=== PATIENT | female | born 1950 | race Caucasian/White ===

== ENCOUNTER → 2020-05-06 10:33 | Outpatient (BNVA) | payer MEDICARE, SELFPAY | PROVIDERS: PCP Family Medicine; Referring Provider Otolaryngology; Visit Provider Hospitalist | DX: R91.8 Other nonspecific abnormal finding of lung field (principal); J45.909 Unspecified asthma, uncomplicated; J98.11 Atelectasis; Z79.899 Other long term (current) drug therapy | CPT/HCPCS: 99214 ==

== ENCOUNTER → 2020-07-22 14:42 | Outpatient (BNVA) | payer MEDICARE, SELFPAY | PROVIDERS: PCP Family Medicine; Visit Provider Student in an Organized Health Care Education/Training Program | DX: M25.50 Pain in unspecified joint (principal); Z87.81 Personal history of (healed) traumatic fracture | CPT/HCPCS: 99202 ==

== ENCOUNTER → 2020-09-16 15:07 | Outpatient (BNVA) | payer MEDICARE, SELFPAY | PROVIDERS: PCP Family Medicine; Visit Provider Student in an Organized Health Care Education/Training Program | DX: Z76.89 Persons encountering health services in other specified circumstances (principal) | CPT/HCPCS: Q3014 ==

== ENCOUNTER 2020-10-15 12:40 | Outpatient (RCR) | payer MEDICARE, SELFPAY ==
--- NOTE | 2020-10-15 15:32 | MHC.PT.EP ---
[facility] [place] Office [place] Office [place] Office [address] Remy Garcia [address] [phone] F: [phone] F: [phone] F: [phone] F: [phone] Physical Therapy Plan of Care Date of Evaluation: 10/15/20 Date of Surgery: NA Diagnosis: LUMBAR SPINE PAIN Assessment: Pt IS 70 YO F REFERRED TO PT FROM DR JONES WITH LBP. Pt WITH ARTHRITIS IN LB AND OTHER AREAS. PRESENTS WITH LIMITED TRUNK AND LE FLEXIBLITY AND STRENGTH WITH ANTALGIC GT AND C/O PAIN IN LB (R SIDE WORSE THAN L) INTO R LE AND UP INTO R FLANK. Pt HAS NOT HAD PT IN PAST. REPORTS WOULD LIKE TO BE ABLE TO WALK FURTHER AND DO HOUSEWORK WITHOUT SIGNIF PAIN HER GOALS. SHOULD BENEFIT FROM PT FOR STRETCHING AND STRENGTHENING PROGRAM TO HELP MEET THESE GOALS Frequency and Duration: The patient will be seen 2X/WK X 6 WKS Short Term Goals: 1. I HEP WITH DC EX PLAN 2. INCREASED AWARENESS BACK CARE/POSTURE/BODY MECH 3. Pt ABLE TO WALK 15 MIN WITHOUT INCREASE IN BACK PAIN 4. CENTRALIZE SXS Tube Knitter Goals: 1. DECREASED BACK PAIN AT LEAST 50% WITH ADLS 2. DECREASED END RANGE PAIN WITH TRUNK ROM 3. Pt ABLE TO WALK 1 MILE WITHOUT SIGNIF INCREASE IN BACK PAIN Treatment Plan: Modalities to reduce pain, spasms and effusion. Manual therapy to restore motion and function. Therapeutic exercise to improve strength and flexibility. Neuromuscular re-education for posture and balance. Therapeutic activities to return to functional activities of daily living. Electronically signed by: MARIBEL MIX PT Please sign and return to therapist. Thank you for your referral.
== END 2020-11-24 12:40 | disposition other institution (70) ==
LOC: HO.PTWFD 12:40
PROVIDERS: PCP Family Medicine; Visit Provider Student in an Organized Health Care Education/Training Program
DX: M25.50 Pain in unspecified joint (principal)
CPT/HCPCS: 97110; 97161

== ENCOUNTER → 2020-11-04 11:23 | Outpatient (BNVA) | payer MEDICARE, SELFPAY | PROVIDERS: PCP Family Medicine; Visit Provider Hospitalist | DX: J44.9 Chronic obstructive pulmonary disease, unspecified (principal); R91.8 Other nonspecific abnormal finding of lung field; J98.11 Atelectasis; M35.01 Sjogren syndrome with keratoconjunctivitis; Z88.6 Allergy status to analgesic agent; Z87.891 Personal history of nicotine dependence | CPT/HCPCS: Q3014 ==

== ENCOUNTER 2021-01-26 07:47 | Outpatient (REF) | payer MEDICARE, SELFPAY ==
--- NOTE | ~2021-01-26 | XR_ITS ---
EXAMINATION: XR CHEST CLINICAL INFORMATION: Hemoptysis COMPARISON: Previous chest x-ray July 2017 from [facility] TECHNIQUE: 2 views of the chest were obtained. FINDINGS: The cardiac and mediastinal contours are stable. The lungs are clear. There is no pleural effusion or pneumothorax. There are degenerative changes of the spine. XR/XR chest 2V IMPRESSION: No evidence for acute disease in the chest.
== END 2021-01-26 07:48 | disposition home or self-care (01) ==
LOC: HO.XRAY 07:47
PROVIDERS: PCP Family Medicine; Visit Provider Hospitalist
DX: R04.2 Hemoptysis (principal); J44.9 Chronic obstructive pulmonary disease, unspecified; R91.8 Other nonspecific abnormal finding of lung field; Z87.891 Personal history of nicotine dependence; Z79.899 Other long term (current) drug therapy
CPT/HCPCS: 71046; 99212

== ENCOUNTER 2021-03-03 12:46 | Outpatient (REF) | payer MEDICARE, SELFPAY ==
--- NOTE | 2021-03-03 16:17 | PFT_ITS ---
FLOWS: FEV1 99% of predicted at 2.62 L. FVC 95% of predicted at 3.32 L. FEV1 to FVC ratio of 0.79. No bronchodilator response except in small to medium airways. LUNG VOLUMES: Total lung capacity 89% of predicted at 5.04 L. Residual volume 79% of predicted at 1.91 L. Slow vital capacity 96% of predicted at 3.13 L. Expiratory reserve volume 12% of predicted at 0.11 L. Diffusion capacity is mildly decreased. IMPRESSION: No obstructive or restrictive ventilatory defect. No bronchodilator response except in small to medium airways. Decreased expiratory reserve volume suggests extrathoracic restriction likely secondary to abdominal obesity. Decreased diffusion capacity suggests emphysema. MD CIPRIANO Celeste/MODL / [id number]
== END 2021-03-03 12:47 | disposition home or self-care (01) ==
LOC: HO.RESP 12:46
PROVIDERS: PCP Family Medicine; Visit Provider Hospitalist
DX: J44.9 Chronic obstructive pulmonary disease, unspecified (principal)
CPT/HCPCS: 94060; 94727; 94729

== ENCOUNTER → 2021-03-18 10:02 | Outpatient (BNVA) | payer MEDICARE, SELFPAY | PROVIDERS: PCP Family Medicine; Visit Provider Student in an Organized Health Care Education/Training Program | DX: M35.01 Sjogren syndrome with keratoconjunctivitis (principal); M85.80 Other specified disorders of bone density and structure, unspecified site; E55.9 Vitamin D deficiency, unspecified; M47.816 Spondylosis without myelopathy or radiculopathy, lumbar region | CPT/HCPCS: 99212 ==

== ENCOUNTER → 2021-04-27 14:11 | Outpatient (BNVA) | payer MEDICARE, SELFPAY | PROVIDERS: PCP Family Medicine; Visit Provider Hospitalist | DX: J44.9 Chronic obstructive pulmonary disease, unspecified (principal); R91.8 Other nonspecific abnormal finding of lung field; J98.11 Atelectasis; J45.909 Unspecified asthma, uncomplicated; R06.00 Dyspnea, unspecified; M35.01 Sjogren syndrome with keratoconjunctivitis | CPT/HCPCS: Q3014 ==

== ENCOUNTER 2021-05-20 14:32 | Outpatient (REF) | payer MEDICARE, SELFPAY ==
--- NOTE | ~2021-05-20 | CT_ITS ---
EXAMINATION: CT CHEST WITHOUT CONTRAST CLINICAL INFORMATION: Hemoptysis COMPARISON: Previous chest x-rays most recent December 2020 TECHNIQUE: Multidetector volumetric CT imaging of the chest was done. Axial MIP volume rendering provided. Sagittal and coronal reformatted images were obtained. This CT examination was performed using dose optimization techniques as appropriate, variously including the following: *Automated exposure control *Adjustment of mA and/or kV according to patient size (this includes techniques or standardized protocols for targeted exams where dose is matched to indication/reason for exam; i.e. extremities or head) *Use of iterative reconstruction technique DLP: 215 mGy-cm FINDINGS: LUNGS: There is a 5 mm nodule near the major fissure. This is immediately adjacent to vessels and is questionable for a vascular lesion axial image 256 series 7. There are increased peripheral or subpleural linear markings and some denser atelectasis or airspace disease in the posterior right lower lobe. There is an adjacent small cyst or bulla measuring 8 mm axial image 447 series 7. Some of this may may represent right lower lobe compression or atelectasis related to vertebral body bony osteophyte. There is a 4 mm peripheral or subpleural right lower lobe nodule versus atelectasis lateral costophrenic angle right lower lobe axial image 4:30 series 7. There is a 3 mm peripheral or subpleural left lower lobe nodule adjacent to the fissure axial image 289 series 7 suggestive of a subpleural lymph node. No endobronchial or endotracheal lesion is seen. MEDIASTINUM: The mediastinum is normal. PLEURA: There is no pleural effusion. No pleural mass or thickening. AXILLA: No lymphadenopathy. UPPER ABDOMEN: The liver is low in attenuation suggestive of fatty infiltration. The gallbladder has been removed. OSSEOUS STRUCTURES: There are degenerative changes of the spine. CT/CT chest wo con IMPRESSION: 5 mm right pulmonary nodule near the major fissure abutting the vessels. Appearance is questionable for a vascular lesion, AVM or varix. Follow-up CTA of the chest should be considered. Question compressive atelectasis of the posterior right lower lobe adjacent to vertebral body bony osteophyte. Small pulmonary nodules or micronodules probably representing small lymph nodes. According to the UPDATED 2017 Fleischner Society recommendations, the advised follow-up imaging for less than 6 mm nodule: Low risk, no chest CT follow-up and high risk, optional chest CT follow-up in one year.
== END 2021-05-20 14:33 | disposition home or self-care (01) ==
LOC: HO.CT 14:32
PROVIDERS: PCP Family Medicine; Visit Provider Hospitalist
DX: R91.8 Other nonspecific abnormal finding of lung field (principal); J98.11 Atelectasis; R06.00 Dyspnea, unspecified; M35.01 Sjogren syndrome with keratoconjunctivitis
CPT/HCPCS: 71250

== ENCOUNTER 2021-11-23 13:48 | Outpatient (REF) | payer MEDICARE, SELFPAY ==
--- NOTE | ~2021-11-23 | CT_ITS ---
EXAMINATION: CT CHEST WITHOUT CONTRAST CLINICAL INFORMATION: Follow up pulmonary nodules. COMPARISON: CT chest 05/20/2021. TECHNIQUE: Multidetector volumetric CT imaging of the chest was done. Axial MIP volume rendering provided. Sagittal and coronal reformatted images were obtained. This CT examination was performed using dose optimization techniques as appropriate, variously including the following: *Automated exposure control *Adjustment of mA and/or kV according to patient size (this includes techniques or standardized protocols for targeted exams where dose is matched to indication/reason for exam; i.e. extremities or head) *Use of iterative reconstruction technique DLP: 245 mGy-cm FINDINGS: SOLAR ENERGY SYSTEM INSTALLER: Well-inflated lungs. LUNGS: The lungs are well inflated without acute process. There is a known pulmonary nodule adjacent to the major fissure right upper lobe posteriorly measuring 6 mm on axial image 273/7, previously measured 5 mm. There is a 5 mm nodule left lower lobe superior segment axial image 374/7 previously measured 4 mm on axial image 372/7, 5 mm nodule right CP angle axial image 449/7, previously measured 4 mm. There is a small bulla with adjacent compressive atelectasis with air bronchogram posteromedial basal segment right lower lobe, stable. Minimal compressive atelectatic changes along the posteromedial segment extending superiorly from this bulla is noted similar in fashion to previous study. The ground-glass density seen in the posterior right lower lobe in the retrocardiac area has resolved. Previously seen on axial image 354/7. Minimal subpleural reticular stranding is seen in left lower lobe. MEDIASTINUM: The thyroid lobes are symmetric and normal. The central trachea and the bronchi are widely patent. Heart size and the great vessels are normal caliber. Small peritracheal lymph nodes are present. No pericardial effusion seen. PLEURA: There is no pleural effusion. No pleural mass or thickening. AXILLA: Small shotty lymph nodes are seen in the axilla. UPPER ABDOMEN: Visualized liver, spleen, pancreas and bilateral adrenal glands are unremarkable. The gallbladder has been surgically removed. OSSEOUS STRUCTURES: No aggressive lytic or sclerotic process seen. There is moderate ventral dorsal spine spondylosis. CT/CT chest wo con IMPRESSION: Minimal increase in pulmonary nodules by 1 mm compared to last study 05/20/2021. Right lower lobe bulla with adjacent atelectasis medial basal segment is stable. Recommend followup PET/CT exam or followup CT in 1 year. Fleischner guidelines were followed.
== END 2021-11-23 13:49 | disposition home or self-care (01) ==
LOC: HO.CT 13:48
PROVIDERS: Visit Provider Hospitalist
DX: R91.8 Other nonspecific abnormal finding of lung field (principal)
CPT/HCPCS: 71250

== ENCOUNTER → 2021-12-08 11:04 | Outpatient (BNVA) | payer MEDICARE, SELFPAY | PROVIDERS: PCP Family Medicine; Visit Provider Hospitalist | DX: Z13.89 Encounter for screening for other disorder (principal) | CPT/HCPCS: Q3014 ==

== ENCOUNTER 2023-11-28 14:42 | Outpatient (AMB) | payer MEDICARE, SELFPAY ==
[2023-11-28 14:51] VITALS: BP 124/76; PULSE 83; RESP 18; O2SAT 96; BMI 32.0
--- NOTE | 2023-11-28 14:51 | A.OFFVIS_ITS ---
Vital Signs 11/28/23 14:51 Height 5 ft 8 in Weight 210 lb 3 oz BMI 32.0 BP 124/76 Blood Pressure Location Lt brachial Position Sitting Respiration 18 Pulse 83 Pulse Source Pulse Oximeter Pulse Oximetry (%) 96 Oxygen Delivery Method Room Air Intake Visit Reasons: copd/pulm nodules Allergies acetaminophen [From PERCOCET] Allergy (Severe, Verified 11/28/23 14:48) RASH HPI Comments Details: The patient is a 73-year-old woman with known history of pulmonary nodules and asthma. Overall her respiratory status waxes and wanes. She still has a difficult time going up a flight of stairs. Joic-wj-[id number] severity. She does use her Symbicort on a regular basis. She tries not to use her rescue inhaler. She is concerned about the winter because as usually her worse months. At this point will optimize her respiratory therapy adding Spiriva to her regimen. We also looked at her CT scan of the chest last done August 2019 demonstrating stable pulmonary nodules although she did have increased atelectasis specially at the right base. Will plan to repeat a CT scan of the chest sometime in the fall of 2020. 12/08/2021 the patient has a telephone visit today. She is doing relatively well. Denies any significant shortness of breath or wheezing. She does have intermittent cough mild in severity. She continues use her nebulized therapy with good response. She did recently have a CT scan of the chest that I personally reviewed and compared to previous. Patient has multiple pulmonary nodules. It appears that 1 of the nodules slightly increased in size. But all the nodules are subcentimeter in size largest 1 measuring 6 mm. There was a question of PET scan on the actual impression from the radiologist. However explained to the patient that based on the small size a PET scan would not be an accurate study at this time. No significant changes from the nodule standpoint. Will request another CT scan in a year's time. Will plan to discuss the case in tumor conference with Radiology present. This will be can clear 5 the request for PET scan. we also reviewed her last pulmonary function study that actually occurred back in March 2021 which demonstrated a mild diffusion impairment along with a low normal total lung capacity. The patient understands that she does have increased abdominal pressure due to an elevated BMI that is likely contributing to the low total lung capacity and diffusing capacity. The patient also has some evidence of atelectasis on her CT scan although some of it has actually improved when compared to previous. 11/28/2023 the patient is here for pulmonary follow-up visit. Overall the patient has been doing well. She was lost to follow-up for appeared of time because she was trying change her care to [facility]. But was too far away. Her last CT scan of the chest was back in January 2023 and will send a Bakari. I do have city although have not been able to downloaded into the system. They did documented new 3 mm pulmonary nodule. His hard to know if this nodule is completing but we need to compared to previous. The patient has had numerous nodules prior to that. The largest nodule documented on her last CT scan from [place] back in January was most 5.9-6 mm in size. On that CT scan also described ground-glass opacities in the dimensions small airways disease suggesting mosaic pattern. We did review her most recent CT scan that we have available the system from 2021 and I did not see any mosaic pattern at that time. The patient did have significant atelectasis primarily in the right lower lobe area. Once we were able to download this CD will get compare. The patient is concerned about too many CT scans because the very expensive with a co-pay of 250 dollars. Therefore will try to minimize the exposure to radiation into the exposure to the cat scans. Although now with a new 3 mm pulmonary nodule we need to continue surveillance. She stopped the nebulized therapy was switched over to Symbicort. She does use it as needed. She is still getting shortness breath with activity. Gqph-ac-npfzixig severity. She also has other comorbidities such as musculoskeletal issues that also limit her activity. She does we did talk about pulmonary rehabilitation. When she finishes home physical therapy we can consider pulmonary function studies in order to get a pulmonary rehabilitation. [facility] Medical History (Updated 11/28/23 @ 21:16 by Yogi Villasenor MD) Dyspnea Asthma-COPD overlap syndrome Osteopenia Atelectasis Pulmonary nodules Asthma Surgical History Hx of cholecystectomy Family History Other HTN (hypertension) Social History Alcohol intake: current Patient Tobacco Use Status: Former Tobacco user Tobacco use type: Cigarette Years Smoked: 5 years Review of Systems Const Denies night sweats ENT Denies change in voice, Denies lip swelling, Reports epistaxis, Denies mouth pain, Reports nasal congestion, Reports nasal discharge and Denies tongue swelling Card Denies chest pain and Reports dyspnea on exertion Resp Reports cough, Denies hemoptysis and Reports dyspnea on exertion GI Denies abdominal pain Musc Reports abnormal gait Neuro Denies Neuro-related abnormal movements and Reports abnormal gait Psych Denies no additional complaints Solis/Lymph Denies easy bleeding and Denies lymphadenopathy Aller/Immun Denies lip swelling and Denies tongue swelling Physical Exam Vital Signs: Last Vital Signs Pulse 83 11/28/23 14:51 Resp 18 11/28/23 14:51 BP 124/76 11/28/23 14:51 Pulse Ox 96 11/28/23 14:51 Oxygen Delivery Method Room Air 11/28/23 14:51 BMI result Body Mass Index 32.0 Const General: comfortable and alert HEENT Head: Yes normocephalic General nose exam: Abnormal external nose present and Nasal discharge present Eyes Pupils: Equal, round and reactive pupils present Neck Neck: Yes normal visual inspection, Yes full ROM and Yes no lymphadenopathy Chest Chest palpation & inspection: normal inspection of the chest Resp Effort & Inspection: normal respiratory effort Auscultation: diminished lung sounds Cardio Rate: regular rate Rhythm: regular rhythm Heart sounds: S1 normal heart sound present and S2 normal heart sound present GI Palpation (GI): Soft to palpation and nontender Auscultation: normal bowel sounds General: Yes no CVA tenderness Back/Spine/Pelvis Back: no CVA tenderness Skin General skin exam: no rashes or lesions noted Neuro Cranial nerves: Yes Equal, round and reactive pupils present Extrem General: Yes no clubbing, cyanosis or edema Assessment & Plan Assessment & Plan (1) Asthma-COPD overlap syndrome: Code(s): J44.9 - Chronic obstructive pulmonary disease, unspecified Category: Medical (2) Pulmonary nodules: Code(s): R91.8 - Other nonspecific abnormal finding of lung field Category: Medical (3) Sjogren's syndrome with keratoconjunctivitis sicca: Code(s): M35.01 - Sjogren syndrome with keratoconjunctivitis Category: Medical (4) Dyspnea: Code(s): R06.00 - Dyspnea, unspecified Category: Medical Qualifiers: Dyspnea type: dyspnea on exertion Qualified Code(s): R06.09 - Other forms of dyspnea (5) Atelectasis: Code(s): J98.11 - Atelectasis Category: Medical (6) Asthma: Code(s): J45.909 - Unspecified asthma, uncomplicated Category: Medical Qualifiers: Asthma severity: moderate Asthma persistence: persistent Asthma complication type: uncomplicated Qualified Code(s): J45.40 - Moderate persistent asthma, uncomplicated Plan Continue symbicort CT chest in 1 year F/U 6-12 months Medications: New budesonide-formoterol 80-4.5 mcg/actuation (Symbicort) 2 puffs inhalation Q12H 90 days 10.2 grams 3RF Coding Level of Care Code Est Pt Level 4 (38932) Diagnoses Asthma-COPD overlap syndrome J44.9 Pulmonary nodules R91.8 Sjogren's syndrome with keratoconjunctivitis sicca M35.01 Dyspnea on exertion R06.09 Dyspnea type: dyspnea on exertion Atelectasis J98.11 Moderate persistent asthma without complication J45.40 Asthma severity: moderate Asthma persistence: persistent Asthma complication type: uncomplicated Time Spent (min) 17
== END 2023-11-28 15:17 | disposition home or self-care (01) ==
PROVIDERS: PCP Family Medicine; Referring Provider Nurse Practitioner; Visit Provider Hospitalist
DX: J44.9 Chronic obstructive pulmonary disease, unspecified (principal); R91.8 Other nonspecific abnormal finding of lung field; M35.01 Sjogren syndrome with keratoconjunctivitis; R06.09 Other forms of dyspnea; J98.11 Atelectasis; J45.40 Moderate persistent asthma, uncomplicated
CPT/HCPCS: 99214

== ENCOUNTER → 2023-11-28 14:42 | Outpatient (BNVA) | payer MEDICARE, SELFPAY | PROVIDERS: PCP Family Medicine; Referring Provider Nurse Practitioner; Visit Provider Hospitalist | DX: J44.9 Chronic obstructive pulmonary disease, unspecified (principal); R91.8 Other nonspecific abnormal finding of lung field; M35.01 Sjogren syndrome with keratoconjunctivitis; R06.09 Other forms of dyspnea; J98.11 Atelectasis; J45.40 Moderate persistent asthma, uncomplicated; Z79.899 Other long term (current) drug therapy | CPT/HCPCS: 99212 ==

== ENCOUNTER 2023-12-22 11:07 | Outpatient (AMB) | payer MEDICARE, SELFPAY ==
--- NOTE | 2023-12-22 11:17 | AM.OFFWIN_ITS ---
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 Required: No Allergies acetaminophen [From PERCOCET] Allergy (Severe, Verified 12/22/23 11:20) RASH Medication List - Last Reconciled 12/22/23 by Janelle Joseph PA-C albuterol sulfate 90 mcg/actuation 2 puffs inhalation Q6H PRN amlodipine 10 mg PO DAILY ascorbic acid (vitamin C) 500 mg PO DAILY budesonide 0.5 mg (2 mL) inhalation DAILY 30 days budesonide-formoterol 80-4.5 mcg/actuation (Symbicort) 2 puffs inhalation Q12H 90 days cyclobenzaprine 10 mg PO TID PRN 10 days losartan 100 mg PO DAILY magnesium oxide 500 mg PO DAILY omeprazole 20 mg PO DAILY Do you need a note to return to daycare/school/sports/work: No HPI Neck pain HPI Details Pt is a 73 y/o female with a self-reported medical history of arthritis, hypertension, CKD unknown stage, asthma and COPD overlap presents today to with complaints of neck pain. She states it started about a week ago. She did not have any specific trauma to the neck but did have a a fall a couple weeks prior to the neck pain starting. She did not hit her head but did lose her balance and fell backwards. She felt overall okay from the fall. She states that her neck is painful and it was hard to move her head from [id number]. She is able to look up and down without difficulty. No radiation into the arms but it does feel like it pulls into the right shoulder and upper back. She has been using ibuprofen and ice with only minimal improvement. She states that she uses the ibuprofen intermittently because she does note that she is kidney disease and should not be using it at all. She states that she really wants an injection from her clothing supervisor but her clothing supervisor will not see her because she has not sure if this is related to arthritis. She says that that is what they told her when she called to book an appointment. She is cur rently in between primary care offices and not seeing her new primary care until the fall. She was previously following with [facility] but they recently started [facility]. She states that they can not afford to stay with them. She has the chiropractor twice without significant improvement. She states she has never really had neck issues prior. Denies any chest pain or shortness a breath. No upper extremity weakness, numbness or tingling. [facility] Medical History (Updated 12/22/23 @ 11:48 by Janelle Joseph PA-C) Dyspnea Asthma-COPD overlap syndrome Osteopenia Atelectasis Pulmonary nodules Asthma Surgical History Hx of cholecystectomy Family History Other HTN (hypertension) Social History Alcohol intake: current Patient Tobacco Use Status: Former Tobacco user Tobacco use type: Cigarette Years Smoked: 5 years Physical Exam Vital Signs: Last Vital Signs Temp 97.6 F 12/22/23 11:28 Pulse 83 12/22/23 11:28 BP 132/74 12/22/23 11:28 Pulse Ox 97 12/22/23 11:28 Oxygen Delivery Method Room Air 12/22/23 11:28 BMI result Body Mass Index 32.2 Const Orientation/consciousness: patient oriented x3 HEENT Ears: hearing grossly normal bilaterally Neck Neck: Yes normal visual inspection, Yes full ROM and Yes tender (Tenderness to palpation along the cervical paraspinous muscles.) Thyroid: Thyroid normal Lymphatic: no lymphadenopathy noted Resp Auscultation: clear to auscultation bilaterally Cardio Rate: regular rate Rhythm: regular rhythm Heart sounds: S1 normal heart sound present and S2 normal heart sound present Skin General skin exam: no rashes or lesions noted Neuro Other: Strength of the upper extremities is 5/5 bilaterally. DTRs intact. General: patient oriented x3, gait normal and no focal motor deficits Results Reviewed Results Reviewed: The only labs in the system are from [facility] 2020. Her GFR was 58 and her creatinine 1. Her LFTs were slightly elevated at 44 Assessment & Plan Assessment & Plan (1) Neck pain on right side: Code(s): M54.2 - Cervicalgia Plan: Advised to avoid use of NSAIDs. We will treat with a muscle relaxant. Discussed risks and benefits and adverse effects of this medication. I have encouraged short term follow up with her PCP and advised her to contact to see if she can get in sooner. X-ray was ordered per her request of her neck. Again, we will follow up pending test results. I have encouraged heat, gentle stretching and to consider physical therapy. Patient understands and agrees with this plan. (2) Trapezius muscle spasm: Code(s): M62.838 - Other muscle spasm Plan: As above Orders: Orders XR cervical spine 3V Today M54.2 - Cervicalgia, M62.838 - Other muscle spasm Medications: New cyclobenzaprine 10 mg PO TID 10 days PRN 30 tabs 0RF muscle spasm cyclobenzaprine 10 mg PO TID 10 days PRN 30 tabs 0RF muscle spasm Coding Level of Care Code New Pt Level 3 (07296) Diagnoses Neck pain on right side M54.2 Trapezius muscle spasm M62.838
[2023-12-22 11:28] VITALS: BP 132/74; PULSE 83; TEMP 36.4; O2SAT 97; BMI 32.2
== END 2023-12-22 11:58 | disposition home or self-care (01) ==
PROVIDERS: PCP Family Medicine; Visit Provider Physician Assistant
DX: M54.2 Cervicalgia (principal); M62.838 Other muscle spasm
CPT/HCPCS: 99203

== ENCOUNTER 2024-02-15 11:55 | Outpatient (REF) | payer MEDICARE, SELFPAY | END 2024-02-15 11:56 | disposition home or self-care (01) | LOC: CF 11:55 | DX: Z13.89 Encounter for screening for other disorder (principal) ==

== ENCOUNTER 2024-05-09 11:15 | Outpatient (AMB) | payer MEDICARE, SELFPAY ==
--- NOTE | 2024-05-09 11:16 | A.OFFPC_ITS ---
Vital Signs 05/09/24 11:28 05/09/24 12:11 Height 5 ft 8 in Weight 215 lb 4 oz BMI 32.7 BP 142/76 H 124/76 Blood Pressure Location Rt brachial Rt brachial Position Sitting Sitting Respiration 15 Pulse 80 Pulse Source Pulse Oximeter Pulse Oximetry (%) 96 Oxygen Delivery Method Room Air Intake Visit Reasons: RN PROGRESSIVE CARE-EST CARE Intake Note: new patient to establish care Allergies acetaminophen [From PERCOCET] Allergy (Severe, Verified 05/09/24 11:39) RASH latex Allergy (Severe, Verified 05/09/24 11:39) Rash Medication List - Last Reconciled 05/09/24 by Sanjuana Orourke, MACHINE OR MACHINERY MECHANIC- albuterol sulfate 90 mcg/actuation 2 puffs inhalation Q6H PRN albuterol sulfate mg inhalation amlodipine (Norvasc) 5 mg PO DAILY ascorbic acid (vitamin C) 500 mg PO DAILY cholecalciferol (vitamin D3) 25 mcg PO DAILY docosahexaenoic acid-epa 120-180 mg (Fish Oil) 1 cap PO DAILY linaclotide (Linzess) 290 mcg PO DAILY losartan 100 mg PO DAILY multivitamin 1 tab PO DAILY omeprazole 10 mg PO DAILY Tobacco use date assessed: 05/09/24 Fall risk assessment: 2 + Falls in past year Last assessed Fall Risk: 05/09/24 Dental Screening Dental Screen Date: 05/09/24 Did you have a dental visit in the last 12 months?: Yes Did you have a dental problem in the last 6 months where you did not have access to dental care?: No Was dental information given to patient?: Patient has dentist HPI HPI Comments History of Present Illness Details 74 y/o F with arthritis, hypertension, C KD unknown stage, asthma and COPD overlap, osteopenia, Pulmonary nodules, former smoker, Sjogren's, GERD, b12 def, seasonal allergies, constipation, fatty liver (CT chest 05/20/21), DJD of spine, fatty liver s/p cholecystectomy, colectomy Specialists Pulm Rheum GI - [facility] Dr Thomas for pain mgmt/rheum Renal - Dr Pinto annual visits Dr Stallworth Chiro Dr Rodney Routine dental Health Maintenance: Mammo declined. DEXA done in the last year Colon has had one done, repeat recommended but not done yet. Pap Tdap unsure, will wait to review PCP records. Flu and COVID vaccines 2023 Here today to est care, coming from [facility] Records not available, requested. Would like to see Dr. Gomez going forward Diverticulitis s/p colectomy: Was active w/ Dr Garcia for years; on Linzess. Advised to stay on life long. [facility], recent visit 05/2024. Annual visits only Chronic pain: was getting inj in the left hip bursa; has been on oral meds in the past; has several side effects so does not like to take them. Uses Ibuprofen with some pain relief. Sprained right thumb after a mechanical fall this year, this was about 6 months ago. Did go to the ED for this, told it was not fractured. However she cont to have pain in the thumb. Hurts w day to day activities. Wonders about an xray Trouble falling asleep, used Nyquil with + effect, wonders if she can cont to take this for insomnia when not sick Takes benadryl 25mg po BID for chronic allergies. States if she doesnt take this she develops a rash. Tried melatonin w/o relief. worried about CHF given family hx and sob. Exam: Awake alert NAD RRR LS CTAB Right upper ext neurovasc intact, pain w/ flexion of right wrist, palp over radial aspect, normal strength. Fingers/thumb WNL. No edema bilateral lower extremities Plan: Xray of R wrist and thumb. FU once results are back Encouraged to get previous medical records before her next appointment Screening labs today, within normal limits with the exception of elevated LFTs. Discouraged use of NyQuil for sleep. Reviewed the Beers criteria. She is already on Benadryl and has been taking this for years. Reports that if she stops she has a adverse effects. Okay to continue right now however discouraged any concurrent antihistamine use. Discussed the diagnosis of Sjorgens Reports that she does not think that she has this. Reports that overall she feels dry specifically her eyes. Reviewed the rheumatology note with her today. Would like the Sjorgen antibodies drawn again just a confirmed the diagnosis. The antibody results are pending at the time of the close of this note. In regards to her concern about the shortness of breath and concern for CHF. Did advise for her to continue to follow up with her rehabilitation counselor. She does have extensive pulmonary disease. She can follow up with the primary care provider about CHF. She does report that she has had an echocardiogram done in the past however this was years ago. She does not remember the results. She does not show any signs or symptoms of CHF today. She appears euvolemic Advised to continue routine follow up with her care team. Mentioned needed to change insurance and has several questions about her options, refer to the Pull program. Return to the office in about 4-6 weeks to establish care with Dr. Gomez, so sharmaine as needed This note is constructed using voice recognition software. While every effort has been made to ensure accuracy in maintenance and engineering manager, still errors may have been included Sometimes, these errors may affect the content or meaning of the given sentence . Total time spent caring for the patient today was 60 minutes. This includes time spent before the visit reviewing the chart, time spent during the visit, and time spent after the visit on documentation [facility] Medical History (Updated 05/09/24 @ 16:32 by Sanjuana Orourke, [facility]) GERD (gastroesophageal reflux disease) RP (rectal prolapse) Hemoptysis Dyspnea Asthma-COPD overlap syndrome Osteopenia Atelectasis Pulmonary nodules Asthma Surgical History (Updated 05/09/24 @ 12:37 by Lalito Ruiz MA) H/O: hysterectomy Hx of cholecystectomy Family History (Updated 05/09/24 @ 12:39 by Lalito Ruiz MA) Mother Asthma HTN (hypertension) Cardiovascular disease Sister Asthma HTN (hypertension) Cancer Paternal Grandmother Colon cancer Social History (Updated 05/09/24 @ 11:28 by Lalito Ruiz MA) Household Members: Spouse Housing: Apartment Are you a primary before and after school daycare worker to a significant other at home: No Do you presently have visiting nurse or other home services: No Alcohol intake: never Patient Tobacco Use Status: Never used Tobacco e-Cigarette/Vaping Use: Never Used service: No Current occupational status: retired Current occupational exposures/hazards: No Cognitive needs: No Hearing needs: Yes Vision needs: Yes (wear glasses) Questionnaire PHQ-9 Over the last 2 weeks, how often have you been bothered by any of the following problems? 1. Little interest or pleasure in doing things: not at all 2. Feeling down, depressed, or hopeless: not at all 3. Trouble falling or staying asleep, or sleeping too much: several days 4. Feeling tired or having little energy: several days 5. Poor appetite or overeating: not at all 6. Feeling bad about yourself - or that you are a failure or have let yourself or your family down: not at all 7. Trouble concentrating on things, such as reading the newspaper or watching television: not at all 8. Moving or speaking so slowly that other people could have noticed. Or the opposite - being so fidgety or restless that you have been moving around a lot more than usual: not at all 9. Thoughts that you would be better off or of hurting yourself in some way: not at all Total score: 2 Depression Screening Interpretation: Negative Depression Screening Done: Yes 99560 - PHQ-9 Billing: Yes Source: Developed by Drs. Malik Thomas, Berenice Ac, Mina Pérez and colleagues, with an educational lexii from [employer]. Thrive Questionnaire Date Thrive assessed: 05/09/24 I am a: Patient What is your living situation today?: I have a steady place to live Within the past 12 months, did the food you bought not last and you didn't have the money to get more?: Never true Within the past 12 months, did you worry whether your food would run out before you got money to buy more?: Never true Do you have trouble paying for medicines?: No Do you have trouble getting transportation to medical appointments?: No Do you have trouble paying your heating and electricity bill?: No Do you have trouble taking care of your child, family member or friend?: No Do you have trouble with day-to-day activities such as bathing, preparing meals, shopping, managing finances, etc.?: Yes Are you currently unemployed and looking for a job?: No Are you interested in more education?: No Please select the resources that you would like help with: None Currently or been in a relationship where the following occur: No concerns reported THRIVE Score: 0 AUDIT C Alcohol Use Questionnaire (AUDIT-C) 1. How often do you have a drink containing alcohol?: Never 2. How many drinks containing alcohol do you have on a typical day when you are drinking?: 1 or 2 3. How often do you have six or more drinks on one occasion?: Never Total Score: 0 Score Reviewed/Action Taken: Yes IJEOMA-7 AMB Questionnaire IJEOMA-7 Date IJEOMA - 7 assessed: 05/09/24 Feeling nervous, anxious, or on edge: 0 = Not at all Not being able to stop or control worryin = Not at all Worrying too much about different things: 0 = Not at all Trouble relaxin = Not at all Being so restless that it is hard to sit still: 0 = Not at all Becoming easily annoyed or irritable: 0 = Not at all Feeling afraid as if something awful might happen: 0 = Not at all Total IJEOMA-7 score (0-4 normal; 5-9 mild; 10-14 moderate; 15-21 severe): 0 Source: Developed by Drs. Malik Thomas, Berenice Ac, Mina Pérez and colleagues, with an educational lexii from [employer]. IJEOMA-7 Assessment Billing IJEOMA-7 Assessment Tool: IJEOMA-7 Assessment 05910 ACT Questionnaire In the past 4 weeks, how much of the time did your asthma keep you from getting as much done at work, school or at home?: Some of the time During the past 4 weeks, how often have you had shortness of breath?: 1-2 times a week During the past 4 weeks, how often did your asthma symptoms wake you up at night or earlier than usual in the morning?: 2-3 nights a week During the past 4 weeks, how often have you had to use your rescue inhaler or nebulizer medication?: 1-2 times a week How would you rate your asthma control during the past 4 weeks?: Somewhat controlled Score: 14 Physical exam (Primary Care) Vital Signs: Last Vital Signs Pulse 80 05/09/24 11:28 Resp 15 05/09/24 11:28 BP 124/76 05/09/24 12:11 Pulse Ox 96 05/09/24 11:28 Oxygen Delivery Method Room Air 05/09/24 11:28 BMI result Body Mass Index 32.7 BMI Assessment/Plan discussion: High BMI High, discussed plan: lifestyle Tobacco/Smoking Status: Tobacco use Status Tobacco use date assessed 05/09/24 05/09/24 11:29 Patient Tobacco Use Status Never used Tobacco 05/09/24 11:29 Tobacco use type 05/09/24 11:29 e-Cigarette/Vaping Use Never Used 05/09/24 11:29 PHQ-9: PHQ-9 Score PHQ-9: Total score 2 05/09/24 15:34 Depression Screening Interpretation: Negative Thrive Assessment: Date of Thrive Assessment Date Thrive assessed 05/09/24 05/09/24 12:39 Currently or been in a relationship where the following occur: No concerns reported Results Reviewed Results Reviewed: RUN: 05/09/24 1503 PAGE 1 [facility] [address] [place] [id number] Oyster Floater: Duran Marte M.D. Specimen Inquiry Name: Agnes Azul Age/Sex: 74/F : 1950 Unit#: [id number] Attend Dr: Sanjuana Orourke Re05/09/24 Status: REG REF [facility] Disch: SPEC : [id number] FABRIZIO: 05/09/24 STATUS: COMP REQ : [id number] RECD: 05/09/[address]: Sanjuana Orourke COMP: 05/09/24 ENTERED: 05/09/24-[address] [facility] [address]: ORDERED: CMP, IRON PROF, Vitamin D 25-OH, TSH Rflx Test Result Flag Reference Sodium 139 135-145 mmol/L Potassium 4.1 3.3-5.1 mmol/L CL 106 96-108 mmol/L CO2 24 22-29 mmol/L Gap 13 12-20 BUN 14 9-16 mg/dL Creat 0.70 0.5-1.4 mg/dL EGFR > 60 NOTE: For -Nauruan individuals, multiply the result by 1.210. Chronic Kidney Disease: Estimated GFR < 60 mL/min/1.73m2 Severe Kidney Disease: Estimated GFR < 15 mL/min/1.73m2 Glucose, Random 106 60-115 mg/dL CA 10.0 8.4-10.2 mg/dL Iron 111 30-160 mcg/dL TIBC 281 228-428 mcg/dL Saturation 40 15-50 % UIBC 170 ug/dL Total Bili 0.8 0.0-1.0 mg/dL AST (GOT) 93 H 5-31 U/L ALT (GPT) 75 H 0-31 U/L Protein, Total 7.7 6.5-8.0 g/dL Alb 4.3 3.5-5.0 g/dL Alk Phos 93 39-117 U/L Vit D 25-OH Tot 64.6 >30 ng/mL Health Based Reference Values* < 20 ng/mL Deficient 20-30 ng/mL Insufficient > 30 ng/mL Sufficient *Yaron CRONIN. N Engl J Med. 2007;357:266-280 Care must be taken in interpreting Vitamin D results from different laboratories and methodologies. Published data demonstrated that results from patients undergoing hemodialysis may show a negative bias when tested with various automated 25-OH vitamin D assays when compared to LC-MS/MS. When testing samples from patients whose predominant form of Vitamin D is Vitamin D2, such as patients receiving Vitamin D2 supplementation, results that are subtherapeutic should be confirmed with another method such as LC-MS/MS. TSH 1.21 0.32-4.0 uIU/mL Coding Level of Care Code New Pt Level 5 (23264) Complex EM visit Add On G2211 Diagnoses Osteopenia of multiple sites M85.89 Osteopenia location: multiple sites Pain of right thumb M79.644 Pain in right wrist M25.531 Sjogren's syndrome with keratoconjunctivitis sicca M35.01 Vitamin D deficiency E55.9 Primary hypertension I10 Hypertension type: primary hypertension Fatty liver K76.0 B12 deficiency E53.8 Chronic constipation K59.09 Class 1 obesity with serious comorbidity and body mass index (BMI) of 32.0 to 32.9 in adult E66.811; Z68.32 BMI 32.0-32.9,adult Z68.32 Asthma-COPD overlap syndrome J44.9 Additional Codes IJEOMA-7 Assessment Billing - IJEOMA-7 Assessment Tool: IJEOMA-7 Assessment 36147 ([id number]) Assessment & Plan Assessment & Plan (1) Osteopenia: Comment: (Bone Dexa Femoral T-Score -1.4 on 07/29/2020) Code(s): M85.80 - Other specified disorders of bone density and structure, unspecified site Category: Medical Qualifiers: Osteopenia location: multiple sites Qualified Code(s): M85.89 - Other specified disorders of bone density and structure, multiple sites Plan: . (2) Pain of right thumb: Code(s): M79.644 - Pain in right finger(s) Category: Medical Plan: . (3) Pain in right wrist: Code(s): M25.531 - Pain in right wrist Category: Medical Plan: . (4) Sjogren's syndrome with keratoconjunctivitis sicca: Code(s): M35.01 - Sjogren syndrome with keratoconjunctivitis Category: Medical Plan: . (5) Vitamin D deficiency: Code(s): E55.9 - Vitamin D deficiency, unspecified Category: Medical Plan: . (6) HTN (hypertension): Code(s): I10 - Essential (primary) hypertension Category: Medical Qualifiers: Hypertension type: primary hypertension Qualified Code(s): I10 - Essential (primary) hypertension Plan: . (7) Fatty liver: Code(s): K76.0 - Fatty (change of) liver, not elsewhere classified Category: Medical Plan: . (8) B12 deficiency: Code(s): E53.8 - Deficiency of other specified B group vitamins Category: Medical Plan: . (9) Chronic constipation: Code(s): K59.09 - Other constipation Category: Medical Plan: . (10) Class 1 obesity with serious comorbidity and body mass index (BMI) of 32.0 to 32.9 in adult: Comment: with HTN & COPD Code(s): E66.811 - Obesity, class 1; Z68.32 - Body mass index [BMI] 32.0-32.9, adult Category: Medical (11) BMI 32.0-32.9,adult: Code(s): Z68.32 - Body mass index [BMI] 32.0-32.9, adult Category: Medical (12) Asthma-COPD overlap syndrome: Code(s): J44.9 - Chronic obstructive pulmonary disease, unspecified Category: Medical Plan . Orders: Orders XR finger RT min 2V Today M79.644 - Pain in right finger(s), M85.80 - Other specified disorders of bone density and structure, unspecified site, W19.XXXA - Unspecified fall, initial encounter XR wrist RT 2V Today M25.531 - Pain in right wrist, M79.644 - Pain in right finger(s), M85.80 - Other specified disorders of bone density and structure, un specified site Complete Blood Count no Diff Today E53.8 - Deficiency of other specified B group vitamins, E55.9 - Vitamin D deficiency, unspecified, I10 - Essential (primary) hypertension, K76.0 - Fatty (change of) liver, not elsewhere classified, M35.01 - Sjogren syndrome with keratoconjunctivitis, M85.80 - Other specified disorders of bone density and structure, unspecified site LDL Cholesterol Direct Today E53.8 - Deficiency of other specified B group vitamins, E55.9 - Vitamin D deficiency, unspecified, I10 - Essential (primary) hypertension, K76.0 - Fatty (change of) liver, not elsewhere classified, M35.01 - Sjogren syndrome with keratoconjunctivitis, M85.80 - Other specified disorders of bone density and structure, unspecified site TSH reflex Free T4 Today E53.8 - Deficiency of other specified B group vitamins, E55.9 - Vitamin D deficiency, unspecified, I10 - Essential (primary) hypertension, K76.0 - Fatty (change of) liver, not elsewhere classified, M35.01 - Sjogren syndrome with keratoconjunctivitis, M85.80 - Other specified disorders of bone density and structure, unspecified site Microalbumin, Random (w Creat) Today E53.8 - Deficiency of other specified B group vitamins, E55.9 - Vitamin D deficiency, unspecified, I10 - Essential (primary) hypertension, K76.0 - Fatty (change of) liver, not elsewhere classified, M35.01 - Sjogren syndrome with keratoconjunctivitis, M85.80 - Other specified disorders of bone density and structure, unspecified site IRON PROFILE Today E53.8 - Deficiency of other specified B group vitamins, E55.9 - Vitamin D deficiency, unspecified, I10 - Essential (primary) hypertension, K76.0 - Fatty (change of) liver, not elsewhere classified, M35.01 - Sjogren syndrome with keratoconjunctivitis, M85.80 - Other specified disorders of bone density and structure, unspecified site Sjogren's Antibodies Today E53.8 - Deficiency of other specified B group vitamins, E55.9 - Vitamin D deficiency, unspecified, I10 - Essential (primary) hypertension, K76.0 - Fatty (change of) liver, not elsewhere classified, M35.01 - Sjogren syndrome with keratoconjunctivitis, M85.80 - Other specified disorders of bone density and structure, unspecified site Comprehensive Met. Panel Today E53.8 - Deficiency of other specified B group vitamins, E55.9 - Vitamin D deficiency, unspecified, I10 - Essential (primary) hypertension, K76.0 - Fatty (change of) liver, not elsewhere classified, M35.01 - Sjogren syndrome with keratoconjunctivitis, M85.80 - Other specified disorders of bone density and structure, unspecified site Hemoglobin A1c Today E53.8 - Deficiency of other specified B group vitamins, E55.9 - Vitamin D deficiency, unspecified, I10 - Essential (primary) hypertension, K76.0 - Fatty (change of) liver, not elsewhere classified, M35.01 - Sjogren syndrome with keratoconjunctivitis, M85.80 - Other specified disorders of bone density and structure, unspecified site Vitamin D 25-OH Total Today E53.8 - Deficiency of other specified B group vitamins, E55.9 - Vitamin D deficiency, unspecified, I10 - Essential (primary) hypertension, K76.0 - Fatty (change of) liver, not elsewhere classified, M35.01 - Sjogren syndrome with keratoconjunctivitis, M85.80 - Other specified disorders of bone density and structure, unspecified site Patient Instructions: About the SHINE Program The SHINE Program provides free health insurance information, counseling, and assistance to people who are eligible for Medicare and their caregivers. Certified, trained SHINE counselors, who are often volunteers, work with participants to help explore Medicare plan options and uncover ways to save money on both health insurance and prescription drug costs.?? How can a SHINE Counselor help me?? A SHINE counselor will help you:? Understand your Medicare and other health insurance and drug coverage options Find the right coverage for you? Find ways you can save money on your prescription drugs and health insurance? Help you apply for programs that will lower your costs? Provide information to help you make the best coverage selection? Find a ROSMERY counselor ROSMERY Counselors are available to meet in person at the following locations:?? Senior centers?? [facility] Access Point? ROSMERY counselors are also available to meet by telephone. You can find a ROSMERY counselor near you by calling [facility] at , or by exploring the [facility] staff directory. Walk-In Care (Urgent Care): We Make it Easy Walk-in for urgent medical issues such as: ? Seasonal Allergies ? Insect Bites ? Cough ? Diarrhea ? Acute Asthma Attacks ? Back, Knee or Joint Pain ? Ear Infection ? Fever without a Rash ? Headaches ? Nausea ? [place] Eye, Rash or Skin Irritation ? Sore Throat ? Sports Physicals ? Vomiting Most insurances are accepted. Patients do not need to be part of the [facility] to seek care at the walk-in clinic. Locations [facility] , [place] [address] ? [phone] [facility] Walk-In Care in [place] provides services to ages 18 and over. Open Tuesday-Tuesday: 8 a.m. to 5 p.m. and Tuesday: 9 a.m. to 3 p.m.* *Hours may vary due to staffing availability. To confirm Walk-In Care hours in [place], please call [phone]. [address] [place] [address] ? [phone] [facility] Walk-In Care in [place] provides services to ages 12 and over. Open Tuesday-Tuesday: 8 a.m. to 5 p.m. Hours may vary due to staffing availability. To confirm Walk-In Care hours in [place], please call [phone]. LABORATORY SERVICES: [facility] Lab ? Primary Location [address] [place] [address] Tuesday through Tuesday 6:00 AM ? 5:00 PM Tuesday 7:00 AM ? 11:00 AM* [phone] The [facility] Lab is centrally located near the front entrance of the [facility] for easy outpatient access. Convenient parking is provided for outpatients. *Hours may vary due to staffing availability. To confirm Laboratory hours for any location, please call [phone]. Offsite Location For your convenience, we offer offsite laboratory draw stations at the following locations: [address] [facility], [place] [address] [facility] [address], [address], [place] Tuesday through Tuesday 7:30 AM ? 1:00 PM* [phone] *Hours may vary due to staffing availability. To confirm Laboratory hours for any location, please call [phone]. [place] ? [facility] [address] [facility], [place] Tuesday through Tuesday 6:00 AM ? 3:30 PM* Tuesday 6:30 AM ? 3 PM* [phone] *Hours may vary due to staffing availability. To confirm Laboratory hours for any location, please call [phone]. [address] [facility] Tuesday through Tuesday 7:30 AM ? 4:00 PM* [phone] *Hours may vary due to staffing availability. To confirm Laboratory hours for any location, please call [phone] [place] [address] Tuesday through 9:00 AM ? 4:00 PM* *Hours may vary due to staffing availability. To confirm Laboratory hours for any location, please call [phone]. Appointments are not necessary. Walk-ins are welcome. Like all the departments throughout the [facility], our Lab undergoes frequent reviews to ensure the quality and accuracy of test results, and our staff takes special pride in its status as a nationally accredited facility. Patient Portal: ONE PATIENT. ONE RECORD. BETTER CARE. [facility] has a fully integrated, cutting- edge mobile electronic health information system that has revolutionized the way we care for our patients and manage our organization. This system improves communication and coordination enabling us to provide safe, higher-quality care, and an overall positive experience for staff and patients. Our first priority, as always, is to deliver the highest quality care possible. The system is running in the background supporting that priority. This portal is for all [facility] services and practices. If you are experiencing any technical difficulties with enrolling or logging into the Patient Portal please complete the [facility] Patient Portal Technical Support Form. [facility] now offers a new secure on-line interactive tool for patients to review their health information ? Patient Portal. This interactive web portal will enable patients and their families to take an active role in their care by providing easy, secure access to their health information via the internet. The Patient Portal provides patients with instant access to their health information, including laboratory results, medications, allergies, demographic information, visit history, and more. In addition to managing their own care, parents and health care proxies with authorized consent will appreciate the ability to access the records of those individuals for whom they provide care. Please note: if you wish to gain access (Proxy) to another patient?s portal, you will be required to come to the Medical Records Department in person at [facility]. Both the patient giving proxy access and the proxy will need to provide photo identification and complete the appropriate authorization. The Patient Portal also allows track their appointments online. The [facility] Patient Portal also saves patients time by allowing them to submit updates to their demographic and contact information prior to their visits. Portal email notifications will also alert patients to any new activity on their portal, such as test results and new appointments. In order to initially enroll in the [facility] Patient Portal, you will need to enter some required information including the following: ? your [facility] Medical Record number ? your personal home email address ? name ? date of Please note: In order to enroll in the [facility] Patient Portal, we need to have your email address on file in your electronic medical record. The email address needs to be specific for one person (yourself) in order for your Portal enrollment to be successful. You can update your email address in person with our Registration staff when you are registering for a hospital visit. Otherwise, you will need to come to the Health Information Management (Medical Records) Department at [facility]. We are open from Tuesday ? Tuesday from 7:30 a.m. ? 4:30 p.m. You will be required to present a photo id. Once you have successfully enrolled in the Patient Portal, you will receive a one-time user id and password for the Portal, sent to your email address. This will allow you to log into the Patient Portal within 99 hrs and reset your own logon id and password, and define personal security questions. Once your permanent login and password have been set, you can log into the [facility] Patient Portal at any time via the blue button above or from the Portal Logon button on any page of the [facility] website. [facility] encourage all of our patients to enroll in Patient Portal as it presents a valuable opportunity for patients and their families to actively participate in their care and stay healthy Welcome to [facility]. We look forward to working with you.
[2024-05-09 11:28] VITALS: BP 142/76; PULSE 80; RESP 15; O2SAT 96; BMI 32.7
[2024-05-09 12:11] VITALS: BP 124/76
== END 2024-05-09 12:22 | disposition home or self-care (01) ==
PROVIDERS: PCP Nurse Practitioner Family; Visit Provider Nurse Practitioner Family
DX: M85.89 Other specified disorders of bone density and structure, multiple sites (principal); M35.01 Sjogren syndrome with keratoconjunctivitis; J44.9 Chronic obstructive pulmonary disease, unspecified; E66.811 Obesity, class 1; Z68.32 Body mass index [BMI] 32.0-32.9, adult; M79.644 Pain in right finger(s); M25.531 Pain in right wrist; E55.9 Vitamin D deficiency, unspecified; I10 Essential (primary) hypertension; K76.0 Fatty (change of) liver, not elsewhere classified; E53.8 Deficiency of other specified B group vitamins; K59.09 Other constipation

== ENCOUNTER → 2024-05-09 11:15 | Outpatient (BNVA) | payer MEDICARE, SELFPAY | PROVIDERS: PCP Family Medicine; Visit Provider Nurse Practitioner Family | DX: M85.89 Other specified disorders of bone density and structure, multiple sites (principal); M79.644 Pain in right finger(s); M25.531 Pain in right wrist; M35.01 Sjogren syndrome with keratoconjunctivitis; E55.9 Vitamin D deficiency, unspecified; I10 Essential (primary) hypertension; K76.0 Fatty (change of) liver, not elsewhere classified; E53.8 Deficiency of other specified B group vitamins; K59.09 Other constipation; E66.811 Obesity, class 1; Z68.32 Body mass index [BMI] 32.0-32.9, adult; J44.9 Chronic obstructive pulmonary disease, unspecified | CPT/HCPCS: 96127; 99202 ==

== ENCOUNTER 2024-05-09 12:42 | Outpatient (REF) | payer MEDICARE, SELFPAY ==
[2024-05-09 14:26] LABS: Hematocrit 41.1 % (37.0-47.0); Hemoglobin 13.9 g/dl (12.0-16.0); Mean Corpuscular HGB Conc 33.8 g/dl (31.0-35.0); Mean Corpuscular Hemoglobin 32.1 pg (27.0-33.0); Mean Corpuscular Volume 94.9 fL (80.0-98.0); Mean Platelet Volume 10.9 fL (9.4-12.3); Platelet Count 245 X10*3/uL (160-400); Red Blood Count 4.33 X10*6/uL (4.20-5.50); Red Cell Distribution Width 13.6 % (11.0-16.0); White Blood Count 7.6 X10*3/uL (4.8-10.8)
[2024-05-09 14:35] LABS: Estimated Average Glucose 111 mg/dL; Hemoglobin A1C 123.5415 umol/L; Hemoglobin A1c % 5.5 % (<6.0)
[2024-05-09 14:47] LABS: Alanine Aminotransferase 75 U/L (0-31); Albumin Level 4.3 g/dL (3.5-5.0); Alkaline Phosphatase 93 U/L (39-117); Anion Gap 13 (12-20); Aspartate Amino Transferase 93 U/L (5-31); Bilirubin Total 0.8 mg/dL (0.0-1.0); Blood Urea Nitrogen 14 mg/dL (9-16); Carbon Dioxide 24 mmol/L (22-29); Chloride 106 mmol/L (96-108); Estimated Glomerular Filt Rate > 60; Glucose Random 106 mg/dL (60-115); Iron 111 mcg/dL (30-160); Percent Iron Saturation 40 % (15-50); Potassium 4.1 mmol/L (3.3-5.1); Sodium 139 mmol/L (135-145); Total Iron Binding Capacity 281 mcg/dL (228-428); Total Protein 7.7 g/dL (6.5-8.0); Unsaturated Iron Binding 170 ug/dL
[2024-05-09 14:57] LABS: Creatinine Urine 37.57 mg/dL; Microalbumin Urine < 5.0 mg/L
[2024-05-09 15:02] LABS: TSH reflex Free T4 1.21 uIU/mL (0.32-4.0); Vitamin D 25-OH Total 64.6 ng/mL (>30)
[2024-05-11 06:39] LABS: LDL Cholesterol Direct 160 mg/dL (<100)
[2024-05-11 21:04] LABS: Antibody to SS-A Antigen <1.0 NEG AI (<1.0 NEG); Antibody to SS-B Antigen <1.0 NEG AI (<1.0 NEG)
== END 2024-05-09 12:43 | disposition home or self-care (01) ==
LOC: HO.WFDLDS 12:42
PROVIDERS: Visit Provider Nurse Practitioner Family
DX: E53.8 Deficiency of other specified B group vitamins (principal); K76.0 Fatty (change of) liver, not elsewhere classified; I10 Essential (primary) hypertension; M85.80 Other specified disorders of bone density and structure, unspecified site; E55.9 Vitamin D deficiency, unspecified; M35.01 Sjogren syndrome with keratoconjunctivitis
CPT/HCPCS: 36415; 80053; 82306; 82570; 83036; 83540; 83721; 84443; 85027; 86235

== ENCOUNTER 2024-05-17 16:25 | Outpatient (AMB) | payer MEDICARE, SELFPAY ==
--- NOTE | 2024-05-17 08:39 | MHC.PC.OV ---
Intake Visit Reasons: f/u lab results Allergies acetaminophen [From PERCOCET] Allergy (Severe, Verified 05/17/24 16:31) RASH latex Allergy (Severe, Verified 05/17/24 16:31) Rash Medication List - Last Reconciled 05/17/24 by Sanjuana Orourke, [facility]- albuterol sulfate 90 mcg/actuation 2 puffs inhalation Q6H PRN albuterol sulfate mg inhalation amlodipine (Norvasc) 5 mg PO DAILY ascorbic acid (vitamin C) 500 mg PO DAILY cholecalciferol (vitamin D3) 25 mcg PO DAILY docosahexaenoic acid-epa 120-180 mg (Fish Oil) 1 cap PO DAILY linaclotide (Linzess) 290 mcg PO DAILY losartan 100 mg PO DAILY multivitamin 1 tab PO DAILY omeprazole 10 mg PO DAILY Tobacco use date assessed: 05/09/24 Dental Screening Dental Screen Date: 05/09/24 HPI HPI Comments History of Present Illness Details 74 y/o F with arthritis, hypertension, CKD unknown stage, asthma and COPD overlap, osteopenia, Pulmonary nodules, former smoker, GERD, b12 def, seasonal allergies, constipation, fatty liver (CT chest 05/20/21), DJD of spine, fatty liver, hyperlipidemia s/p cholecystectomy, colectomy Specialists Pulm Rheum GI - [facility] Dr Thomas for pain mgmt/rheum Renal - Dr Pinto annual visits Dr Stallworth Chiro Dr Rodney Routine dental Health Maintenance: Mammo declined. DEXA done in the last year Colon has had one done, repeat recommended but not done yet. Pap Tdap unsure, will wait to review PCP records. Flu and COVID vaccines 2023 Telehealth visit today discuss labs as well as x-ray All labs reviewed with her today. LDL is above goal at 160, elevated LFTs otherwise labs are within normal limits. The antibodies for Sjorgens were negative. Therefore this diagnosis we will be removed from her profile. She reports that she is overweight and would like to use a GLP 1 to help her lose weight. X-ray of the right wrist and thumb on 05/15/2024 show no evidence of fracture or dislocation. Joint spaces are fairly well preserved. There is some loss of joint space and subchondral sclerosis in the trapezium scaphoid. No joint effusion. Impression is mild degenerative changes with no evidence of fracture or dislocation She has bought a brace that supports the thumb and wrist better. She was using topical diclofenac. Plan Discuss starting a lipid lowering agent that is not a statin, like Zetia. She reports that she is very sensitive to medications and has side effects. Would like to hold off on any medications at this time and work on diet and lifestyle modifications. The same we will need to be done to improve her elevated liver enzymes. In regards to the GLP 1 I have told her to call her insurance company and find out if they will cover this. She will be switching to [employer] insurance come August, so she will wait until she has a new insurance before calling. I told her to relay the information of coverage to her primary care provider once it is available to her. Continue the supportive brace to your right wrist and topical analgesics. Offered to refer to a hand specialist, declined. Establish care appointment with Dr Gomez was not scheduled when she left the office the other day, I have sent a note to the front office staff to schedule this visit in 4-6 weeks. This note is constructed using voice recognition software. While every effort has been made to ensure accuracy in community reinvestment act officer, still errors may have been included Sometimes, these errors may affect the content or meaning of the given sentence . Total time spent caring for the patient today was 25 minutes. This includes time spent before the visit reviewing the chart, time spent during the visit, and time spent after the visit on documentation [facility] Medical History (Updated 05/17/24 @ 16:30 by Sanjuana Orourke, [facility]) GERD (gastroesophageal reflux disease) RP (rectal prolapse) Hemoptysis Dyspnea Asthma-COPD overlap syndrome Osteopenia Atelectasis Pulmonary nodules Asthma Surgical History (Updated 05/09/24 @ 12:37 by Lalito Ruiz MA) H/O: hysterectomy Hx of cholecystectomy Family History (Updated 05/09/24 @ 12:39 by Lalito Ruiz MA) Mother Asthma HTN (hypertension) Cardiovascular disease Sister Asthma HTN (hypertension) Cancer Paternal Grandmother Colon cancer Social History (Updated 05/09/24 @ 11:28 by Lalito Ruiz MA) Household Members: Spouse Both parents involved: No Caregiver staying overnight: No Housing: Apartment Are you a primary career placement specialist to a significant other at home: No Do you presently have visiting nurse or other home services: No 75 years or older and lives alone: No Alcohol intake: never Patient Tobacco Use Status: Never used Tobacco e-Cigarette/Vaping Use: Never Used service: No Current occupational status: retired Current occupational exposures/hazards: No Cognitive needs: No Hearing needs: Yes Vision needs: Yes (wear glasses) Questionnaire Thrive Questionnaire Date Thrive assessed: 05/09/24 IJEOMA-7 AMB Questionnaire IJEOMA-7 Date IJEOMA - 7 assessed: 05/09/24 Source: Developed by Drs. Malik Thomas, Berenice Ac, Mina Pérez and colleagues, with an educational lexii from [employer]. Physical exam (Primary Care) Tobacco/Smoking Status: Tobacco use Status Tobacco use date assessed 05/09/24 05/17/24 08:40 Patient Tobacco Use Status Never used Tobacco 05/17/24 08:40 Tobacco use type 05/09/24 12:42 e-Cigarette/Vaping Use Never Used 05/17/24 08:40 Thrive Assessment: Date of Thrive Assessment Date Thrive assessed 05/09/24 05/17/24 08:40 Telehealth Telehealth Telehealth Platform: Telephone Location of provider rendering services: practice address Location of patient: address on file Patient Identification confirmed using: Name, : Yes Telehealth method: voice only Patient verbally consented to treatment: Yes Patient verbally consented to billing insurance company: Yes Patient informed of any privacy concerns related to visit: Yes Minutes spent on Phone/Video with Pt.: 18 Coding Level of Care Code Tele Est Pt Level 3 (61771) Complex EM visit Add On G2211 Diagnoses Mixed hyperlipidemia E78.2 Hyperlipidemia type: mixed hyperlipidemia Fatty liver K76.0 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 (2) Fatty liver: Code(s): K76.0 - Fatty (change of) liver, not elsewhere classified Category: Medical Plan: . (3) Osteoarthritis of right wrist: Code(s): M19.031 - Primary osteoarthritis, right wrist Category: Medical Qualifiers: Osteoarthritis type: primary Qualified Code(s): M19.031 - Primary osteoarthritis, right wrist Plan: . Patient Instructions: To reduce low-density lipoprotein (LDL) cholesterol, you can try making lifestyle changes to your diet, exercise, and other habits: Eat a heart-healthy diet Limit saturated and trans fats, and eat more foods with healthy fats, like nuts, seeds, and unsaturated oils. You can also try eating more soluble fiber, which can help reduce the amount of cholesterol your body absorbs. Foods high in soluble fiber include whole grains, fruits, and legumes. Exercise regularly Aim for at least 150 minutes of exercise per week, such as walking, swimming, or cycling. Maintain a healthy weight Losing weight can help lower LDL cholesterol, especially if you are overweight or obese. Manage stress Chronic stress can raise LDL cholesterol, so try to find healthy ways to manage it. Quit smoking Smoking can raise cholesterol and increase the risk of serious health problems. Get enough sleep Aim for 7 to 9 hours of sleep per night. You should also limit foods with cholesterol, which are found in animal products like liver, egg yolks, and whole milk dairy products.
== END 2024-05-17 16:32 | disposition home or self-care (01) ==
LOC: HO.HMCFM 16:25
PROVIDERS: PCP Nurse Practitioner Family; Visit Provider Nurse Practitioner Family
DX: E78.2 Mixed hyperlipidemia (principal); K76.0 Fatty (change of) liver, not elsewhere classified; M19.031 Primary osteoarthritis, right wrist

== ENCOUNTER → 2024-05-17 16:25 | Outpatient (BNVA) | payer MEDICARE, SELFPAY | PROVIDERS: PCP Nurse Practitioner Family; Visit Provider Nurse Practitioner Family ==

== ENCOUNTER 2024-08-22 14:32 | Outpatient (AMB) | payer MEDICARE, SELFPAY ==
[2024-08-22 14:39] VITALS: BP 126/76; PULSE 9; O2SAT 97; BMI 33.4
--- NOTE | 2024-08-22 14:39 | MHC.OFFVIS ---
Vital Signs 08/22/24 14:39 Height 5 ft 8 in Weight 219 lb 8 oz BMI 33.4 BP 126/76 Blood Pressure Location Lt brachial Position Sitting Pulse 9 L Pulse Source Pulse Oximeter Pulse Oximetry (%) 97 Oxygen Delivery Method Room Air Intake Visit Reasons: osteoarthritis Intake Note: Patient presents today for cortisone injections in her thighs. She last saw Dr. Thomas on 07/2023 at [facility]. Allergies acetaminophen [From PERCOCET] Allergy (Severe, Verified 08/22/24 14:42) RASH latex Allergy (Severe, Verified 08/22/24 14:42) Rash HPI HPI osteoarthritis: Details: Last corticosteroid injection for management of bilateral trochanteric bursitis lasted 1 month. Uses walker. Not self medicating. PT in the past caused increase pain. Hx transaminitis on NSAID use in the past. Bilateral knee especially posterior knee pain for the last 2 months. It is hard for her to lose weight because she is not able to exercise because of pain. Tylenol is ineffective. [facility] Medical History (Updated 08/22/24 @ 21:16 by Ab Thomas MD) GERD (gastroesophageal reflux disease) RP (rectal prolapse) Hemoptysis Dyspnea Asthma-COPD overlap syndrome Osteopenia Atelectasis Pulmonary nodules Asthma Surgical History (Updated 05/09/24 @ 12:37 by Lalito Ruiz MA) H/O: hysterectomy Hx of cholecystectomy Family History (Updated 05/09/24 @ 12:39 by Lalito Ruiz MA) Mother Asthma HTN (hypertension) Cardiovascular disease Sister Asthma HTN (hypertension) Cancer Paternal Grandmother Colon cancer Social History (Updated 05/09/24 @ 11:28 by Lalito Ruiz MA) Household Members: Spouse Both parents involved: No Caregiver staying overnight: No Housing: Apartment Are you a primary intensive care nurse to a significant other at home: No Do you presently have visiting nurse or other home services: No 75 years or older and lives alone: No Alcohol intake: never Patient Tobacco Use Status: Never used Tobacco e-Cigarette/Vaping Use: Never Used service: No Current occupational status: retired Current occupational exposures/hazards: No Cognitive needs: No Hearing needs: Yes Vision needs: Yes (wear glasses) Review of Systems Const All systems reviewed & are unremarkable except as noted in HPI and below Physical Exam Vital Signs: Last Vital Signs Pulse 9 L 08/22/24 14:39 BP 126/76 08/22/24 14:39 Pulse Ox 97 08/22/24 14:39 Oxygen Delivery Method Room Air 08/22/24 14:39 BMI result Body Mass Index 33.4 Const Other: General: Comfortable Skin: No lesions seen MSK: Bilateral trochanteric bursa tenderness was found. External rotation of bilateral hips is not full. She has tenderness of bilateral knees along joint line and posteriorly. Knee flexion is limited to 80 degrees left and 90 degrees right. No knee effusion. Office Procedures AMB Joint Injection/Aspiration Joint Injection/Aspiration Details: Bilateral trochanteric bursa Prep: site was prepped using aseptic technique Injected into each site: 40 mg of, Kenalog, with 1 mL of and 1% plain lidocaine Procedure: The patient tolerated the procedure well. Postprocedure protocol was discussed with patient. Coding 83030 - Bilateral Large Joint Procedure code (CPT) selection complete AMB Joint Injection/Aspiration Coding 40215 - Bilateral Large Joint Procedure code (CPT) selection complete Office Meds lidocaine (PF) 10 mg/mL (1 %) injection solution Performing Provider: Ab Thomas MD Performing Location: [facility] Administered by: Ab Thomas MD on 08/22/24 21:12 Dose Route Admin Location Dispensed Lot Number Expiration Date [facility] Multifocal Button Inspector 10 mg Infiltration 2 mL [id number] [employer] Kenalog 40 mg/mL suspension for injection Performing Provider: Ab Thomas MD Performing Location: [facility] Administered by: Ab Thomas MD on 08/22/24 21:12 Dose Route Admin Location Dispensed Lot Number Expiration Date [facility] Multifocal Button Inspector 40 mg intrabursal 1 mL AP [id number] [employer] lidocaine (PF) 10 mg/mL (1 %) injection solution Performing Provider: Ab Thomas MD Performing Location: [facility] Administered by: Ab Thomas MD on 08/22/24 21:12 Dose Route Admin Location Dispensed Lot Number Expiration Date [facility] Multifocal Button Inspector 10 mg Infiltration 2 mL [id number] [employer] Kenalog 40 mg/mL suspension for injection Performing Provider: Ab Thomas MD Performing Location: [facility] Administered by: Ab Thomas MD on 08/22/24 21:12 Dose Route Admin Location Dispensed Lot Number Expiration Date [facility] Multifocal Button Inspector 40 mg intra-articular 1 mL AP [id number] [employer] Assessment & Plan Assessment & Plan (1) Greater trochanteric bursitis of both hips: Comment: Recurrent. Last cortisone injection only provided her 1 month of benefit. PT caused more pain. She has had history of transaminitis when she has used NSAIDs in the past. She agreed to try cortisone injection once more this visit. Code(s): M70.61 - Trochanteric bursitis, right hip; M70.62 - Trochanteric bursitis, left hip Category: Medical Plan: Patient received bilateral trochanteric bursa cortisone injections We discussed importance of weight loss. She has limited with performing exercises due to pain in her lower extremities affecting her gait. I recommended she discuss medication management of weight loss with PCP. (2) Knee pain, bilateral: Comment: Bilateral. Code(s): M25.561 - Pain in right knee; M25.562 - Pain in left knee Category: Medical Qualifiers: Chronicity: chronic Qualified Code(s): M25.561 - Pain in right knee; M25.562 - Pain in left knee; G89.29 - Other chronic pain Plan: Bilateral x-ray knees ordered standing Baseline labs ordered We will consider adding diclofenac gel 1% applied to affected area every 4-6 hours as needed after lab results are reviewed Return to clinic in 2-3 weeks to review results and further management Orders: Orders XR knee LT 2V Today M25.561 - Pain in right knee, M25.562 - Pain in left knee Aspartate Amino Transferase Today M25.561 - Pain in right knee, M25.562 - Pain in left knee Complete Blood Count Auto Diff Today M25.561 - Pain in right knee, M25.562 - Pain in left knee AMB Joint Injection/Aspiration Today M70.61 - Trochanteric bursitis, right hip, M70.62 - Trochanteric bursitis, left hip XR knee RT 2V Today M25.561 - Pain in right knee, M25.562 - Pain in left knee Alanine Aminotransferase Today M25.561 - Pain in right knee, M25.562 - Pain in left knee Creatinine Today M25.561 - Pain in right knee, M25.562 - Pain in left knee AMB Joint Injection/Aspiration Today M70.61 - Trochanteric bursitis, right hip, M70.62 - Trochanteric bursitis, left hip Coding Level of Care Code Est Pt Level 4 (84536) Complex EM visit Add On G2211 Diagnoses Greater trochanteric bursitis of both hips M70.61; M70.62 Chronic pain of both knees M25.561; M25.562; G89.29 Chronicity: chronic CPT Codes Coding - 48038 - Bilateral Large Joint: 43887 - Bilateral Large Joint ([id number]) Coding - 22532 - Bilateral Large Joint: 49566 - Bilateral Large Joint ([id number])
--- OUTSIDE RECORDS SUMMARY | 2024-08-22 16:59 | XMS_ITS | Encounter Summary ---
Author Organization [employer] [facility] Address [address] [place] [address] Care Team Providers Care Lumber Press Operator Name Role Phone Unavailable Primary Care Provider Unavailabl e Encounter Details Date Type Department Care Team (Latest Contact Info) Description 11/13/2018 Abstract [facility] CONVERSIONS Dental, Provider, DDS Social History Tobacco Use Types Packs/Day Years Used Date Smoking Tobacco: Never Assessed Comments Unknown Sex and Gender Information Value Date Recorded Sex Assigned at Not on file Legal Sex Female 5:37 PM EDT Gender Identity Not on file Sexual Orientation Not on file documented as of this encounter Plan of Treatment Not on file documented as of this encounter Visit Diagnoses Not on filedocumented in this encounter
--- OUTSIDE RECORDS SUMMARY | 2024-08-22 16:59 | XMS_ITS | Encounter Summary ---
Author Organization [facility] Address [address] [place] [address] Care Team Providers Care Injection Molding Machine Tender Name Role Phone Lawrence Gary MD Primary Care Provider [phone] Encounter Details Date Type Department Care Team (Late st Contact Info) Description 04/19/2017 Scanned Document [facility] Colorectal Surgery [address] [place] [address] Provider, MD Qasim [address] [place] [address] Social History Tobacco Use Types Packs/Day Years Used Date Smoking Tobacco: Former Alcohol Use Standard Drinks/Week Comments Yes 0 (1 standard drink = 0.6 oz pur e alcohol) Sex and Gender Information Value Date Recorded Sex Assigned at Not on file Gender Identity Not on file Sexual Orientation Not on file documented as of this encounter Plan of Treatment Not on file documented as of this encounter Procedures Procedure Name Priority Date/Time Associated Diagnosis Comments CT ABDOMEN+PELVIS W/CONTRAST Routine 04/19/2017 documented in this encounter Results * CT Abdomen+pelvis w/contrast (04/19/2017) Anatomical Region Laterality Modality Abdomen, Pelvis Computed Tomogra phy External Provider MD CÁRDENAS CT ORDERABLES documented in this encounter Visit Diagnoses Not on filedocumented in this encounter Care Teams Injection Molding Machine Tender Relationship Specialty Start Date End Date Lawrence Gary MD [facility] [place] [address] PCP - General Psychiatry, General 10/18/16 documented as of this encounter
--- OUTSIDE RECORDS SUMMARY | 2024-08-22 16:59 | XMS_ITS | Encounter Summary ---
Author Organization [employer] [facility] Address [address] [place] [address] [place] [address] Care Team Providers Care Misdraw Hand Name Role Phone Unavailable Primary Care Provider Unavailabl e Encounter Details Date Type Department Care Team (Latest Contact Info) Description 04/10/2021 Abstract [facility] CONVERSIONS Dental, Provider, DDS Social [...]
--- OUTSIDE RECORDS SUMMARY | 2024-08-22 16:59 | XMS_ITS | Encounter Summary ---
Author Organization [facility] Address [address] [place] [address] Care Team Providers Care Bottle Packing Machine Cleaner Name Role Phone Lawrence Gary MD Primary Care Provider [phone] Encounter Details Date Type Department Care Team (Late st Contact Info) Description 08/04/2007 Scanned Document [facility] Colorectal Surgery [address] [place] [address] Provider, Qasim, [address] [place] [address] Social History Tobacco Use Types Packs/Day Years Used Date Smoking Tobacco: Never Assessed Sex and Gender Information Value Date Recorded Sex Assigned at Not on file Gender Identity Not on file Sexual Orientation Not on file documented as of this encounter Plan of Treatment Not on file documented as of this encounter Procedures Procedure Name Priority Date/Time Associated Diagnosis Comments US RETROPERITONEAL-COMPLETE Routine 08/04/2007 documented in this encounter Results * US Retroperitoneal-Complete (08/04/2007) Anatomical Region Laterality Modality Abdomen Ultrasound External Provider MD CÁRDENAS US ORDERABLES documented in this encounter Visit Diagnoses Not on filedocumented in this encounter Care Teams Bottle Packing Machine Cleaner Relationship Specialty Start Date End Date Lawrence Gary MD [address] [place] [address] PCP - General Psychiatry, General 10/18/16 documented as of this encounter
--- OUTSIDE RECORDS SUMMARY | 2024-08-22 16:59 | XMS_ITS | Clinical Summary ---
Author Organization [facility] Address [address] [place] [address] Care Team Providers Care Loom Fixer Name Role Phone Lawrence Gary MD Primary Care Provider [phone] Allergies Active Allergy Reactions Criticality Noted Date Comments Gluten GI Intolerance/Nausea/Vomiting High 07/01/2017 Lactose (Mild /Moderate) GI Intolerance/Nausea/Vomiting Medium 07/01/2017 Latex Rash/Dermatitis Medium 11/10/2016 Oxycodone-Acetaminophen GI Intolerance/Nausea/Vomiting Medium 11/10/2016 Medications Medication Sig Dispensed Refills Start Date End Date Status lisinopril-hydrochlo rothiazide (PRINZIDE,ZESTORETIC ) 20-25 MG per tablet Take 1 tablet by mouth daily. 09/20/2016 Active acetaminophen (TYLENOL) 500 MG tablet Take 1 tablet (500 mg total) by mouth 4 times daily (every 6 hours) as needed for mild pain. Active PROAIR HFA 108 (90 Base) MCG/ACT inhaler Inhale 2 puffs as needed. 1 06/20/2017 Active minocycline (MINOCIN) 100 MG capsule take 1 capsule by mouth twice a day for 7 days 0 08/03/2017 Active amLODIPine (NORVASC) 10 MG tablet Take 1 tablet (10 mg total) by mouth daily. 12/30/2021 Active fexofenadine (LUCIA) 180 MG tablet Take 1 tablet (180 mg total) by mouth. Active Linzess 290 MCG Cap capsule 05/07/2022 Active losartan (COZAAR) 100 MG tablet 05/07/2022 Active OMEprazole (PriLOSEC) 20 MG capsule 06/13/2022 Active albuterol (PROVENTIL) (0.083%) 2.5 mg/3 mL nebulizer solutionIndications: Moderate persistent asthma without complication Take 3 mL (2.5 mg total) by nebulization 4 times daily (every 6 hours) as needed for wheezing. 125 mL 5 06/13/2023 Active budesonide-formotero l (SYMBICORT) 80-4.5 MCG/ACT inhalerIndications:M oderate persistent asthma without complication Inhale 2 puffs 2 (two) times a day. 10.2 g 3 06/13/2023 Active spacer for MDI (Aerochamber/Breathe Rite/Ellipse) DeviceIndications:Mo derate persistent asthma without complication Use as instructed 1 each 06/13/2023 Active Active Problems Problem Noted Date Diagnosed Date Sjogren's syndrome 06/13/2023 Moderate persistent asthma without complication 06/29/2022 Pulmonary nodules 06/29/2022 Diverticulitis large intestine 06/27/2017 Diverticulitis of large inte brennon without perforation or abscess without bleeding 06/07/2017 Family History Medical History Relation Name Comments Asthma Brother Colon cancer Brother Heart disease Brother Lung cancer Father Asthma Mother Hypertension Mother Relation Name Status Comments Brother Father Mother Social History Tobacco Use Types Packs/Day Years Used Date Smoking Tobacco: Former Cigarettes 2 5 1 969 - 1973 Smokeless Tobacco: Never Tobacco Cessation:Counseling Given: Not Answered Alcohol Use Standard Drinks/Week Comments Yes 0 (1 standard drink = 0.6 oz pur e alcohol) occasionally Sex and Gender Information Value Date Recorded Sex Assigned at Not on file Gender Identity Not on file Sexual Orientation Not on file Last Filed Vital Signs Vital Sign Reading Time Taken Comments Blood Pressure 110/62 06/29/2022 2:57 PM EST Pulse 82 06/29/2022 2:57 PM EST Temperature 37.1 ??C (98.7 ??F) 06/29/2022 2:57 PM ES T Respiratory Rate 18 08/16/2017 3:38 PM EST Oxygen Saturation 97% 06/29/2022 2:57 PM EST Inhaled Oxygen Concentration - - Weight 96.2 kg (212 lb) 06/29/2022 2:57 PM EST Height 172.7 cm (5' 8 ) 06/29/2022 2:57 PM EST Body Mass Index 32.23 06/29/2022 2:57 PM EST Plan of Treatment Health Maintenance Due Date Last Done Comments Hepatitis C Virus Screening 1950 DTaP/Tdap/Td Vaccines (1 - Tdap) 1969 Pneumococcal Vaccines 50+ (1 of 2 - PCV) 1969 Mammogram 1990 Zoster (Shingles) Vaccine (1 of 2) 2000 RSV Vaccine 60 years and older and Patients (1 - Risk 60-74 years 1-dose series) 2010 DXA Bone Density (Females,Ages 65 and older) 2015 Influenza Vaccine 03/01/2024 05/15/2007 COVID-19 Vaccine ( - 2023-2 5 season) 2024 Colonoscopy 06/27/2027 06/27/2017, 02/07/2014 Hepatitis B Vaccines Aged Out No long er eligible based on patient's age to complete this topic Procedures Procedure Name Priority Date/Time Associated Diagnosis Comments HX GASTROENTEROLOGY COLONOSCOPY-SCAN 02/07/2014 from Last 3 Months or Most Recently Relevant to Health Maintenance Results * HX GASTROENTEROLOGY COLONOSCOPY-SCAN (02/07/2014) Narrative 02/07/2014 Ordered by an unspecified provider. Generic Provider HX AMB PROCEDURES from Last 3 Months or Most Recently Relevant to Health Maintenance Advance Directives Documents on File Type Date Recorded Patient Hose Seamer Expl anation Advance Directive-Scan 06/07/2017 * Full Code (Latest Code Status on File) Date Activated Date Inactivated Comments 06/27/2017 5:44 PM * Full Code Date Activated Date Inactivated Comments 06/27/2017 8:25 AM 06/27/2017 5:44 PM Care Teams Loom Fixer Relationship Specialty Start Date End Date Lawrence Gary MD [address] [place] [address] PCP - General Psychiatry, General 10/18/16
--- OUTSIDE RECORDS SUMMARY | 2024-08-22 16:59 | XMS_ITS | Encounter Summary ---
Author Organization [facility] Address [address] [place] [address] Care Team Providers Care Strategic Debriefing Officer Name Role Phone Lawrence Gary MD Primary Care Provider [phone] Encounter Details Date Type Department Care Team (Late st Contact Info) Description 10/11/2016 Scanned Document [address] [place] [phone] Provider, Generic Social History Tobacco Use Types Packs/Day Years Used Date Smoking Tobacco: Never Assessed Sex and Gender Information Value Date Recorded Sex Assigned at Not on file Gender Identity Not on file Sexual Orientation Not on file documented as of this encounter Plan of Treatment Not on file documented as of this encounter Procedures Procedure Name Priority Date/Time Associated Diagnosis Comments ULTRASOUND EXTERNAL RESULT 10/11/2016 documented in this encounter Results * ULTRASOUND EXTERNAL RESULT (10/11/2016) Anatomical Region Laterality Modality Ultrasound Narrative 10/11/2016 Ordered by an unspecified provider. Generic Provider IMG US ORDERABLES documented in this encounter Visit Diagnoses Not on filedocumented in this encounter Care Teams Strategic Debriefing Officer Relationship Specialty Start Date End Date Lawrence Gary MD [address] [place] [address] PCP - General Psychiatry, General 10/18/16 documented as of this encounter
--- OUTSIDE RECORDS SUMMARY | 2024-08-22 16:59 | XMS_ITS | Encounter Summary ---
Author Organization [facility] Address [address] [place] [address] Care Team Providers Care Reconstructive Dentist Name Role Phone Lawrence Gary MD Primary Care Provider [phone] Encounter Details Date Type Department Care Team (Late st Contact Info) Description 10/19/2000 Scanned Document [facility] Colorectal Surgery [address] [place] [address] Provider, Qasim, [address] [place] [address] Social History Tobacco Use Types Packs/Day Years Used Date Smoking Tobacco: Never Assessed Sex and Gender Information Value Date Recorded Sex Assigned at Not on file Gender Identity Not on file Sexual Orientation Not on file documented as of this encounter Plan of Treatment Not on file documented as of this encounter Procedures Procedure Name Priority Date/Time Associated Diagnosis Comments REMOVE DRAINS/TUBES Routine 10/19/2000 documented in this encounter Results * Remove drains / tubes (10/19/2000) External Provider NURSING TREATMENT O RDERABLES - ONCE documented in this encounter Visit Diagnoses Not on filedocumented in this encounter Care Teams Reconstructive Dentist Relationship Specialty Start Date End Date Lawrence Gary MD [address] [place] [address] PCP - General Psychiatry, General 10/18/16 documented as of this encounter
--- OUTSIDE RECORDS SUMMARY | 2024-08-22 16:59 | XMS_ITS | Encounter Summary ---
Author Organization [facility] Address [address] [place] [address] Care Team Providers Care Pets Salesperson Name Role Phone Lawrence Gary MD Primary Care Provider [phone] Encounter Details Date Type Department Care Team (Late st Contact Info) Description 10/21/2000 Scanned Document [facility] Colorectal Surgery [address] [place] [address] Provider, MD Qasim [address] [place] [address] Social History Tobacco Use Types Packs/Day Years Used Date Smoking Tobacco: Never Assessed Sex and Gender Information Value Date Recorded Sex Assigned at Not on file Gender Identity Not on file Sexual Orientation Not on file documented as of this encounter Plan of Treatment Not on file documented as of this encounter Visit Diagnoses Not on filedocumented in this encounter Care Teams Pets Salesperson Relationship Specialty Start Date End Date Lawrence Gary MD [address] [place] [address] PCP - General Psychiatry, General 10/18/16 documented as of this encounter
--- OUTSIDE RECORDS SUMMARY | 2024-08-22 16:59 | XMS_ITS | Encounter Summary ---
Author Organization [facility] Address [address] [place] [address] Care Team Providers Care Fish And Wildlife Warden Name Role Phone Lawrence Gary MD Primary Care Provider [phone] Encounter Details Date Type Department Care Team (Late st Contact Info) Description 04/21/2022 Scanned Document [facility] Pulmonary [address] [place] [phone] Pulmonary, Scan Social History Tobacco Use Types Packs/Day Years Used Date Smoking Tobacco: Former Cigarettes 2 5 1 969 - 4681 Smokeless Tobacco: Never Alcohol Use Standard Drinks/Week Comments Yes 0 [...] on filedocumented in this encounter Care Teams Fish And Wildlife Warden Relationship Specialty Start Date End Date Lawrence Gary MD [address] [place] [address] PCP - General Psychiatry, General 10/18/16 documented as of this encounter
--- OUTSIDE RECORDS SUMMARY | 2024-08-22 16:59 | XMS_ITS | Encounter Summary ---
Author Organization [facility] Address [address] [place] [address] Care Team Providers Care Welding Machine Operator Electro Gas Name Role Phone Lawrence Gary MD Primary Care Provider [phone] Encounter Details Date Type Department Care Team (Late st Contact Info) Description 07/06/2006 Scanned Document [address] [place] [phone] Provider, Generic Social History Tobacco Use Types [...] on filedocumented in this encounter Care Teams Welding Machine Operator Electro Gas Relationship Specialty Start Date End Date Lawrence Gary MD [address] [place] [address] PCP - General Psychiatry, General 10/18/16 documented as of this encounter
--- OUTSIDE RECORDS SUMMARY | 2024-08-22 16:59 | XMS_ITS | Encounter Summary ---
Author Organization [facility] Address [address] [place] [address] Care Team Providers Care Tube Draw Helper Name Role Phone Lawrence Gary MD Primary Care Provider [phone] Encounter Details Date Type Department Care Team (Late st Contact Info) Description 08/24/2016 Scanned Document [address] [place] [phone] Provider, Generic Social History Tobacco Use Types Packs/Day Years Used Date Smoking Tobacco: Never Assessed Sex and Gender Information Value Date Recorded Sex Assigned at Not on file Gender Identity Not on file Sexual Orientation Not on file documented as of this encounter Plan of Treatment Not on file documented as of this encounter Procedures Procedure Name Priority Date/Time Associated Diagnosis Comments ECHOCARDIOGRAM-SCAN 08/25/2016 documented in this encounter Results * ECHOCARDIOGRAM-SCAN (08/25/2016) Anatomical Region Laterality Modality Other Narrative 08/25/2016 Ordered by an unspecified provider. Generic Provider HX AMB PROCEDURES documented in this encounter Visit Diagnoses Not on filedocumented in this encounter Care Teams Tube Draw Helper Relationship Specialty Start Date End Date Lawrence Gary MD [address] [place] [address] PCP - General Psychiatry, General 10/18/16 documented as of this encounter
--- OUTSIDE RECORDS SUMMARY | 2024-08-22 16:59 | XMS_ITS | Encounter Summary ---
Author Organization [facility] Address [address] [place] [address] Care Team Providers Care Auto Repair Technician Name Role Phone Lawrence Gary MD Primary Care Provider [phone] Encounter Details Date Type Department Care Team (Late st Contact Info) Description 2017 Scanned Document [facility] Colorectal Surgery [address] [place] [address] Lawrence Gary MD [address] [place] [phone] Social History Tobacco Use Types Packs/Day Years [...] on filedocumented in this encounter Care Teams Auto Repair Technician Relationship Specialty Start Date End Date Lawrence Gary MD [address] [place] [address] PCP - General Psychiatry, General 10/18/16 documented as of this encounter
--- OUTSIDE RECORDS SUMMARY | 2024-08-22 16:59 | XMS_ITS | Clinical Summary ---
Author Organization [facility] Address [address] [place] [address] Phone Care Team Providers Care Drug Safety Coordinator Name Role Phone Duran Gomez MD Primary Care Provider Allergies Active Allergy Reactions Criticality Noted Date Comments Gluten Meal Nausea And Vomiting High 07/01/2017 Lactose Intolerance (Gi) Nausea And Vomiting Medium Latex Rash Medium 11/10/2016 Oxycodone-Acetaminophen Nausea And Vomiting Medium 07/2017 Medications acetaminophen (TYLENOL) 500 MG tablet Take 500 mg by mouth every 6 (six) hours if needed Active cholecalciferol (VITAMIN D-3) 50 MCG (1999 UT) capsule Take by mouth 1 (one) time each day 09/16/2020 Active linaCLOtide (Linzess) 290 MCG capsule Take 1 capsule by mouth 1 (one) time each day Active omeprazole (PriLOSEC) [address] capsule Take 40 mg by mouth 1 (one) time each day 09/30/2020 Active sucralfate (CARAFATE) 1 GM/10ML suspension 10/15/2020 Active ibuprofen (IBU) 600 MG tablet Take 600 mg by mouth every 6 (six) hours if needed for mild pain Active diphenhydrAMINE HCl, Sleep, 25 MG tablet dispersible Take by mouth Active Fish Oil-Cholecalcife rol ([employer] FISH OIL + D3 PO) Take by mouth Active losartan (COZAAR) 100 MG tablet TAKE 1 TABLET ONCE DAILY 90 tablet 3 02/10/2024 Active amLODIPine (NORVASC) 5 MG tablet Take 1 tablet (5 mg total) by mouth 1 (one) time each day 90 tablet 3 03/07/2024 Active Active Problems Problem Noted Date Diagnosed Date Hypertension 11/20/2020 Hypertensive heart and renal disease with (congestive) heart failure 11/20/2020 Vitamin D deficiency 11/20/2020 Diverticulitis of large intestine 06/07/2017 Immunizations Name Administration Dates Next Due Influenza Split High Dose Preservative Free IM 1 08/01/2019 Family History Medical History Relation Comments Cancer Father Heart disease Mother Hypertension Mother Heart disease Sibling 1 Hypertension Sibling 2 Relation Status Comments Father Mother Alive Sibling 1 Sibling 2 Social History Tobacco Use Types Packs/Day Years Used Date Smoking Tobacco: Never Smokeless Tobacco: Never Tobacco Cessation:Counseling Given: No Alcohol Use Standard Drinks/Week Comments Yes 0 (1 standard drink = 0.6 oz pure alcohol) Alcoholic Drinks/day: Occasional social drink Comments Unknown Sex and Gender Information Value Date Recorded Sex Assigned at Not on file Legal Sex Female 5:04 PM EST Gender Identity Not on file Sexual Orientation Not on file Last Filed Vital Signs Vital Sign Reading Time Taken Comments Blood Pressure 126/75 12/29/2023 3:55 PM EDT Pulse 75 12/29/2023 3:55 PM EDT Temperature - - Respiratory Rate - - Oxygen Saturation 97% 09/21/2019 12:00 PM EST Inhaled Oxygen Concentration - - Weight 93.9 kg (207 lb) 12/29/2023 3:55 PM EDT Height 172.7 cm (5' 8 ) 12/08/2020 10:03 AM EDT Body Mass Index 31.47 12/08/2020 10:03 AM EDT Plan of Treatment Upcoming Encounters Date Type Department Care Team (Late st Contact Info) Description 12/06/2024 2:15 PM EDT Office Visit [facility] [address] [place] [address] Jude Pinto MD [address] [phone] Health Maintenance Due Date Last Done Comments Breast Cancer Screening 1950 Pneumococcal Vaccine: 65+ Ye ars (1 of 2 - PCV) 1956 Colorectal Cancer Screening: Annual FOBT 1999 Colorectal Cancer Screening: Colonoscopy 1999 Colorectal Cancer Screening: Sigmoidoscopy 1999 Influenza Vaccine (#1) 2024 06/01/2020 Hepatitis B Vaccine Aged Out No longe r eligible based on patient's age to complete this topic [facility] Care Teams Drug Safety Coordinator Relationship Specialty Start Date End Date Duran Gomez MD [address] [place] [id number] PCP - General Family Medicine 12/29/23
--- OUTSIDE RECORDS SUMMARY | 2024-08-22 16:59 | XMS_ITS | Encounter Summary ---
Author Organization [facility] Address [address] [place] [address] Care Team Providers Care Cap Machine Operator Name Role Phone Lawrence Gary MD Primary Care Provider [phone] Encounter Details Date Type Department Care Team (Late st Contact Info) Description 08/23/2000 Scanned Document [facility] Colorectal Surgery [address] [place] [address] Provider, Qasim, [address] [place] [address] Social History Tobacco Use Types Packs/Day Years Used Date Smoking Tobacco: Never Assessed Sex and Gender Information Value Date Recorded Sex Assigned at Not on file Gender Identity Not on file Sexual Orientation Not on file documented as of this encounter Plan of Treatment Not on file documented as of this encounter Procedures Procedure Name Priority Date/Time Associated Diagnosis Comments DRAIN WOUND Routine 08/23/2000 documented in this encounter Results * DRAIN WOUND (08/23/2000) External Provider MD HOFF ORDERABLE PERFO RMABLE documented in this encounter Visit Diagnoses Not on filedocumented in this encounter Care Teams Cap Machine Operator Relationship Specialty Start Date End Date Lawrence Gary MD [address] [place] [address] PCP - General Psychiatry, General 10/18/16 documented as of this encounter
--- OUTSIDE RECORDS SUMMARY | 2024-08-22 16:59 | XMS_ITS | Encounter Summary ---
Author Organization [facility] Address [address] [place] [address] Care Team Providers Care Meat Grading Machine Operator Name Role Phone Lawrence Gary MD Primary Care Provider Encounter Details Date Type Department Care Team (Late st Contact Info) Description 02/07/2014 Scanned Document [address] [place] [phone] Provider, Generic Social History Tobacco Use Types [...] Priority Date/Time Associated Diagnosis Comments HX GASTROENTEROLOGY UPPER ENDOSCOPY-SCAN 02/07/2014 HX GASTROENTEROLOGY COLONOSCOPY-SCAN 02/07/2014 documented in this encounter Results * HX GASTROENTEROLOGY UPPER ENDOSCOPY-SCAN (02/07/2014) Narrative 02/07/2014 Ordered by an unspecified provider. Generic Provider HX AMB PROCEDURES * HX GASTROENTEROLOGY COLONOSCOPY-SCAN (02/07/2014) Narrative 02/07/2014 Ordered by an unspecified provider. Generic Provider HX AMB PROCEDURES documented in this encounter Visit Diagnoses Not on filedocumented in this encounter Care Teams Meat Grading Machine Operator Relationship Specialty Start Date End Date Lawrence Gary MD [address] [place] [address] PCP - General Psychiatry, General 10/18/16 documented as of this encounter
--- OUTSIDE RECORDS SUMMARY | 2024-08-22 16:59 | XMS_ITS | Clinical Summary ---
Author Organization [employer] Address [address] [facility] [address] [place] [address] Care Team Providers Care Consulting Services Manager Name Role Phone Unavailable Primary Care Provider Unavailabl e Social History Tobacco Use Types Packs/Day Years Used Date Smoking Tobacco: Never Assessed Comments Unknown Sex and Gender Information Value Date Recorded Sex Assigned at Not on file Legal Sex Female 5:37 PM EDT Gender Identity Not on file Sexual Orientation Not on file Plan of Treatment Health Maintenance Due Date Last Done Comments CT Colonography 1950 Colonoscopy 1950 Colorectal Cancer Screening 1950 Depression Screening 1950 FIT DNA/Cologuard 1950 FIT 1950 FOBT 1950 Sigmoidoscopy 1950 Alcohol/Substance Use Screening 1962 Tobacco Screening 1962 DTaP/Tdap/Td Vaccines (1 - Tdap) 1969 Mammogram 1990 Zoster Vaccines (1 of 2) 2000 Pneumococcal Vaccine: 65+ Ye ars (1 of 1 - PCV) 2015 COVID-19 Vaccine ( - 2023-2 5 season) 2024 Influenza Vaccine (#1) 2024 RSV Patients and Pa tients Aged 60 years or older (1 - 1-dose 75+ series) 2025 HIB Vaccines Aged Out No longer eligi ble based on patient's age to complete this topic HPV Vaccines Aged Out No longer eligi ble based on patient's age to complete this topic Hepatitis A Vaccines Aged Out No long er eligible based on patient's age to complete this topic Hepatitis B Vaccines Aged Out No long er eligible based on patient's age to complete this topic IPV Vaccines Aged Out No longer eligi ble based on patient's age to complete this topic Meningococcal Vaccine Aged Out No jean pierre epifanio eligible based on patient's age to complete this topic RSV under 20 months Aged Out No longe r eligible based on patient's age to complete this topic Rotavirus Vaccines Aged Out No longer eligible based on patient's age to complete this topic
--- OUTSIDE RECORDS SUMMARY | 2024-08-22 16:59 | XMS_ITS | Encounter Summary ---
Author Organization [facility] Address [address] [place] [address] Care Team Providers Care Clipper Operator Name Role Phone Lawrence Gary MD Primary Care Provider [phone] Encounter Details Date Type Department Care Team (Late st Contact Info) Description 07/09/2014 Scanned Document [address] [place] [phone] Provider, Generic Social History Tobacco Use Types [...] Date/Time Associated Diagnosis Comments ULTRASOUND EXTERNAL RESULT 07/09/2014 documented in this encounter Results * ULTRASOUND EXTERNAL RESULT (07/09/2014) Anatomical Region Laterality Modality Ultrasound Narrative 07/09/2014 Ordered by an unspecified provider. Generic Provider IMG US ORDERABLES documented in this encounter Visit Diagnoses Not on filedocumented in this encounter Care Teams Clipper Operator Relationship Specialty Start Date End Date Lawrence Gary MD [address] [place] [address] PCP - General Psychiatry, General 10/18/16 documented as of this encounter
--- OUTSIDE RECORDS SUMMARY | 2024-08-22 16:59 | XMS_ITS | Encounter Summary ---
Author Organization [facility] Address [address] [place] [address] Care Team Providers Care Adjunct Lecturer Name Role Phone Lawrence Gary MD Primary Care Provider [phone] Encounter Details Date Type Department Care Team (Late st Contact Info) Description 10/25/2023 Scanned Document [facility] Pulmonary [address] [place] [phone] Pulmonary, Scan Social History Tobacco Use Types Packs/Day Years Used Date Smoking Tobacco: Former Cigarettes 2 5 1 969 - 1974 Smokeless Tobacco: Never Alcohol Use Standard Drinks/Week [...] on filedocumented in this encounter Care Teams Adjunct Lecturer Relationship Specialty Start Date End Date Lawrence Gary MD [address] [place] [address] PCP - General Psychiatry, General 10/18/16 documented as of this encounter
== END 2024-08-22 15:24 | disposition home or self-care (01) ==
PROVIDERS: PCP Nurse Practitioner Family; Visit Provider Internal Medicine Rheumatology
DX: M70.61 Trochanteric bursitis, right hip (principal); M70.62 Trochanteric bursitis, left hip; M25.561 Pain in right knee; M25.562 Pain in left knee; G89.29 Other chronic pain
CPT/HCPCS: 20610; 99214; G2211

== ENCOUNTER 2024-08-22 14:32 | Outpatient (REF) | payer MEDICARE, SELFPAY ==
[2024-08-22 17:42] LABS: MANUAL DIFF FLAG NO
--- OUTSIDE RECORDS SUMMARY | 2024-08-22 17:45 | XMS_ITS | Encounter Summary ---
Author Organization [facility] Address [address] [place] [address] Care Team Providers Care Algorithm Design Engineer Name Role Phone Lawrence Gary MD Primary Care Provider [phone] Encounter Details Date Type Department Care Team (Late st Contact Info) Description 10/25/2023 Scanned Document [facility] Pulmonary [address] [place] [phone] Pulmonary, Scan Social History Tobacco Use Types [...] on filedocumented in this encounter Care Teams Algorithm Design Engineer Relationship Specialty Start Date End Date Lawrence Gary MD [address] [place] [address] PCP - General Psychiatry, General 10/18/16 documented as of this encounter
--- OUTSIDE RECORDS SUMMARY | 2024-08-22 17:45 | XMS_ITS | Encounter Summary ---
Author Organization [facility] Address [address] [place] [address] [place] [address] Care Team Providers Care Passenger Agent Name Role Phone Unavailable Primary Care Provider [...]
--- OUTSIDE RECORDS SUMMARY | 2024-08-22 17:45 | XMS_ITS | Encounter Summary ---
Author Organization [facility] Address [address] [place] [address] Care Team Providers Care Hot Stamp Operator Name Role Phone Lawrence Gary MD Primary Care Provider [phone] Encounter Details Date Type Department Care Team (Late st Contact Info) Description 10/19/2000 Scanned Document [facility] Colorectal Surgery [address] [place] [address] Provider, Qasim, [address] [place] [address] Social History Tobacco Use Types Packs/Day Years [...] on filedocumented in this encounter Care Teams Hot Stamp Operator Relationship Specialty Start Date End Date Lawrence Gary MD [address] [place] [address] PCP - General Psychiatry, General 10/18/16 documented as of this encounter
--- OUTSIDE RECORDS SUMMARY | 2024-08-22 17:45 | XMS_ITS | Encounter Summary ---
Author Organization [facility] Address [address] [place] [address] Care Team Providers Care Plowing Gardens Name Role Phone Lawrence Gary MD Primary Care Provider [phone] Encounter Details Date Type Department Care Team (Late st Contact Info) Description 08/23/2000 Scanned Document [facility] Colorectal Surgery [address] [place] [address] Provider, Qasim, [address] [place] [address] Social History Tobacco Use Types Packs/Day Years [...] on filedocumented in this encounter Care Teams Plowing Gardens Relationship Specialty Start Date End Date Lawrence Gary MD [address] [place] [address] PCP - General Psychiatry, General 10/18/16 documented as of this encounter
--- OUTSIDE RECORDS SUMMARY | 2024-08-22 17:45 | XMS_ITS | Encounter Summary ---
Author Organization [facility] Address [address] [place] [address] Care Team Providers Care Preformer Impregnated Fabrics Name Role Phone Lawrence Gary MD Primary Care Provider [phone] Encounter Details Date Type Department Care Team (Late st Contact Info) Description 10/11/2016 Scanned Document [address] [place] [phone] Provider, Generic Social History Tobacco Use Types [...] on filedocumented in this encounter Care Teams Preformer Impregnated Fabrics Relationship Specialty Start Date End Date Lawrence Gary MD [address] [place] [address] PCP - General Psychiatry, General 10/18/16 documented as of this encounter
--- OUTSIDE RECORDS SUMMARY | 2024-08-22 17:45 | XMS_ITS | Clinical Summary ---
Author Organization [facility] Address [address] [place] [address] Phone Care Team Providers Care Lockstitch Zipper Setter Name Role Phone Duarn Gomez MD Primary Care Provider Allergies Active [...] Visit [facility] [address] [place] [address] Jude Pinto MD [address] [phone] Health Maintenance Due Date Last Done Comments Breast Cancer Screening 1950 Pneumococcal Vaccine: 65+ Ye ars (1 of 2 - PCV) 1956 Colorectal Cancer Screening: Annual FOBT 1999 Colorectal Cancer Screening: Colonoscopy 1999 Colorectal Cancer Screening: Sigmoidoscopy 1999 Influenza Vaccine (#1) 2024 06/01/2020 Hepatitis B Vaccine Aged Out No longe r eligible based on patient's age to complete this topic Insurance [facility] Care Teams Lockstitch Zipper Setter Relationship Specialty Start Date End Date Duran Gomez MD [address] [place] [address] PCP - General Family Medicine 12/29/23
--- OUTSIDE RECORDS SUMMARY | 2024-08-22 17:45 | XMS_ITS | Encounter Summary ---
Author Organization [facility] Address [address] [place] [address] Care Team Providers Care Corporate Intern Name Role Phone Lawrence Gary MD Primary Care Provider [phone] Encounter Details Date Type Department Care Team (Late st Contact Info) Description 04/21/2022 Scanned Document [facility] Pulmonary [address] [place] [phone] Pulmonary, Scan Social History Tobacco Use Types Packs/Day Years Used Date Smoking Tobacco: Former Cigarettes 2 5 1 969 - 1859 Smokeless Tobacco: Never Alcohol Use Standard Drinks/Week [...] on filedocumented in this encounter Care Teams Corporate Intern Relationship Specialty Start Date End Date Lawrence Gary MD [address] [place] [address] PCP - General Psychiatry, General 10/18/16 documented as of this encounter
--- OUTSIDE RECORDS SUMMARY | 2024-08-22 17:45 | XMS_ITS | Clinical Summary ---
Author Organization [employer] Address [address] [facility] 7[address] [place] [address] Care Team Providers Care Central Office Repairer Name Role Phone Unavailable Primary Care Provider [...]
--- OUTSIDE RECORDS SUMMARY | 2024-08-22 17:45 | XMS_ITS | Encounter Summary ---
Author Organization [facility] Address [address] [place] [address] Care Team Providers Care Tutoring Clinician Name Role Phone Lawrence Gary MD Primary Care Provider [phone] Encounter Details Date Type Department Care Team (Late st Contact Info) Description 07/09/2014 Scanned Document [address] [place] [phone] Provider, Generic Social History Tobacco Use Types [...] on filedocumented in this encounter Care Teams Tutoring Clinician Relationship Specialty Start Date End Date Lawrence Gary MD [address] [place] [address] PCP - General Psychiatry, General 10/18/16 documented as of this encounter
--- OUTSIDE RECORDS SUMMARY | 2024-08-22 17:45 | XMS_ITS | Encounter Summary ---
Author Organization [facility] Address [address] [place] [address] Care Team Providers Care Building Superintendent Name Role Phone Lawrence Gary MD Primary Care Provider [phone] Encounter Details Date Type Department Care Team (Late st Contact Info) Description 08/04/2007 Scanned Document [facility] Colorectal Surgery [address] [place] [address] Provider, Qasim, [address] [place] [address] Social History Tobacco Use Types Packs/Day Years [...] on filedocumented in this encounter Care Teams Building Superintendent Relationship Specialty Start Date End Date Lawrence Gary MD [address] [place] [address] PCP - General Psychiatry, General 10/18/16 documented as of this encounter
--- OUTSIDE RECORDS SUMMARY | 2024-08-22 17:45 | XMS_ITS | Clinical Summary ---
Author Organization [facility] Address [address] [place] [address] Care Team Providers Care Screen Printing Stencil Preparer Name Role Phone Lawrence Gary MD Primary Care Provider [phone] Allergies Active Allergy Reactions Criticality Noted Date [...] Documents on File Type Date Recorded Patient Scenic Designer Expl anation Advance Directive-Scan 06/07/2017 * Full Code (Latest Code Status on File) Date Activated Date Inactivated Comments 06/27/2017 5:44 PM * Full Code Date Activated Date Inactivated Comments 06/27/2017 8:25 AM 06/27/2017 5:44 PM Care Teams Screen Printing Stencil Preparer Relationship Specialty Start Date End Date Lawrence Gary MD [address] [place] [address] PCP - General Psychiatry, General 10/18/16
--- OUTSIDE RECORDS SUMMARY | 2024-08-22 17:45 | XMS_ITS | Encounter Summary ---
Author Organization [facility] Address [address] [place] [address] Care Team Providers Care Horticultural Farm Manager Name Role Phone Lawrence Gary MD Primary Care Provider [phone] Encounter Details Date Type Department Care Team (Late st Contact Info) Description 04/19/2017 Scanned Document [facility] Colorectal Surgery [address] [place] [address] Provider, MD Qasim [address] [place] [address] Social History Tobacco Use Types Packs/Day Years [...] on filedocumented in this encounter Care Teams Horticultural Farm Manager Relationship Specialty Start Date End Date Lawrence Gary MD [facility] [place] [address] PCP - General Psychiatry, General 10/18/16 documented as of this encounter
--- OUTSIDE RECORDS SUMMARY | 2024-08-22 17:45 | XMS_ITS | Encounter Summary ---
Author Organization [facility] Address [address] [place] [address] Care Team Providers Care Vacuum Plastic Forming Machine Operator Name Role Phone Lawrence Gary MD Primary Care Provider [phone] Encounter Details Date Type Department Care Team (Late st Contact Info) Description 10/21/2000 Scanned Document [facility] Colorectal Surgery [address] [place] [address] Provider, MD Qasim [address] [place] [address] Social History Tobacco Use Types Packs/Day Years Used Date Smoking Tobacco: Never Assessed Sex and Gender Information Value Date Recorded Sex Assigned at Not on file Gender Identity Not on file Sexual Orientation Not on file documented as of this encounter Plan of Treatment Not on file documented as of this encounter Visit Diagnoses Not on filedocumented in this encounter Care Teams Vacuum Plastic Forming Machine Operator Relationship Specialty Start Date End Date Lawrence Gary MD [address] [place] [address] PCP - General Psychiatry, General 10/18/16 documented as of this encounter
--- OUTSIDE RECORDS SUMMARY | 2024-08-22 17:45 | XMS_ITS | Encounter Summary ---
Author Organization [facility] Address [address] [place] [address] Care Team Providers Care Control And Recovery Special Tactics Name Role Phone Lawrence Gary MD Primary Care Provider Encounter Details Date Type Department Care Team (Late st Contact Info) Description 02/07/2014 Scanned Document [address] [place] [phone] Provider, Generic Social History Tobacco Use Types [...] on filedocumented in this encounter Care Teams Control And Recovery Special Tactics Relationship Specialty Start Date End Date Lawrence Gary MD [address] [place] [address] PCP - General Psychiatry, General 10/18/16 documented as of this encounter
--- OUTSIDE RECORDS SUMMARY | 2024-08-22 17:45 | XMS_ITS | Encounter Summary ---
Author Organization [facility] Address [address] [place] [address] Care Team Providers Care Customer Marketing Intern Name Role Phone Lawrence Gary MD Primary Care Provider Encounter Details Date Type Department Care Team (Late st Contact Info) Description 08/24/2016 Scanned Document [address] [place] [phone] Provider, Generic Social History Tobacco Use Types [...] on filedocumented in this encounter Care Teams Customer Marketing Intern Relationship Specialty Start Date End Date Lawrence Gary MD [address] [place] [address] PCP - General Psychiatry, General 10/18/16 documented as of this encounter
--- OUTSIDE RECORDS SUMMARY | 2024-08-22 17:45 | XMS_ITS | Encounter Summary ---
Author Organization [facility] Address [address] [facility] 7 [place] [address] Care Team Providers Care Seal Delivery Vehicle Officer Name Role Phone Unavailable Primary Care Provider [...]
--- OUTSIDE RECORDS SUMMARY | 2024-08-22 17:45 | XMS_ITS | Encounter Summary ---
Author Organization [facility] Address [address] [place] [address] Care Team Providers Care Car Shifter Name Role Phone Lawrence Gary MD Primary Care Provider [phone] Encounter Details Date Type Department Care Team (Late st Contact Info) Description 2017 Scanned Document [facility] Colorectal Surgery [address] [place] [address] Lawrence Gary MD [address] [place] [address] Social History Tobacco Use Types Packs/Day Years [...] on filedocumented in this encounter Care Teams Car Shifter Relationship Specialty Start Date End Date Lawrence Gary MD [address] [place] [address] PCP - General Psychiatry, General 10/18/16 documented as of this encounter
--- OUTSIDE RECORDS SUMMARY | 2024-08-22 17:45 | XMS_ITS | Encounter Summary ---
Author Organization [facility] Address [address] [place] [address] Care Team Providers Care Trampoline Team Coach Name Role Phone Lawrence Gary MD Primary Care Provider [phone] Encounter Details Date Type Department Care Team (Late st Contact Info) Description 07/06/2006 Scanned Document [address] [place] [phone] Provider, Generic Social History Tobacco Use Types [...] on filedocumented in this encounter Care Teams Trampoline Team Coach Relationship Specialty Start Date End Date Lawrence Gary MD [address] [place] [address] PCP - General Psychiatry, General 10/18/16 documented as of this encounter
--- OUTSIDE RECORDS SUMMARY | 2024-08-22 17:45 | XMS_ITS ---
Author Name [facility] Organization Unknown History of Medication Use Medication Directions Dispensed Refills Start Date End Date Stat budesonide-formotero l (SYMBICORT) 80-4.5 MCG/ACT inhaler Inhale 2 puffs 2 (two) times a day. 06/13/2023 active acetaminophen (TYLENOL) 500 MG tablet Take 1 tablet (500 mg total) by mouth 4 times daily (every 6 hours) as needed for mild pain. active albuterol (PROVENTIL) (0.083%) 2.5 mg/3 mL nebulizer solution Take 3 mL (2.5 mg total) by nebulization 4 times daily (every 6 hours) as needed for wheezing. 06/13/2023 06/13/2023 active Linzess 290 MCG Cap capsule 05/07/2022 active OMEprazole (PriLOSEC) 20 MG capsule 06/13/2022 active fexofenadine (LUCIA) 180 MG tablet Take 1 tablet (180 mg total) by mouth. active amLODIPine (NORVASC) 10 MG tablet Take 1 tablet (10 mg total) by mouth daily. 12/30/2021 active Problems Problem Status Onset Date Problem Type Date of Resoluti on Source Moderate persistent asthma without complication active 2022-06-29 [facility]Act [facility] Diverticulitis large intestine active 2017-06-27 [facility]Act [facility] Pulmonary nodules active 2022-06-29 [facility]Act [facility] Sjogren's syndrome active 2023-06-13 [facility]Act [facility]
--- OUTSIDE RECORDS SUMMARY | 2024-08-22 17:46 | XMS_ITS ---
Author Organization [facility] Address [address] [place], [place] [id number] Care Team Providers Care Emissions Testing Technician Name Role Phone RACHEL CAVAZOS Primary Care Provider [phone] [facility] CHARY HUA Unavailable [phone] REASON FOR VISIT Wrist sprain/pain Encounters Encounter Location Date Provider Diagnosis [facility], [address] [id number] 12/08/2023 CHARY HUA PLAN OF TREATMENT No Information Progress Notes * JOHNYVONNEANTHONYDOB:1950 (74 yo F)Acc No.[id number]:12/08/2023 Progress Notes Patient:??STEWART LOPEZ Provider:??CHARY HUA NP :1950?Age:73 Y?Sex:Fe male Date:12/08/2023 Phone: Address:[address], [place], [place] Pcp:RACHEL CAVAZOS Subjective: * Chief Complaints: * ?1. Wrist sprain/pain. * ROS:?all systems reviewed and are non-contributory unless specified in the HPI. * Medical History:?? Objective: * Examination: ?General Examination: ?GEN: NAD, speaking in full complete sentences, thoughts clear and appropriate ?RESP: nonlabored breathing, lungs clear/equal all santiago ?CV: S1S2 regular ?NEURO: AO x 3 ?PSYCH: judgment/insight intact, NL mood/affect. Assessment: Plan: * Treatment: * Billing Information: * Visit Code:?? * Procedure Codes:?? * Sign off status: Pending * Provider:??CHARY HUA NP Date:?? History and Physical Notes * Examination Category Sub-Category Detail Notes Category Not es General Examination GEN: NAD, speaking in full complete sentences, thoughts clear and appropriate RESP: nonlabored breathing, lungs clear/equal all santiago CV: S1S2 regular NEURO: AO x 3 PSYCH: judgment/insight intact, NL mood/affect
--- OUTSIDE RECORDS SUMMARY | 2024-08-22 17:46 | XMS_ITS ---
Author Organization [facility] Address [address] [place], [place] [address] Care Team Providers Care Check Services Clerk Name Role Phone RACHEL CAVAZOS Primary Care Provider [phone] [facility] CHARY HUA Unavailable [phone] REASON FOR VISIT CPE Encounters Encounter Location Date Provider Diagnosis [facility], [address] [id number] 01/11/2024 CHARY HUA PLAN OF TREATMENT No Information Progress Notes * STEWART LOPEZDOB:1950 (74 yo F)Acc No.[id number]:01/11/2024 Progress Note Patient:??STEWART LOPEZ Provider:??CHARY HUA NP :1950?Age:73 Y?Sex:Fe male Date:01/11/2024 Phone: Address:[address], [address], [place] Pcp:RACHEL CAVAZOS Subjective: * Chief Complaints: * ?1. CPE. * Medical History:?? Objective: Assessment: Plan: * Treatment: Care Plan: * Problems:?? * Billing Information: * Visit Code:?? * Procedure Codes:?? * Sign off status: Pending * Provider:??CHARY HUA NP Date:??
--- OUTSIDE RECORDS SUMMARY | 2024-08-22 17:46 | XMS_ITS ---
Author Organization [facility] Address [address] [place], [place] [address] Care Team Providers Care Customer Service Analyst Name Role Phone RACHEL CAVAZOS Primary Care Provider CHARY HUA Unavailable [phone] REASON FOR VISIT Message- ? ADR Encounters Encounter Location Date Provider Diagnosis [facility], [address] [phone] 11/21/2023 CHARY HUA PLAN OF TREATMENT No Information Progress Notes * STEWART LOPEZDOB:1950 (73 yo F)Acc No.[id number]:11/21/2023 Patient:??STEWART LOPEZ :1950?Age:73 Y?Sex:Fe male Phone: Address:[address], [place] [address] * true * Date:??
[2024-08-22 17:48] LABS: Basophils Absolute Auto 0.1 X10*3/uL (0.0-0.2); Basophils Percent Auto 0.9 % (0-2); Eosinophils Absolute Auto 0.2 X10*3/uL (0.0-0.4); Eosinophils Percent Auto 1.9 % (0-4); Hematocrit 42.1 % (37.0-47.0); Hemoglobin 14.1 g/dl (12.0-16.0); Imm Gran Abs Auto 0.03 X10*3/uL (0.00-0.03); Imm Gran Pct Auto 0.4 % (0.0-0.4); Lymphocytes Absolute Auto 1.9 X10*3/uL (1.2-4.9); Lymphocytes Percent Auto 22.5 % (20-40); Mean Corpuscular HGB Conc 33.5 g/dl (31.0-35.0); Mean Corpuscular Hemoglobin 32.1 pg (27.0-33.0); Mean Corpuscular Volume 95.9 fL (80.0-98.0); Mean Platelet Volume 11.3 fL (9.4-12.3); Monocytes Percent Auto 12.3 % (2-11); Neutrophils Absolute Auto 5.3 x10*3/uL (2.0-8.3); Platelet Count 236 X10*3/uL (160-400); Red Blood Count 4.39 X10*6/uL (4.20-5.50); Red Cell Distribution Width 12.9 % (11.0-16.0); White Blood Count 8.5 X10*3/uL (4.8-10.8)
[2024-08-22 17:56] LABS: Alanine Aminotransferase 77 U/L (0-31); Aspartate Amino Transferase 81 U/L (5-31); Estimated Glomerular Filt Rate > 60
== END 2024-08-22 14:33 | disposition home or self-care (01) ==
LOC: HO.HKASLDS 14:32
PROVIDERS: PCP Nurse Practitioner Family; Visit Provider Internal Medicine Rheumatology
DX: M19.90 Unspecified osteoarthritis, unspecified site (principal); M70.61 Trochanteric bursitis, right hip; M70.62 Trochanteric bursitis, left hip; M25.561 Pain in right knee; M25.562 Pain in left knee; G89.29 Other chronic pain
CPT/HCPCS: 20610; 36415; 82565; 84450; 84460; 85025; 99212; J2003; J3300

== ENCOUNTER 2024-09-21 14:40 | Outpatient (AMB) | payer MEDICARE, SELFPAY ==
[2024-09-21 14:45] VITALS: BP 142/76; PULSE 74; O2SAT 96; BMI 33.3
--- NOTE | 2024-09-21 14:45 | MHC.OFFVIS ---
Vital Signs 09/21/24 14:45 Height 5 ft 8 in Weight 219 lb 5.759 oz BMI 33.3 BP 142/76 H Blood Pressure Location Lt brachial Position Sitting Pulse 74 Pulse Source Pulse Oximeter Pulse Oximetry (%) 96 Oxygen Delivery Method Room Air Intake Visit Reasons: Pulm Nodules Allergies acetaminophen [From PERCOCET] Allergy (Severe, Verified 09/21/24 14:49) RASH latex Allergy (Severe, Verified 09/21/24 14:49) Rash HPI Comments Details: The patient is a 74-year-old woman with known history of pulmonary nodules and asthma. Overall her respiratory status waxes and wanes. She still has a difficult time going up a flight of stairs. Nlns-vn-caxoxtnh severity. She does use her Symbicort on a regular basis. She tries not to use her rescue inhaler. She is concerned about the winter because as usually her worse months. At this point will optimize her respiratory therapy adding Spiriva to her regimen. We also looked at her CT scan of the chest last done August 2019 demonstrating stable pulmonary nodules although she did have increased atelectasis specially at the right base. Will plan to repeat a CT scan of the chest sometime in the fall of 2020. 12/08/2021 the patient has a telephone visit today. She is doing relatively well. Denies any significant shortness of breath or wheezing. She does have intermittent cough mild in severity. She continues use her nebulized therapy with good response. She did recently have a CT scan of the chest that I personally reviewed and compared to previous. Patient has multiple pulmonary nodules. It appears that 1 of the nodules slightly increased in size. But all the nodules are subcentimeter in size largest 1 measuring 6 mm. There was a question of PET scan on the actual impression from the radiologist. However explained to the patient that based on the small size a PET scan would not be an accurate study at this time. No significant changes from the nodule standpoint. Will request another CT scan in a year's time. Will plan to discuss the case in tumor conference with Radiology present. This will be can clear 5 the request for PET scan. we also reviewed her last pulmonary function study that actually occurred back in March 2021 which demonstrated a mild diffusion impairment along with a low normal total lung capacity. The patient understands that she does have increased abdominal pressure due to an elevated BMI that is likely contributing to the low total lung capacity and diffusing capacity. The patient also has some evidence of atelectasis on her CT scan although some of it has actually improved when compared to previous. 11/28/2023 the patient is here for pulmonary follow-up visit. Overall the patient has been doing well. She was lost to follow-up for appeared of time because she was trying change her care to [facility]. But was too far away. Her last CT scan of the chest was back in January 2023 and will send a Bakari. I do have city although have not been able to downloaded into the system. They did documented new 3 mm pulmonary nodule. His hard to know if this nodule is completing but we need to compared to previous. The patient has had numerous nodules prior to that. The largest nodule documented on her last CT scan from [place] back in January was most 5.9-6 mm in size. On that CT scan also described ground-glass opacities in the dimensions small airways disease suggesting mosaic pattern. We did review her most recent CT scan that we have available the system from 2021 and I did not see any mosaic pattern at that time. The patient did have significant atelectasis primarily in the right lower lobe area. Once we were able to download this CD will get compare. The patient is concerned about too many CT scans because the very expensive with a co-pay of 250 dollars. Therefore will try to minimize the exposure to radiation into the exposure to the cat scans. Although now with a new 3 mm pulmonary nodule we need to continue surveillance. She stopped the nebulized therapy was switched over to Symbicort. She does use it as needed. She is still getting shortness breath with activity. Gyro-ou-unixrmcm severity. She also has other comorbidities such as musculoskeletal issues that also limit her activity. She does we did talk about pulmonary rehabilitation. When she finishes home physical therapy we can consider pulmonary function studies in order to get a pulmonary rehabilitation. 09/21/2024 the patient is here for pulmonary follow-up visit. Overall she is doing okay. She is having issues with bursitis and recently got a shot for the bursa and seems to be walking better. But now that she is walking better she seems to be more short of breath. Prfy-pm-nuxznuso severity. She does complaint of some chest heaviness as well. Some substernal discomfort that comes and goes. Right now she does not have it. She has not had an EKG in some time and she has not had a stress test either. She did undergo a pulmonary function study back in 2020 without any obstructive airway disease. And does not have any significant wheezing or rhonchi or diminished breath sounds on exam. The patient did have a CT scan of the chest demonstrating a new pulmonary nodule potentially in the left upper lobe. I will have to compare to her previous CT scans available. I do not foresee that this is a significant finding. She has likely had this before specially since it was only compared to a CT scan from 2016. Still if the nodules new was only 3 mm in size and will just need another CT scan in a year's time. We did go for a walking oximetry the patient did good and her oxygen was stable. Will go ahead and have her get a EKG and also a cardiac stress test. [facility] Medical History (Updated 09/23/24 @ 11:22 by Yogi Villasenor MD) Dyspnea Chest discomfort GERD (gastroesophageal reflux disease) RP (rectal prolapse) Hemoptysis Asthma-COPD overlap syndrome Osteopenia Atelectasis Pulmonary nodules Asthma Surgical History H/O: hysterectomy Hx of cholecystectomy Family History Mother Asthma HTN (hypertension) Cardiovascular disease Sister Asthma HTN (hypertension) Cancer Paternal Grandmother Colon cancer Social History Household Members: Spouse Both parents involved: No Caregiver staying overnight: No Housing: Apartment Are you a primary healthcare administration internship to a significant other at home: No Do you presently have visiting nurse or other home services: No 75 years or older and lives alone: No Alcohol intake: never Patient Tobacco Use Status: Never used Tobacco e-Cigarette/Vaping Use: Never Used service: No Current occupational status: retired Current occupational exposures/hazards: No Cognitive needs: No Hearing needs: Yes Vision needs: Yes (wear glasses) Review of Systems Const Denies night sweats ENT Denies change in voice, Denies lip swelling, Reports epistaxis, Denies mouth pain, Reports nasal congestion, Reports nasal discharge and Denies tongue swelling Card Denies chest pain and Reports dyspnea on exertion Resp Reports cough, Denies hemoptysis and Reports dyspnea on exertion GI Denies abdominal pain Musc Reports abnormal gait Neuro Denies Neuro-related abnormal movements and Reports abnormal gait Psych Denies no additional complaints Solis/Lymph Denies easy bleeding and Denies lymphadenopathy Aller/Immun Denies lip swelling and Denies tongue swelling Physical Exam Vital Signs: Last Vital Signs Pulse 74 09/21/24 14:45 BP 142/76 H 09/21/24 14:45 Pulse Ox 96 09/21/24 14:45 Oxygen Delivery Method Room Air 09/21/24 14:45 BMI result Body Mass Index 33.3 Const General: comfortable and alert HEENT Head: Yes normocephalic General nose exam: Abnormal external nose present and Nasal discharge present Eyes Pupils: Equal, round and reactive pupils present Neck Neck: Yes normal visual inspection, Yes full ROM and Yes no lymphadenopathy Chest Chest palpation & inspection: normal inspection of the chest Resp Effort & Inspection: normal respiratory effort Auscultation: diminished lung sounds Cardio Rate: regular rate Rhythm: regular rhythm Heart sounds: S1 normal heart sound present and S2 normal heart sound present GI Palpation (GI): Soft to palpation and nontender Auscultation: normal bowel sounds General: Yes no CVA tenderness Back/Spine/Pelvis Back: no CVA tenderness Skin General skin exam: no rashes or lesions noted Neuro Cranial nerves: Yes Equal, round and reactive pupils present Extrem General: Yes no clubbing, cyanosis or edema Assessment & Plan Assessment & Plan (1) Asthma-COPD overlap syndrome: Code(s): J44.9 - Chronic obstructive pulmonary disease, unspecified Category: Medical (2) Pulmonary nodules: Code(s): R91.8 - Other nonspecific abnormal finding of lung field Category: Medical (3) Sjogren's syndrome with keratoconjunctivitis sicca: Code(s): M35.01 - Sjogren syndrome with keratoconjunctivitis Category: Medical (4) Dyspnea: Code(s): R06.00 - Dyspnea, unspecified Category: Medical Qualifiers: Dyspnea type: dyspnea on exertion Qualified Code(s): R06.09 - Other forms of dyspnea (5) Atelectasis: Code(s): J98.11 - Atelectasis Category: Medical (6) Asthma: Code(s): J45.909 - Unspecified asthma, uncomplicated Category: Medical Qualifiers: Asthma complication type: uncomplicated Asthma persistence: persistent Asthma severity: moderate Qualified Code(s): J45.40 - Moderate persistent asthma, uncomplicated (7) Chest discomfort: Code(s): R07.89 - Other chest pain Category: Medical Plan Continue symbicort CT chest in 1 year EKG Cardiology referral for a nuclear stress test F/U 6-12 months Orders: Orders ECG 12 lead EKG 09/21/24 R07.89 - Other chest pain Referrals Cardiology Referral R06.09 - Other forms of dyspnea, R07.89 - Other chest pain Medications: New trazodone 50 mg PO BEDTIME 30 days PRN 30 tabs 6RF sleep Coding Level of Care Code Est Pt Level 4 (07472) Diagnoses Asthma-COPD overlap syndrome J44.9 Pulmonary nodules R91.8 Sjogren's syndrome with keratoconjunctivitis sicca M35.01 Dyspnea on exertion R06.09 Dyspnea type: dyspnea on exertion Atelectasis J98.11 Moderate persistent asthma without complication J45.40 Asthma complication type: uncomplicated Asthma persistence: persistent Asthma severity: moderate Chest discomfort R07.89 Time Spent (min) 17
--- OUTSIDE RECORDS SUMMARY | 2024-09-21 14:57 | XMS_ITS ---
Author Organization [facility] Address [address] [place], [place] [id number] Care Team Providers Care Manganese Heater Name Role Phone RACHEL CAVAZOS Primary Care Provider CHARY HUA Unavailable [phone] REASON FOR VISIT Message- ? ADR Encounters Encounter Location Date Provider Diagnosis [facility], [address] [id number] 11/21/2023 CHARY HUA PLAN OF TREATMENT No Information Progress Notes * STEWART LOPEZDOB:1950 (73 yo F)Acc No.[id number]:11/21/2023 Patient:??STEWART LOPEZ :1950?Age:73 Y?Sex:Fe male Phone: Address:[address], [place] [address] * true * Date:??
--- OUTSIDE RECORDS SUMMARY | 2024-09-21 14:58 | XMS_ITS | Encounter Summary ---
Author Organization [facility] Address [address] [place] [address] Care Team Providers Care Rip Saw Operator Name Role Phone Lawrence Gary MD Primary Care Provider [phone] Encounter Details Date Type Department Care Team (Late st Contact Info) Description 07/09/2014 Scanned Document [address] [place] [phone] Provider, Generic Social History Tobacco Use Types [...] on filedocumented in this encounter Care Teams Rip Saw Operator Relationship Specialty Start Date End Date Lawrence Gary MD [address] [place] [address] PCP - General Psychiatry, General 10/18/16 documented as of this encounter
--- OUTSIDE RECORDS SUMMARY | 2024-09-21 14:58 | XMS_ITS | Encounter Summary ---
Author Organization [facility] Address [address] [place] [address] Care Team Providers Care Junior Mechanical Engineer Name Role Phone Lawrence Gary MD Primary Care Provider [phone] Encounter Details Date Type Department Care Team (Late st Contact Info) Description 10/19/2000 Scanned Document [facility] Colorectal Surgery [address] [place] [address] Provider, Qasim, [address] [place] [address] Social History Tobacco Use Types Packs/Day Years [...] on filedocumented in this encounter Care Teams Junior Mechanical Engineer Relationship Specialty Start Date End Date Lawrence Gary MD [address] [place] [address] PCP - General Psychiatry, General 10/18/16 documented as of this encounter
--- OUTSIDE RECORDS SUMMARY | 2024-09-21 14:58 | XMS_ITS | Clinical Summary ---
Author Organization [facility] Address [address] [place] [address] Phone Care Team Providers Care Retirement Actuary Name Role Phone Duran Gomez MD Primary [...] [facility] [address] [place] [address] Jude Pinto MD [address] [phone] Health Maintenance Due Date Last Done Comments Breast Cancer Screening 1950 Pneumococcal Vaccine: 65+ Ye ars (1 of 2 - PCV) 1956 Colorectal Cancer Screening: Annual FOBT 1999 Colorectal Cancer Screening: Colonoscopy 1999 Colorectal Cancer Screening: Sigmoidoscopy 1999 Influenza Vaccine (#1) 2024 06/01/2020 Hepatitis B Vaccine Aged Out No longe r eligible based on patient's age to complete this topic Insurance [facility] Care Teams Retirement Actuary Relationship Specialty Start Date End Date Duran Gomez MD [address] [place] [address] PCP - General Family Medicine 12/29/23
--- OUTSIDE RECORDS SUMMARY | 2024-09-21 14:58 | XMS_ITS | Encounter Summary ---
Author Organization [facility] Address [address] [place] [address] Care Team Providers Care Director Digital Name Role Phone Lawrence Gary MD Primary Care Provider [phone] Encounter Details Date Type Department Care Team (Late st Contact Info) Description 08/04/2007 Scanned Document [facility] Colorectal Surgery [address] [place] [address] Provider, Qasim, [address] [place] [address] Social History Tobacco Use Types Packs/Day Years [...] on filedocumented in this encounter Care Teams Director Digital Relationship Specialty Start Date End Date Lawrence Gary MD [address] [place] [address] PCP - General Psychiatry, General 10/18/16 documented as of this encounter
--- OUTSIDE RECORDS SUMMARY | 2024-09-21 14:58 | XMS_ITS | Encounter Summary ---
Author Organization [facility] Address [address] [place] [address] Care Team Providers Care Soft Iron Inspector Name Role Phone Lawrnece Gary MD Primary Care Provider [phone] Encounter Details Date Type Department Care Team (Late st Contact Info) Description 04/21/2022 Scanned Document [facility] Pulmonary [address] [place] [phone] Pulmonary, Scan Social History Tobacco Use Types Packs/Day Years Used Date Smoking Tobacco: Former Cigarettes 2 5 1 969 - 4561 Smokeless Tobacco: Never Alcohol Use Standard Drinks/Week [...] on filedocumented in this encounter Care Teams Soft Iron Inspector Relationship Specialty Start Date End Date Lawrence Gary MD [address] [place] [address] PCP - General Psychiatry, General 10/18/16 documented as of this encounter
--- OUTSIDE RECORDS SUMMARY | 2024-09-21 14:58 | XMS_ITS | Encounter Summary ---
Author Organization [facility] Address [address] [place] [address] Care Team Providers Care Primary Care Coordinator Name Role Phone Lawrence Gary MD Primary Care Provider Encounter Details Date Type Department Care Team (Late st Contact Info) Description 02/07/2014 Scanned Document [address] [place] [phone] Provider, Generic Social History Tobacco Use Types [...] on filedocumented in this encounter Care Teams Primary Care Coordinator Relationship Specialty Start Date End Date Lawrence Gary MD [address] [place] [address] PCP - General Psychiatry, General 10/18/16 documented as of this encounter
--- OUTSIDE RECORDS SUMMARY | 2024-09-21 14:58 | XMS_ITS | Patient Health Record ---
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 Machining Instructor Name Role Phone RACHEL CAVAZOS Primary Care Provider CHARY HUA Unavailable [phone] ALLERGIES Allergen (clinical drug ingredient) Drug/Non Drug Allergy documented on EMR Reaction Allergy Type Onset Date Status acetaminophen / oxycodone Percocet Nausea Drug Allergy Active codeine Codeine Nausea Drug Allergy Active RESULTS Component Value Reference Range Notes 1,25OH VITAMIN D Reviewed date:09/27/2023 04:19:25 PM Interpretation: Performing Lab:Testing performed or reported by [facility], a Service of [facility], [facility] [place] [address] Cooper Tsai MD, Air Route Traffic Controller CLIA# [id number] Notes/Report: 1,25OH VITAMIN D 50.8 Reference range: 24.8 to 81.5 Unit: pg/mL Test performed by [facility], [address] [place] [address] ANTITHYROGLOBULIN AB Reviewed date:09/27/2023 08:46:03 AM Interpretation: Performing Lab:Testing performed or reported by [facility], a Service of [facility], [address] [place] [address] Cooper Tsai MD, Air Route Traffic Controller CLIA# [id number] Notes/Report: ANTITHYROGLOBULIN AB 12.6 (<115) IU/ML The results are assay dependent and cannot be interchangeable with other assays. The antibody assay is being performed using the electrochemiluminescence immunoassay on the Jolynn Chiara immunoassay analyzer. A correlation with clinical presentation is recommended while interpreting the results. APOLIPOPROTEIN A1 Reviewed date:09/27/2023 04:19:25 PM Interpretation: Performing Lab:Testing performed or reported by [facility], a Service of [facility], [facility] [place] [address] Cooper Tsai MD, Air Route Traffic Controller [facility]# [id number] Notes/Report: APOLIPOPROTEIN A1 199 Reference range: 116 to 209 Unit: mg/dL Test performed by [facility], [address] [place] [address] APOLIPOPROTEIN B Reviewed date:09/27/2023 04:19:25 PM Interpretation: Performing Lab:Testing performed or reported by [facility] [place], a Service of [facility], [address] [place] [address] Cooper Tsai MD, Air Route Traffic Controller [facility]# [id number] Notes/Report: APOLIPOPROTEIN B 134 Reference range: <90 Unit: mg/dL (NOTE) Desirable < 90 Borderline High 90 - 99 High 100 - 130 Very High >130 ASCVD RISK THERAPEUTIC TARGET CATEGORY APO B (mg/dL) Very High Risk <80 (if extreme risk <70) High Risk <90 Moderate Risk <90 Test performed by [facility], [address] [place] [address] CBC (COMPLETE BLOOD COUNT) W ITH DIFF Reviewed date:09/27/2023 08:46:03 AM Interpretation: Performing Lab:Testing performed or reported by [facility] [place], a Service of [facility], [address] [place] [address] Cooper Tsai MD, Air Route Traffic Controller [facility]# [id number] Notes/Report: WBC 7.5 (4.0-11.0) K/MM3 RBC 4.54 (4.20-5.40) M/MM3 HGB 14.7 (11.7-15.5) GM/DL HCT 44.5 (35.7-45.8) % MCV 98.0 (80.0-100.0) FL MCH 32.4 (27.0-34.0) PG MCHC 33.0 (33.0-37.0) g/dL PLT 299 (150-460) K/MM3 RDW-SD 47.5 (<47.0) FL MPV 10.8 (9.4-12.4) FL AUTOMATED NRBC 0.0 ABS. NRBC 0.0 NEUT # 4.6 (1.3-7.0) K/MM3 LYMPH # 1.7 (0.8-3.1) K/MM3 MONO# 0.9 (0.4-0.9) K/MM3 EO # 0.2 (0.0-0.4) K/MM3 BASO # 0.1 (0.0-0.1) K/MM3 ABS. IMM GRAN 0.0 NEUT 61.8 (44-76) % LYMPH 22.3 (15-43) % MONOCYTE 11.6 (4.5-10.5) % EO 2.9 (0-6) % BASO 1.1 (0-2) % IMM GRAN 0.3 COMPREHENSIVE METABOLIC PANE L Reviewed date:09/27/2023 08:46:03 AM Interpretation: Performing Lab:Testing performed or reported by [facility], a Service of [address] [address] Cooper Tsai MD, Air Route Traffic Controller [facility]# [id number] Notes/Report: GLUCOSE 116 (70-99) MG/DL BUN 14 (8-23) MG/DL CREATININE 0.9 (0.5-1.0) MG/DL SODIUM 141 (133-145) MMOL/L POTASSIUM 4.4 (3.6-5.2) MMOL/L CHLORIDE 102 (98-107) MMOL/L BICARBONATE 24 (22-29) MMOL/L ANION GAP 15 (4-17) ALBUMIN 4.3 (3.4-4.8) GM/DL CALCIUM 10.2 (8.6-10.5) MG/DL BILIRUBIN,TOTAL 0.5 (0-1.2) MG/DL TOTAL PROTEIN 7.2 (6.2-8.2) GM/DL AG RATIO 1.5 AST 52 (0-32) U/L ALK PHOS 118 (35-104) U/L ALT 53 (0-33) U/L ESTIMATED GFR CREATININE 66 Creatinine based estimated glomerular filtration (eGFR) in adults is calculated using the National Kidney Foundation recommended 202 CKD-EPI equation. Estimates GFR from serum creatinine, age and sex. CRP, HIGH SENSITIVITY Reviewed date:09/27/2023 08:46:03 AM Interpretation: Performing Lab:Testing performed or reported by [facility], a Service of [address] [address] Cooper Tsai MD, Air Route Traffic Controller [facility]# [id number] Notes/Report: CARDIO CRP 4.35 (0-3) MG/L HEMOGLOBIN A1C Reviewed date:09/27/2023 08:46:03 AM Interpretation: Performing Lab:Testing performed or reported by [facility], a Service of [address] [address] Cooper Tsai MD, Air Route Traffic Controller [facility]# [id number] Notes/Report: HEMOGLOBIN A1C 5.7 (4.0-5.6) % MONITORING: In known diabetic patients, hemoglobin A1c targets should be discussed with health care provider. DIAGNOSTIC USE: The [place] Diabetes Association (ADA) and the World Health Organization (WHO) recommend the use of HbA1c to diagnose diabetes using a threshold of 6.5%. Patients who have an HbA1c between 5.7% and 6.4% are considered at increased risk for developing diabetes in the future. CAUTION: Falsely low HbA1c results may be observed in patients with hemolytic anemia, homozygous forms of abnormal hemoglobin (e.g. SS, CC, SC), , recent blood loss or hemoglobin F greater than 7%. Fructosamine may be used as an alternate test in these cases. REFERENCE: ADA: Standards of Medical Care in Diabetes 2020, The Journal of Clinical and Applied Research and Education Volume 43, Supplement 1 INSULIN Reviewed date:09/27/2023 08:46:03 AM Interpretation: Performing Lab:Testing performed or reported by [facility] [place], a Service of [address] [address] Cooper Tsai MD, Air Route Traffic Controller [facility]# [id number] Notes/Report: INSULIN 52.1 (2.6-24.9) uU/mL IRON AND TIBC Reviewed date:09/27/2023 08:46:03 AM Interpretation: Performing Lab:Testing performed or reported by [facility] [place], a Service of [address] [address] Cooper Tsai MD, Air Route Traffic Controller [facility]# [id number] Notes/Report: IRON 109 (30-160) MCG/DL UNSATURATED IRON BINDING CAPAC 252 (110-370) MCG/DL EST T. IRON BIND CAPACITY 361 (140-530) MCG/D L % IRON SATURATION 30 (20-55) % LIPID PANEL Reviewed date:09/27/2023 08:46:03 AM Interpretation: Performing Lab:Testing performed or reported by [facility], a Service of [facility], [address] [place] [address] Cooper Tsai MD, Air Route Traffic Controller CLIA# [id number] Notes/Report: CHOLESTEROL, TOTAL 261 (<200) MG/DL TRIGLYCERIDE 207 (<150) MG/DL HDL CHOL 71 (>39) MG/DL LDL CHOLESTEROL, CALCULATED 149 (0-130) MG/DL NON HDL CHOLESTEROL (CALC) 190 (<160) MG/DL MAGNESIUM Reviewed date:09/27/2023 08:46:03 AM Interpretation: Performing Lab:Testing performed or reported by [facility], a Service of [address] [address] Cooper Tsai MD, Air Route Traffic Controller CLIA# [id number] Notes/Report: MAGNESIUM 2.2 (1.6-2.3) mg/dL METHYLMALONIC ACID, SERUM Reviewed date:10/04/2023 02:51:37 PM Interpretation: Performing Lab:Testing performed or reported by [facility], a Service of [facility], [address] [place] [address] Cooper Tsai MD, Air Route Traffic Controller CLIA# [id number] Notes/Report: METHYLMALONIC ACID, SERUM 241 Reference range: 0 to 378 Unit: nmol/L (NOTE) This test was developed and its performance characteristics determined by [facility]. It has not been cleared or approved by the Food and Drug Administration. Test performed at [address] [address] MICROALBUMIN, URINE Reviewed date:09/27/2023 08:46:03 AM Interpretation: Performing Lab:Testing performed or reported by [facility], a Service of [address] [address] Cooper Tsai MD, Air Route Traffic Controller CLIA# [id number] Notes/Report: MICRO-ALBUMIN 26.0 (<20) MG/L The urine microalbumin test is designed to monitor renal function. When screening for Bence Rojo proteinuria, urine electrophoresis is recommended. MALB/CREAT RATIO 16.5 (0-20) MG/GM URINE CREAT FOR MICRO ALBUMIN 160.3 THYROID PANEL Reviewed date:09/27/2023 08:46:03 AM Interpretation: Performing Lab:Testing performed or reported by [facility], a Service of [address] [address] Cooper Tsai MD, Air Route Traffic Controller [facility]# [id number] Notes/Report: FREE T4 1.26 (0.70-1.80) NG/DL TSH 3.53 (0.4-4.2) uIU/mL THYROID PEROXIDASE (ANTIMICR OSOMAL) ANTIBODIES Reviewed date:09/27/2023 08:46:03 AM Interpretation: Performing Lab:Testing performed or reported by [facility], a Service of [address] [address] Cooper Tsai MD, Air Route Traffic Controller [facility]# [id number] Notes/Report: ANTI THYROID PEROXIDASE AB <9.0 (<34) IU/ML The results are assay dependent and cannot be interchangeable with other assays. The antibody assay is being performed using the electrochemiluminescence immunoassay on the Jolynn Chiara immunoassay analyzer. A correlation with clinical presentation is recommended while interpreting the results. URIC ACID Reviewed date:09/27/2023 08:46:03 AM Interpretation: Performing Lab:Testing performed or reported by [facility], a Service of [address] [address] Cooper Tsai MD, Air Route Traffic Controller [facility]# [id number] Notes/Report: URIC ACID 4.8 (1.6-7.6) MG/DL VITAMIN B12 Reviewed date:09/27/2023 08:46:03 AM Interpretation: Performing Lab:Testing performed or reported by [facility], a Service of [address] [address] Cooper Tsai MD, Air Route Traffic Controller [facility]# [id number] Notes/Report: VITAMIN B12 490 (232-1245) pg/mL ANALYZER(TM)PHILLIP, IFA WITH RE FLEX TITER/PATTERN, SYSTEMIC AUTOIMMUNE PANEL 1 (68799) Reviewed date:11/08/2023 06:49:30 PM Interpretation: Performing Lab:[facility], [facility],[address], [facility] [id number] Pamela Lozoya MD,PhD,[place]RIKA Notes/Report: FASTING:NO FASTING: NO PHILLIP SCREEN, IFA NEGATIVE NEGATIVE PHILLIP IFA is a first line screen for detecting the presence of up to approximately 150 autoantibodies in various autoimmune diseases. A negative PHILLIP IFA result suggests an PHILLIP-associated autoimmune disease is not present at this time, but is not definitive. If there is high clinical suspicion for Sjogren's syndrome, testing for anti-SS-A/Ro antibody should be considered. Anti-Dalia-1 antibody should be considered for clinically suspected inflammatory myopathies. AC-0: Negative International Consensus on PHILLIP Patterns https://doi.org/10.1515/cc ei-8761-1034 For additional information, please refer to http://education.Slantrange/faq/TMX704 (This link is being provided for information/educational purposes only.) DNA AB (DS) CRITHIDIA,IFA NEGATIVE NEGATIVE CHROMATIN (NUCLEOSOMAL) ANTIBODY <1.0 NEG <1.0 NEGATIVE AI SM ANTIBODY <1.0 NEG <1.0 NEGATIVE AI SM/BILLIARD TABLE ASSEMBLER ANTIBODY <1.0 NEG <1.0 NEGATIVE AI BILLIARD TABLE ASSEMBLER ANTIBODY <1.0 NEG <1.0 NEGATIVE AI SJOGREN'S ANTIBODY (SS-A) <1.0 NEG <1.0 NEGATIVE A I SJOGREN'S ANTIBODY (SS-B) <1.0 NEG <1.0 NEGATIVE A I SCL-70 ANTIBODY <1.0 NEG <1.0 NEGATIVE AI DALIA-1 ANTIBODY <1.0 NEG <1.0 NEGATIVE AI CENTROMERE B ANTIBODY <1.0 NEG <1.0 NEGATIVE AI COMPLEMENT COMPONENT C3C 176 83-193 mg/dL COMPLEMENT COMPONENT C4C 33 15-57 mg/dL CARDIOLIPIN AB (IGA) <2.0 Value Interpretation ----- <20.0 Antibody not detected > or = 20.0 Antibody detected CARDIOLIPIN AB (IGG) <2.0 Value Interpretation ----- <20.0 Antibody not detected > or = 20.0 Antibody detected CARDIOLIPIN AB (IGM) <2.0 Value Interpretation ----- <20.0 Antibody not detected > or = 20.0 Antibody detected B2 GLYCOPROTEIN I (IGA)AB <2.0 Value Interpretation ----- <20.0 Antibody not detected > or = 20.0 Antibody detected B2 GLYCOPROTEIN I (IGG)AB <2.0 Value Interpretation ----- <20.0 Antibody not detected > or = 20.0 Antibody detected B2 GLYCOPROTEIN I (IGM)AB <2.0 The antiphospholipid antibody syndrome (APS) is a clinical-pathologic correlation that includes a clinical event (e.g. arterial or venous thrombosis, morbidity) and persistent positive antiphospholipid antibodies (IgM, IgG Cardiolipin or b2GPI antibodies greater than the 99th percentile; or a lupus anticoagulant). International consensus guidelines for APS suggest waiting at least 12 weeks before retesting to confirm antibody persistence. The Systemic Lupus International Collaborating Clinics immunological classification criteria for systemic lupus erythematosus (SLE) include testing for isotype IgA, which has yet to be incorporated into APS criteria. Low level antiphospholipid antibodies may sometimes be detected in the setting of infection, drug therapy or aging. For additional information, please refer to http://education.GymRealm.Cartago Software/faq/FQL906 (This link is being provided for informational/educational purposes only.) Value Interpretation ----- <20.0 Antibody not detected > or = 20.0 Antibody detected RHEUMATOID FACTOR (IGA) <5 Reference Range: <=6 NEGATIVE >6 POSITIVE RHEUMATOID FACTOR (IGG) <5 Reference Range: <=6 NEGATIVE >6 POSITIVE RHEUMATOID FACTOR (IGM) <5 Reference Range: <=6 NEGATIVE >6 POSITIVE CYCLIC CITRULLINATED PEPTIDE (CCP) AB (IGG) <16 Reference Range: NEGATIVE: <20 WEAK POSITIVE: 20-39 MODERATE POSITIVE: 40-59 STRONG POSITIVE >59 MUTATED CITRULLINATED VIMENTIN (MCV) AB <20 <20 U/mL Anti-mutated citrullinated vimentin antibody may be used as a second-line marker of rheumatoid arthritis, in addition to rheumatoid factor and anti-cyclic citrullinated peptide (CCP). THYROID PEROXIDASE ANTIBODIES 2 <9 IU/mL SEDIMENTATION RATE Reviewed date:09/27/2023 08:46:03 AM Interpretation: Performing Lab:Testing performed or reported by [facility], a Service of [facility], [address] [place] [address] Cooper Tsai MD, Air Route Traffic Controller [place]# [id number] Notes/Report: SEDIMENTATION RATE,AUTOMATED 39 (0-20) MM/HR NORTHEAST TICK PCR PANEL Reviewed date:09/27/2023 04:19:25 PM Interpretation: Performing Lab:Testing performed or reported by [facility], a Service of [facility], [address] [place], [place] [address] [address] Cooper Tsai MD, Air Route Traffic Controller CLIA# [id number] Notes/Report: ANAPLASMA PCR Not detected (NOTDE) BABESIA PCR Not detected (NOTDE) EHRLICHIA PCR Not detected (NOTDE) B. BURGDORFERI PCR, BLOOD Not detected (NOTDE) B MIYAMOTOI PCR Not detected (NOTDE) Testing performed utilizing [employer]'s High-Definition PCR (HDPCR) technology. To prevent errors in diagnosis, test results should be interpreted in the context of clinical findings and other laboratory data. Assay does not distinguish between Borrelia burgdorferi and Borrelia mayonii. Borrelia mayonii is rarely detected in the [facility]. This test was developed, and its performance characteristics determined by [facility]. It has not been cleared or approved by the U.S. FDA. The FDA has determined that such clearance is not necessary. This laboratory is certified under CLIA 88 as qualified to perform high complexity clinical laboratory testing. HOMOCYSTEINE, PLASMA Reviewed date:09/27/2023 08:46:03 AM Interpretation: Performing Lab:Testing performed or reported by [facility], a Service of [address] [address] Cooper Tsai MD, Air Route Traffic Controller [place]# [id number] Notes/Report: HOMOCYSTEINE, PLASMA 14.3 (0-15) UMOL/L FERRITIN Reviewed date:09/27/2023 08:46:03 AM Interpretation: Performing Lab:Testing performed or reported by [facility] [place], a Service of [facility], [address] [place] [address] Cooper Tsai MD, Air Route Traffic Controller [place]# [id number] Notes/Report: FERRITIN 201 (14-283) NG/ML REASON FOR REFERRAL Reason please refer pt to [facility] pulmonology dx: asthma, pulmonary nodules Diagnosis 1 Moderate persistent asthma, uncomplicated (J45.40) Diagnosis 2 Other nonspecific ab normal finding of lung field (R91.8) Referral Organization [facility], [employer] Referring Provider First Name CHARY Referring Provider Last Name MELITA Referring Provider Speciality Preventive Medicine Referred Organization [facility], [facility] Referred Address [address] [place], [place] [address] [facility],[id number] Referred Provider Specialty Pulmonary Di seases General Notes KALIE BOBO 0 10/07/2023 11:06:22 AM >demographics, insurance info, referral and office note faxed to [facility] [place] [place] Pulmonology [phone] Referral Priority Routine MEDICATIONS Medication SIG (Take, Route, Frequency, Duration) Notes Start Date End Date Status Omeprazole 40 MG 1 capsule 30 minutes before morning meal Orally Once a day Active Losartan Potassium 100 MG 1 tablet Orally Once a day Active NIFEdipine 2% Ointment PRN Act inez Linzess 290 MCG 1 capsule at least 30 minutes before the first meal of the day on an empty stomach Orally Once a day Active Multi For Her 50+ - as directed Orally Active Magnesium 500mg/d Active amLODIPine Besylate 10 MG 1 tablet Orally Once a day Active diphenhydrAMINE HCl 25 MG 1 capsule at bedtime as needed Orally Once a day Active Meloxicam 15 MG 1 tablet Orally Once a day Not-Taking Albuterol Sulfate HFA 108 (90 Base) MCG/ACT 1 puff as needed Inhalation every 4 hrs Active Cyclobenzaprine HCl 5 MG 1 tablet at bedtime as needed Orally Once a day Active DULoxetine HCl 30 MG as directed Orally Once a day for 30 days 11/17/2023 Active Vitamin D3 50 MCG (2000 UT) 1 capsule Orally Once a day Active Fish Oil 1200 MG 1 capsule Orally Three times a day Active SOCIAL HISTORY Tobacco Use: Social History Observation Description Date Details (start date - stop date) Former Smoker 08/01/1974 - 08/01/1980 Sex Assigned At : Social History Observation Description Sex Assigned At Unknown Household Question Answer Notes Marital status: Number of adults in household: 2 Tobacco Use/Smoking Question Answer Notes Tobacco use: former smoker When did you start smoking? 08/01/1974 When did you stop smoking? 08/01/1980 How long has it been since y ou last smoked? > 10 years Additional Findings: Tobacco User Heavy cigarett e smoker (20-39 cigs/day) Section Notes: Lives in [place], [place] with . Enjoy ministry, cards, Jehovah's witness Lives in [place] with . Enjoy ministry, cards, Jehovah's witness Lives in [place] with . Enjoy ministry, cards, Jehovah's witness PROBLEMS Problem Type ICD Code Onset Dates Problem Status W/U Status Risk SNOMED Code Notes Problem Hyperlipidemia, unspecified (E78.5) Active confirmed Hyperlipidemia (71156288) Problem Chronic pain syndrome (G89.4) Active confirmed Chronic cha n syndrome (640507444) Problem Hypertensive chronic kidney disease with stage 1 through stage 4 chronic kidney disease, or unspecified chronic kidney disease (I12.9) Active confirmed Chronic kidn ey disease due to hypertension (291580001790796) Problem Moderate persistent asthma, uncomplicated (J45.40) Active confirmed Uncomplicated moderate persistent asthma (627359731) Problem Chronic kidney disease, stage 2 (mild) (N18.2) Active confirmed Chronic kidne y disease stage 2 (173736169) Problem Proteinuria, unspecified (R80.9) Active confirmed Proteinuria (07825952) Problem Other nonspecific abnormal finding of lung field (R91.8) Active confirmed Lung field abnormal (429864164) Problem Irritable bowel syndrome with constipation (K58.1) Active confirmed Irritable bowel syndrome characterized by constipation (784269954) Problem Prediabetes (R73.03) Active confirmed Prediabetes (988115851) Problem Elevated high sensitivity C-reactive protein (R79.82) Active confirmed C-reactive protein abnormal (403841483) Problem Polyarthralgia (M25.50) Active confirmed Polyarthralgia (80130734) Problem Increased liver enzymes (R74.8) Active confirmed Laboratory t est result abnormal (047893263) Problem GERD without esophagitis (K21.9) Active confirmed Gastroesophagea l reflux disease (336151202) Problem Insulin resistance syndrome (E88.810) Active confirmed Insulin resista nce syndrome (692329116) Problem Elevated sed rate (R70.0) Active confirmed Erythrocyte sedimentation rate raised (150484607) Problem Statin intolerance (Z78.9) Active confirmed Statin not tolerated (290186712) VITAL SIGNS Heart Rate 71 /min 11/17/2023 Temperature 97.5 degrees Fahrenheit 09/22/2023 Respiratory Rate 16 /min 09/22/2023 Height-cm 171.45 cm 11/17/2023 Oximetry 95 % 11/17/2023 Blood pressure diastolic 84 mm Hg 11/17/2023 Weight-kg 97.07 kg 11/17/2023 Height 67.5 in 11/17/2023 Blood pressure systolic 138 mm Hg 11/17/2023 Weight 214 lbs 11/17/2023 BMI 33.02 kg/m2 11/17/2023 Encounters Encounter Location Date Provider Diagnosis [address] [id number] 12/08/[address] [id number] 01/11/[address] [id number] 09/22/2023 [facility] Moderate persistent asthma, uncomplicated J45.40 ; Other nonspecific abnormal finding of lung field R91.8 ; GERD without esophagitis K21.9 ; Essential (primary) hypertension I10 ; Chronic pain syndrome G89.4 ; Irritable bowel syndrome with constipation K58.1 ; Hyperlipidemia, unspecified E78.5 ; Fatigue, unspecified type R53.83 and Vitamin D deficiency E55.[address] [id number] 10/[facility] Hypertensive chronic kidney disease with stage 1 through stage 4 chronic kidney disease, or unspecified chronic kidney disease I12.9 ; Prediabetes R73.03 ; Chronic kidney disease, stage 2 (mild) N18.2 ; Proteinuria, unspecified R80.9 ; Hyperlipidemia, unspecified E78.5 ; Increased liver enzymes R74.8 ; Elevated high sensitivity C-reactive protein R79.82 ; Elevated sed rate R70.0 ; Insulin resistance syndrome E88.810 ; Statin intolerance Z78.9 and Polyarthralgia M25.[address] [id number] 11/17/2023 [facility] Polyarthralgia M25.5 0 and Chronic pain syndrome G89.[address] [id number] 11/21/2023 [facility] Encounter Date Diagnosis Assessment Notes Treatment Notes Treatment Clinical Notes Section Notes 09/22/2023 Moderate persistent asthma, uncomplicated (ICD-10 - J45.40) Per pt the BID inhaler (she does not recall what it is) does nothing for her so she only takes once a day Currently [place] but wants to go back to Dr Villasenor as more convenient Discussed need for maintenance Uses albuterol prn 09/22/2023 Other nonspecific abnormal finding of lung field (ICD-10 - R91.8) Per pt sees pulm with yearly chest CT due to multiple pulmonary nodules Pt transferring care to new pulm but will see previous pulm one more time as just had chest CT 10/20/2023 Hypertensive chronic kidney disease with stage 1 through stage 4 chronic kidney disease, or unspecified chronic kidney disease (ICD-10 - I12.9) Continue medications Strict BP control <140/80 Limit sodium Weight management Exercise as tolerated Renal dose all meds 10/20/2023 Prediabetes (ICD-10 - R73.03) Discuss insulin resistence, elevated blood sugar levels and the need to prevent progression of disease She does not like to take meds Consider professor of practice Intermittent fasting Exercise as tolerated as has chronic pain 11/17/2023 Chronic pain syndrome (ICD-10 - G89.4) 11/17/2023 Polyarthralgia (ICD-10 - M25.50) Chronic pain with polyarthralgia/my algias present Discussed all PHILLIP studies normal Discussed at length benefits of cymbalta Pt struggles with med compliance as always reads inserts and does not want to continue due to side effects Discussed risks vs benefits Will re-eval in 4-5 weeks 10/20/2023 Chronic kidney disease, stage 2 (mild) (ICD-10 - N18.2) Discussed hydration Minimize ibuprofen Renal dose all meds Strict BP control 09/22/2023 GERD without esophagitis (ICD-10 - K21.9) fairly well controlled on current med regimen Continue to limit caffeine, high fat, spicy foods Limit ibuprofen/NSAIDs 10/20/2023 Proteinuria, unspecified (ICD-10 - R80.9) Discussed hydration Minimize ibuprofen Renal dose all meds Strict BP control 09/22/2023 Essential (primary) hypertension (ICD-10 - I10) Continue medication as directed Low-salt diet Weight management Regular exercise Yearly microalbumin 09/22/2023 Chronic pain syndrome (ICD-10 - G89.4) Pt sees rheumatology, dx with bursitis with injections Also has seen pain management for her back pain Acc to pt has seen multiple doctors and nothing has helped Question disc disease for which pt unsure if she has ever had an MRI as she has left leg numbness and tingling 10/20/2023 Hyperlipidemia, unspecified (ICD-10 - E78.5) Pt is unable to take statin due to leg pain and weakness also has baseline elevated liver function tests Discussed Repatha Will order Discussesd lifestyle changes Noted pt also has family history of cardiac disease/ 10/20/2023 Increased liver enzymes (ICD-10 - R74.8) Reviewed GI notes in [facility] Known history but ? 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 will continue to monitor 09/22/2023 Irritable bowel syndrome with constipation (ICD-10 - K58.1) Currently seeing new GI s/o colectomy secondary to diverticulitis States still struggles with symptoms 09/22/2023 Hyperlipidemia, unspecified (ICD-10 - E78.5) Discussed lowing lipid levels with diet Low inflammatory, Mediterranean diet Exercise as tolerated Control weight 10/20/2023 Elevated high sensitivity C-reactive protein (ICD-10 - R79.82) Discussed int fasting Low inflammatory diet Exericse as tolerated 09/22/2023 Fatigue, unspecified type (ICD-10 - R53.83) Will check labs assessing for any anemia, thyroid dysfunction Maintain healthy diet, adequate fluid intake Exercise regularly 10/20/2023 Elevated sed rate (ICD-10 - R70.0) ? rheumatic cause Checking panel today 09/22/2023 Vitamin D deficiency (ICD-10 - E55.9) Increase Vit D rich foods Check levels periodically Supplement as indicated 10/20/2023 Insulin resistance syndrome (ICD-10 - E88.810) Discuss insulin resistence, elevated blood sugar levels and the need to prevent progression of disease She does not like to take meds Consider professor of practice Intermittent fasting Exercise as tolerated as has chronic pain 10/20/2023 Statin intolerance (ICD-10 - Z78.9) As above, will order repatha for lipid management 10/20/2023 Polyarthralgia (ICD-10 - M25.50) Will check full rheumatoid panel today Pt's clinical picture consistent with disorder 09/22/2023 Other New patient welcomed to [facility] and complete intake was obtained. Patient handbook reviewed and signed receipt. Time spent with patient >70 minutes which included medication reconciliation, review of office policies and procedures, review of medical and family history, and discussion/exam with provider. 10/20/2023 Other Total time spen t with patient 32 minutes which includes face to face visit, education and coordination of care. 11/17/2023 Other Noted pt also has healing right wrist injury s/p fall with minimal swelling lateral aspect. Full mobiltiy, yellow healing ecyymosis. Total time spent with patient 20 minutes which includes face to face visit, education and coordination of care. PLAN OF TREATMENT No Information Insurance Providers Payer Name Payer Address Payer Phone Subscriber Number Group Number Insured Name Patient Relationship to Insured Coverage Start Date Coverage End Date [facility] MEDICARE ADVANTAGE [address] [place] [address] [phone] [id number] STEWART LOEPZ Self - patient is the insured MEDICAL (GENERAL) HISTORY Medical History History ICD Code Arthritis Asthma Diverticulosis Gallbladder Disease GERD Hypertension Hip Fracture Surgical History Surgery Date(Month/Year) Appendectomy Colonoscopy Cholecystectomy Hysterectomy Pulmonary Function Test 2022 Stress Test Bladder Suspension Colectomy - 1/2 removed Tonsillectomy/Adenoidectomy [place] [facility]
--- OUTSIDE RECORDS SUMMARY | 2024-09-21 14:58 | XMS_ITS ---
Author Organization [facility] Address [address] [place], [place] [id number] Care Team Providers Care Medical Clinic Manager Name Role Phone RACHEL CAVAZOS Primary Care Provider [phone] [facility] CHARY HUA Unavailable [phone] REASON FOR VISIT CPE Encounters Encounter Location Date Provider Diagnosis [facility], [address] [phone] 01/11/2024 CHARY HUA PLAN OF TREATMENT No Information Progress Notes * STEWART LOPEZDOB:1950 (74 yo F)Acc No.[id number]:01/11/2024 Progress Note Patient:??STEWART LOPEZ Provider:??CHARY HUA NP :1950?Age:73 Y?Sex:Fe male Date:01/11/2024 Phone: Address:[address], [address], [place] Pcp:RACHEL CAVAZOS Subjective: * Chief Complaints: * ?1. CPE. * Medical History:?? Objective: Assessment: Plan: * Treatment: Care Plan: * Problems:?? * Billing Information: * Visit Code:?? * Procedure Codes:?? * Sign off status: Pending * Provider:??CHARY HUA NP Date:??
--- OUTSIDE RECORDS SUMMARY | 2024-09-21 14:58 | XMS_ITS | Encounter Summary ---
Author Organization [facility] Address [address] [place] [address] Care Team Providers Care Crop Grain Or Livestock Farmer Name Role Phone Lawrence Gary MD Primary Care Provider [phone] Encounter Details Date Type Department Care Team (Late st Contact Info) Description 10/11/2016 Scanned Document [address] [place] [phone] Provider, Generic Social History Tobacco Use Types [...] on filedocumented in this encounter Care Teams Crop Grain Or Livestock Farmer Relationship Specialty Start Date End Date Lawrence Gary MD [address] [place] [address] PCP - General Psychiatry, General 10/18/16 documented as of this encounter
--- OUTSIDE RECORDS SUMMARY | 2024-09-21 14:58 | XMS_ITS | Encounter Summary ---
Author Organization [facility] Address [address] [facility] 7 [place] [address] Care Team Providers Care Energy Systems Laboratory Director Name Role Phone Unavailable Primary Care Provider [...]
--- OUTSIDE RECORDS SUMMARY | 2024-09-21 14:58 | XMS_ITS | Encounter Summary ---
Author Organization [facility] Address [address] [place] [address] Care Team Providers Care Metallurgical Or Materials Technician Name Role Phone Lawrence Gary MD Primary Care Provider [phone] Encounter Details Date Type Department Care Team (Late st Contact Info) Description 08/24/2016 Scanned Document [address] [place] [phone] Provider, Generic Social History Tobacco Use Types [...] on filedocumented in this encounter Care Teams Metallurgical Or Materials Technician Relationship Specialty Start Date End Date Lawrence Gary MD [address] [place] [address] PCP - General Psychiatry, General 10/18/16 documented as of this encounter
--- OUTSIDE RECORDS SUMMARY | 2024-09-21 14:58 | XMS_ITS | Clinical Summary ---
Author Organization [address] [facility] Address [address] [place] [address] Phone Care Team Providers Care Compliance Testing Analyst Name Role Phone Fabiola Mike MICHELLE Primary Care Provider [phone] Allergies Active Allergy Reactions Criticality Noted Date Comments Codeine 06/20/2017 Colesevelam Hcl 07/16/2020 Gluten Nausea And Vomiting High 07/01/2017 Lactose Nausea And Vomiting Medium 07/01/2017 Latex Medium 11/10/2016 Other Reaction(s): Rash/Dermatitis Other 07/16/2020 Kdc:Red Dye+Simvastatin-High Dose Pt states she gets a lot of pain when she takes this medication . Oxycodone-Acetaminophen Nausea And Vomiting Medium 07/2017 Rosuvastatin Calcium 07/16/2020 Pt states she gets a lot of pain from taking this medication Medications losartan (COZAAR) 100 mg tablet Take 1 tablet (100 mg total) by mouth 1 (one) time each day. 3 Active amLODIPine (NORVASC) 10 mg tablet Take 1 tablet (10 mg total) by mouth 1 (one) time each day. Active omeprazole (PriLOSEC) [address] capsule 10 mg 1 (one) time each day. 1 Active cholecalcifero l (VITAMIN D-3) 50 mcg (2,000 unit) capsule Take 1 capsule by mouth. Patient taking 50mcg everyotherday 1 Active acetaminophen (TYLENOL 8 HOUR ORAL) Take 600 mg by mouth if needed. Active sucralfate (CARAFATE) 100 mg/mL suspension Take 10 mL (1 g total) by mouth 4 (four) times a day. Active albuterol 2.5 mg /3 mL (0.083 %) nebulizer solution Take 1 Vial by nebulization every 6 hours as needed for Wheezing, Shortness of Breath or Cough. J45.909 9 Active albuterol HFA (PROAIR HFA ; PROVENTIL HFA ; VENTOLIN HFA) 90 mcg/actuation inhaler Inhale 2 Puffs into the lungs every 4 hours as needed for Cough or Wheezing 9 Active ibuprofen (ADVIL,MOTRIN) 800 mg tablet Take 600 mg by mouth every 8 (eight) hours if needed. Active linaCLOtide (LINZESS) 290 mcg capsule Take 1 tablet by mouth if needed. Active Active Problems Problem Noted Date Diagnosed Date Chest pain 07/16/2020 Overview (09/17/2024): Last Assessment & Plan: Patient does not complain of any recent chest pain today. We discussed the results of her pharmacologic nuclear stress test and that is reassuring. For her ongoing shortness of breath, she has pulmonary follow up in January. She will continue on her current medication regimen and call the office if she has any new or worsening symptoms. Otherwise, she will follow up with Dr. Mendoza in the clinic in six months. Hyperlipidemia 07/16/2020 Overview (09/17/2024): Last Assessment & Plan: The patient has a history of hyperlipidemia. Her most recent lipid panel on my review shows total cholesterol of 200, triglycerides 223, HDL 50, and LDL 105. She previously had a 12% 10-year ASCVD risk; therefore she was started on Zetia as she is statin intolerant. Her PCP has discontinued the Zetia due to side effect profile. Will continue to monitor and she will work on diet and lifestyle modifications. Hypertension 07/16/2020 Overview (09/17/2024): Last Assessment & Plan: The patient has a history of hypertension. Her antihypertensive medications are managed by the patient's assembler body whom she sees on a regular basis. assembler body next month. The patient was instructed to continue to monitor her blood pressure at home. Dyspnea 07/15/2020 Moderate persistent asthma 07/15/2020 Asthma 07/09/2017 Diverticulitis 07/09/2017 Lung nodules 07/09/2017 Immunizations Name Administration Dates Next Due Influenza Quadravalent, MDCK , 0.5ml, preservative free (Flucelvax) 6mo and older 07/17/2018 Medical History Medical History Date Comments Asthma 07/09/2017 DX:Asthma Lung nodules 07/09/2017 DX:Lung nodules Diverticulitis 07/09/2017 DX:Diverticuliti s Moderate persistent asthma 07/15/2020 DX:Mo derate persistent asthma Dyspnea 07/15/2020 DX:Dyspnea Family history of cardiovasc ular disease DX:Family history of cardiov ascular disease Hypercholesterolemia DX:Hypercho lesterolemia Essential hypertension DX:Essent ial hypertension Chest pain 07/16/2020 Last Assessment & Plan: Patient does not complain of any recent chest pain today. We discussed the results of her pharmacologic nuclear stress test and that is reassuring. For her ongoing shortness of breath, she has pulmonary follow up in January. She will continue on her current medication regimen and call the office if she has any new or worsening symptoms. Otherwise, she will follow up with * Hypertension 07/16/2020 Last Assessment & Plan: The patient has a history of hypertension. Her antihypertensive medications are managed by the patient's assembler body whom she sees on a regular basis. assembler body next month. The patient was instructed to continue to monitor her blood pressure at home. Social History Tobacco Use Types Packs/Day Years Used Date Smoking Tobacco: Former Cigarettes 2.5 5 0 08/01/1966 - 08/01/1971 Smokeless Tobacco: Former Alcohol Use Standard Drinks/Week Comments Yes 1 (1 standard drink = 0.6 oz pur e alcohol) Comments Unknown Sex and Gender Information Value Date Recorded Sex Assigned at Not on file Legal Sex Female 5:16 AM EST Gender Identity Not on file Sexual Orientation Not on file Obstetrics History Plan of Treatment Upcoming Encounters Date Type Department Care Team (Late st Contact Info) Description 10/26/2024 1:30 PM EDT Consult Gastroenterology - [place] [facility] [address] [facility] [address] [place] [phone] Marianna Lawler MD [address] [facility] [address] [place] [address] Health Maintenance Due Date Last Done Comments Breast Cancer Screening 1950 DTaP,Tdap,and Td Vaccines (1 - Tdap) 1969 Pneumococcal Vaccine: 50+ Ye ars (1 of 2 - PCV) 1969 Zoster Vaccines (1 of 2) 2000 RSV Immunization Patients 60 + Years Old (1 - Risk 60-74 years 1-dose series) 2010 COVID-19 Vaccine (1 - 2023-2 5 season) 2024 Influenza Vaccine (#1) 2024 07/17/2018 Cholesterol Screening (Lipid Panel) 09/14/2024 Colorectal Cancer Screening: Colonoscopy 09/14/2024 Depression Screening 09/14/2024 Falls Risk Assessment 09/14/2024 Hepatitis C Screening 09/14/2024 Hypertension/CHF/CAD Annual BMP Blood Test 09/14/2024 Medicare Annual Wellness Visit 09/14/2024 Osteoporosis Screening (Bone Density Screening) 09/14/2024 Social Influencers of Health Screening 09/14/2024 HIB Vaccines Aged Out No longer eligi [...] on patient's age to complete this topic MMR Vaccines Aged Out No longer eligi ble based on patient's age to complete this topic Meningococcal ACWY Vaccine Aged Out N o longer eligible based on patient's age to complete this topic Meningococcal B Vacine Aged Out No lo nger eligible based on patient's age to complete this topic RSV Immunization Patients Un chandrika 20 months Aged Out No longer eligible b ased on patient's age to complete this topic Varicella Vaccines Aged Out No longer eligible based on patient's age to complete this topic Insurance Advance Directives Documents on File Type Date Recorded Patient Clay Roaster Expl anation Health Care Decision (hx) 07/23/2011 AD RENEE DIRECTIVE Health Care Decision (hx) 07/23/2011 AD RENEE DIRECTIVE Health Care Decision (hx) 07/23/2011 AD RENEE DIRECTIVE Health Care Decision (hx) 07/23/2011 AD RENEE DIRECTIVE Care Teams Compliance Testing Analyst Relationship Specialty Start Date End Date Fabiola Mike NP [address] [facility] [address] [place] [phone] PCP - General Primary Care 09/14/24
--- OUTSIDE RECORDS SUMMARY | 2024-09-21 14:58 | XMS_ITS | Encounter Summary ---
Author Organization [facility] Address [address] [place] [address] Care Team Providers Care Staff Forester Name Role Phone Lawrence Gary MD Primary Care Provider [phone] Encounter Details Date Type Department Care Team (Late st Contact Info) Description 10/21/2000 Scanned Document [facility] Colorectal Surgery [address] [place] [address] Provider, MD Qasim [address] [place] [address] Social History Tobacco Use Types Packs/Day Years Used Date Smoking Tobacco: Never Assessed Sex and Gender Information Value Date Recorded Sex Assigned at Not on file Gender Identity Not on file Sexual Orientation Not on file documented as of this encounter Plan of Treatment Not on file documented as of this encounter Visit Diagnoses Not on filedocumented in this encounter Care Teams Staff Forester Relationship Specialty Start Date End Date Lwarence Gary MD [address] [place] [address] PCP - General Psychiatry, General 10/18/16 documented as of this encounter
--- OUTSIDE RECORDS SUMMARY | 2024-09-21 14:58 | XMS_ITS | Encounter Summary ---
Author Organization [employer] [facility] Address [address] [place] [address] [place] [address] Care Team Providers Care Rn Ostomy Name Role Phone Unavailable Primary Care Provider [...]
--- OUTSIDE RECORDS SUMMARY | 2024-09-21 14:58 | XMS_ITS | Encounter Summary ---
Author Organization [facility] Address [address] [place] [address] Care Team Providers Care Slag Dumper Name Role Phone Lawrence Gary MD Primary Care Provider [phone] Encounter Details Date Type Department Care Team (Late st Contact Info) Description 08/23/2000 Scanned Document [facility] Colorectal Surgery [address] [place] [address] Provider, Qasim, [address] [place] [address] Social History Tobacco Use Types Packs/Day Years [...] on filedocumented in this encounter Care Teams Slag Dumper Relationship Specialty Start Date End Date Lawrence Gary MD [address] [place] [address] PCP - General Psychiatry, General 10/18/16 documented as of this encounter
--- OUTSIDE RECORDS SUMMARY | 2024-09-21 14:58 | XMS_ITS | Clinical Summary ---
Author Organization [employer] Address [address] [facility] 7t [place] [address] Care Team Providers Care Armed Security Guard Name Role Phone Unavailable Primary Care Provider [...] Vaccines (1 - Tdap) 1969 Mammogram 1990 Pneumococcal Vaccine: 50+ Ye ars (1 of 1 - PCV) 2000 Zoster Vaccines (1 of 2) 2000 COVID-19 Vaccine ( - 2023-2 5 season) [...]
--- OUTSIDE RECORDS SUMMARY | 2024-09-21 14:58 | XMS_ITS ---
Author Organization [facility] Address [address] [place], [place] [phone] Care Team Providers Care Concrete Mixing Plant Superintendent Name Role Phone RACHEL CAVAZOS Primary Care Provider [phone] [facility] CHARY HUA Unavailable [phone] REASON FOR VISIT Wrist sprain/pain Encounters Encounter Location Date Provider Diagnosis [facility], [address] [phone] 12/08/2023 CHARY HUA PLAN OF TREATMENT No Information Progress Notes * JOHNYVONNEANTHONYDOB:1950 (74 yo F)Acc No.[id number]:12/08/2023 Progress Notes Patient:??STEWART LOPEZ Provider:??CHARY HUA NP :1950?Age:73 Y?Sex:Fe male Date:12/08/2023 Phone: Address:[address], [place] Pcp:RACHEL CAVAZOS Subjective: * Chief Complaints: * [...]
--- OUTSIDE RECORDS SUMMARY | 2024-09-21 14:58 | XMS_ITS | Encounter Summary ---
Author Organization [facility] Address [address] [place] [address] Care Team Providers Care Newspaper Press Operator Apprentice Name Role Phone Lawrence Gary MD Primary Care Provider [phone] Encounter Details Date Type Department Care Team (Late st Contact Info) Description 07/06/2006 Scanned Document [address] [place] [phone] Provider, Generic Social History Tobacco Use Types [...] on filedocumented in this encounter Care Teams Newspaper Press Operator Apprentice Relationship Specialty Start Date End Date Lawrence Gary MD [address] [place] [address] PCP - General Psychiatry, General 10/18/16 documented as of this encounter
--- OUTSIDE RECORDS SUMMARY | 2024-09-21 14:59 | XMS_ITS | Encounter Summary ---
Author Organization [facility] Address [address] [place] [address] Care Team Providers Care Zinc Miner Name Role Phone Lawrence Gary MD Primary Care Provider [phone] Encounter Details Date Type Department Care Team (Late st Contact Info) Description 2017 Scanned Document [facility] Colorectal Surgery [address] [place] [address] Lawrence Gary MD [address] [place] [address] Social History Tobacco Use Types Packs/Day Years [...] on filedocumented in this encounter Care Teams Zinc Miner Relationship Specialty Start Date End Date Lawrence Gary MD [address] [place] [address] PCP - General Psychiatry, General 10/18/16 documented as of this encounter
--- OUTSIDE RECORDS SUMMARY | 2024-09-21 14:59 | XMS_ITS | Encounter Summary ---
Author Organization [facility] Address [address] [place] [address] Care Team Providers Care Pecan Cleaner Name Role Phone Lawrence Gary MD Primary Care Provider [phone] Encounter Details Date Type Department Care Team (Late st Contact Info) Description 10/25/2023 Scanned Document [facility] Pulmonary [address] [place] [phone] Pulmonary, Scan Social History Tobacco Use Types [...] on filedocumented in this encounter Care Teams Pecan Cleaner Relationship Specialty Start Date End Date Lawrence Gary MD [address] [place] [address] PCP - General Psychiatry, General 10/18/16 documented as of this encounter
--- OUTSIDE RECORDS SUMMARY | 2024-09-21 14:59 | XMS_ITS | Clinical Summary ---
Author Organization [facility] Address [address] [place] [address] Care Team Providers Care Setter Automatic Spinning Lathe Name Role Phone Lawrence Gary MD Primary Care Provider [phone] Allergies Active Allergy Reactions Criticality Noted Date [...] Documents on File Type Date Recorded Patient Solar Photovoltaic Crew Lead Expl anation Advance Directive-Scan 06/07/2017 * Full Code (Latest Code Status on File) Date Activated Date Inactivated Comments 06/27/2017 5:44 PM * Full Code Date Activated Date Inactivated Comments 06/27/2017 8:25 AM 06/27/2017 5:44 PM Care Teams Setter Automatic Spinning Lathe Relationship Specialty Start Date End Date Lawrence Gary MD [address] [place] [address] PCP - General Psychiatry, General 10/18/16
--- OUTSIDE RECORDS SUMMARY | 2024-09-21 14:59 | XMS_ITS | Encounter Summary ---
Author Organization [facility] Address [address] [place] [address] Care Team Providers Care Polymer Chemist Name Role Phone Lawrence Gary MD Primary Care Provider [phone] Encounter Details Date Type Department Care Team (Late st Contact Info) Description 04/19/2017 Scanned Document [facility] Colorectal Surgery [address] [place] [address] Provider, MD Qasim [address] [place] [address] Social History Tobacco Use Types Packs/Day Years [...] on filedocumented in this encounter Care Teams Polymer Chemist Relationship Specialty Start Date End Date Lawrence Gary MD [facility] [place] [address] PCP - General Psychiatry, General 10/18/16 documented as of this encounter
== END 2024-09-21 15:21 | disposition home or self-care (01) ==
PROVIDERS: PCP Family Medicine; Visit Provider Hospitalist
DX: J44.9 Chronic obstructive pulmonary disease, unspecified (principal); R91.8 Other nonspecific abnormal finding of lung field; M35.01 Sjogren syndrome with keratoconjunctivitis; R06.09 Other forms of dyspnea; J98.11 Atelectasis; J45.40 Moderate persistent asthma, uncomplicated; R07.89 Other chest pain
CPT/HCPCS: 99214

== ENCOUNTER → 2024-09-21 14:40 | Outpatient (REF) | payer MEDICARE, SELFPAY ==
--- OUTSIDE RECORDS SUMMARY | 2024-09-21 15:27 | XMS_ITS | Encounter Summary ---
Author Organization [facility]ly [facility] Address [address] [place] [address] Care Team Providers Care Security Support Analyst Name Role Phone Lawrence Gary MD Primary Care Provider [phone] Encounter Details Date Type Department Care Team (Late st Contact Info) Description 07/09/2014 Scanned Document [address] [place] [phone] Provider, Generic Social History Tobacco Use Types [...] on filedocumented in this encounter Care Teams Security Support Analyst Relationship Specialty Start Date End Date Lawrence Gary MD [address] [place] [address] PCP - General Psychiatry, General 10/18/16 documented as of this encounter
--- OUTSIDE RECORDS SUMMARY | 2024-09-21 15:27 | XMS_ITS | Encounter Summary ---
Author Organization [facility] Address [address] [place] [address] Care Team Providers Care Motorcycle Maker Name Role Phone Lawrence Gary MD Primary Care Provider [phone] Encounter Details Date Type Department Care Team (Late st Contact Info) Description 07/06/2006 Scanned Document [address] [place] [phone] Provider, Generic Social History Tobacco Use Types [...] on filedocumented in this encounter Care Teams Motorcycle Maker Relationship Specialty Start Date End Date Lawrence Gary MD [address] [place] [address] PCP - General Psychiatry, General 10/18/16 documented as of this encounter
--- OUTSIDE RECORDS SUMMARY | 2024-09-21 15:27 | XMS_ITS | Encounter Summary ---
Author Organization Formerly [facility] Address [address] [place] [address] Care Team Providers Care Gasket Inspector Name Role Phone Lawrence Gary MD Primary Care Provider [phone] Encounter Details Date Type Department Care Team (Late st Contact Info) Description 2017 Scanned Document [facility] Colorectal Surgery [address] [place] [address] Lawrence Gary MD [address] [place] [address] Social History Tobacco Use Types Packs/Day Years [...] on filedocumented in this encounter Care Teams Gasket Inspector Relationship Specialty Start Date End Date Lawrence Gary MD [address] [place] [address] PCP - General Psychiatry, General 10/18/16 documented as of this encounter
--- OUTSIDE RECORDS SUMMARY | 2024-09-21 15:27 | XMS_ITS | Encounter Summary ---
Author Organization [facility] Address [address] [place] [address] Care Team Providers Care Circuit Board Repair Technician Name Role Phone Lawrence Gary MD Primary Care Provider [phone] Encounter Details Date Type Department Care Team (Late st Contact Info) Description 08/04/2007 Scanned Document [facility] Colorectal Surgery [address] [place] [address] Provider, Qasim, [address] [place] [address] Social History Tobacco Use Types Packs/Day Years [...] on filedocumented in this encounter Care Teams Circuit Board Repair Technician Relationship Specialty Start Date End Date Lawrence Gary MD [address] [place] [address] PCP - General Psychiatry, General 10/18/16 documented as of this encounter
--- OUTSIDE RECORDS SUMMARY | 2024-09-21 15:27 | XMS_ITS | Clinical Summary ---
Author Organization [facility] Address [address] [place] [address] Phone Care Team Providers Care Gas Check Pad Maker Name Role Phone Duran Gomez MD Primary [...] Visit [facility] [address] [place] [address] Jude Pinto MD [address] [address] Health Maintenance Due Date Last Done Comments Breast Cancer Screening 1950 Pneumococcal Vaccine: 65+ Ye ars (1 of 2 - PCV) 1956 Colorectal Cancer Screening: Annual FOBT 1999 Colorectal Cancer Screening: Colonoscopy 1999 Colorectal Cancer Screening: Sigmoidoscopy 1999 Influenza Vaccine (#1) 2024 06/01/2020 Hepatitis B Vaccine Aged Out No longe r eligible based on patient's age to complete this topic Insurance [facility] Care Teams Gas Check Pad Maker Relationship Specialty Start Date End Date Duarn Gomez MD [address] [place] [address] PCP - General Family Medicine 12/29/23
--- OUTSIDE RECORDS SUMMARY | 2024-09-21 15:27 | XMS_ITS | Encounter Summary ---
Author Organization [facility] Address [address] [place] [address] Care Team Providers Care Feather Separator Name Role Phone Lawrence Gary MD Primary Care Provider [phone] Encounter Details Date Type Department Care Team (Late st Contact Info) Description 02/07/2014 Scanned Document [address] [place] [phone] Provider, Generic Social History Tobacco Use Types [...] on filedocumented in this encounter Care Teams Feather Separator Relationship Specialty Start Date End Date Lawrence Gary MD [address] [place] [address] PCP - General Psychiatry, General 10/18/16 documented as of this encounter
--- OUTSIDE RECORDS SUMMARY | 2024-09-21 15:27 | XMS_ITS | Encounter Summary ---
Author Organization [facility] Address [address] [place] [address] Care Team Providers Care Professor Of English Name Role Phone Lawrence Gary MD Primary Care Provider [phone] Encounter Details Date Type Department Care Team (Late st Contact Info) Description 10/19/2000 Scanned Document [facility] Colorectal Surgery [address] [place] [address] Provider, Qasim, [address] [place] [address] Social History Tobacco Use Types Packs/Day Years [...] on filedocumented in this encounter Care Teams Professor Of English Relationship Specialty Start Date End Date Lawrence Gary MD [address] [place] [address] PCP - General Psychiatry, General 10/18/16 documented as of this encounter
--- OUTSIDE RECORDS SUMMARY | 2024-09-21 15:27 | XMS_ITS | Encounter Summary ---
Author Organization [facility] Address [address] [place] [address] [place] [address] Care Team Providers Care Gaming Cage Cashier Name Role Phone Unavailable Primary Care Provider [...]
--- OUTSIDE RECORDS SUMMARY | 2024-09-21 15:27 | XMS_ITS | Clinical Summary ---
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 supervisor [employer] stock[employer] next month. The patient was instructed to [...] antihypertensive medications are managed by the patient's supervisor [employer] stock[employer] whom she sees on a regular basis. supervisor [employer] stock[employer] next month. The patient was instructed to [...] 10/26/2024 1:30 PM EDT Consult [facility] [place] [address] [facility] 175 [facility] [address] [place] [phone] Marianna Lawler MD [address] [place] [facility] [address] [place] [address] Health Maintenance Due Date Last Done Comments [...] Documents on File Type Date Recorded Patient Cafe Site Attendant Expl anation Health Care Decision (hx) 07/23/2011 AD RENEE DIRECTIVE Health Care Decision (hx) 07/23/2011 AD RENEE DIRECTIVE Health Care Decision (hx) 07/23/2011 AD RENEE DIRECTIVE Health Care Decision (hx) 07/23/2011 AD RENEE DIRECTIVE Care Teams Gate Operator Relationship Specialty Start Date End Date Fabiola Mike NP [address] [facility] 1 [place] [address] PCP - General Primary Care 09/14/24
--- OUTSIDE RECORDS SUMMARY | 2024-09-21 15:27 | XMS_ITS | Clinical Summary ---
Author Organization [employer] Address [address] [facility] 7t [place] [address] Care Team Providers Care Event Marketing Intern Name Role Phone Unavailable Primary Care Provider [...]
--- OUTSIDE RECORDS SUMMARY | 2024-09-21 15:27 | XMS_ITS | Encounter Summary ---
Author Organization [facility] Address [address] [place] [address] Care Team Providers Care Recorder Gravity Prospecting Name Role Phone Lawrence Gary MD Primary Care Provider [phone] Encounter Details Date Type Department Care Team (Late st Contact Info) Description 08/24/2016 Scanned Document [address] [place] [phone] Provider, Generic Social History Tobacco Use Types [...] on filedocumented in this encounter Care Teams Recorder Gravity Prospecting Relationship Specialty Start Date End Date Lawrence Gary MD [address] [place] [address] PCP - General Psychiatry, General 10/18/16 documented as of this encounter
--- OUTSIDE RECORDS SUMMARY | 2024-09-21 15:27 | XMS_ITS | Encounter Summary ---
Author Organization [facility] Address [address] [place] [address] Care Team Providers Care Backwinder Name Role Phone Lawrence Gary MD Primary Care Provider [phone] Encounter Details Date Type Department Care Team (Late st Contact Info) Description 10/25/2023 Scanned Document [facility] Pulmonary [address] [place] [phone] Pulmonary, Scan Social History Tobacco Use Types [...] on filedocumented in this encounter Care Teams Backwinder Relationship Specialty Start Date End Date Lawrence Gary MD [address] [place] [address] PCP - General Psychiatry, General 10/18/16 documented as of this encounter
--- OUTSIDE RECORDS SUMMARY | 2024-09-21 15:27 | XMS_ITS | Encounter Summary ---
Author Organization [facility] Address [address] [place] [address] Care Team Providers Care Manager Inspection Name Role Phone Lawrence Gary MD Primary Care Provider [phone] Encounter Details Date Type Department Care Team (Late st Contact Info) Description 10/11/2016 Scanned Document [address] [place] [phone] Provider, Generic Social History Tobacco Use Types [...] on filedocumented in this encounter Care Teams Manager Inspection Relationship Specialty Start Date End Date Lawrence Gary MD [address] [place] [address] PCP - General Psychiatry, General 10/18/16 documented as of this encounter
--- OUTSIDE RECORDS SUMMARY | 2024-09-21 15:27 | XMS_ITS | Encounter Summary ---
Author Organization [facility] Address [address] [place] [address] Care Team Providers Care Shirt Presser Name Role Phone Lawrence Gary MD Primary Care Provider [phone] Encounter Details Date Type Department Care Team (Late st Contact Info) Description 08/23/2000 Scanned Document [facility] Colorectal Surgery [address] [place] [address] Provider, Qasim, [address] [place] [address] Social History Tobacco Use Types Packs/Day Years [...] on filedocumented in this encounter Care Teams Shirt Presser Relationship Specialty Start Date End Date Lawrence Gary MD [address] [place] [address] PCP - General Psychiatry, General 10/18/16 documented as of this encounter
--- OUTSIDE RECORDS SUMMARY | 2024-09-21 15:27 | XMS_ITS | Clinical Summary ---
Author Organization [facility] Address [address] [place] [address] Care Team Providers Care Retail Salesworker Name Role Phone Lawrence Gary MD Primary Care Provider Allergies Active Allergy [...] Documents on File Type Date Recorded Patient Hotel Concierge Expl anation Advance Directive-Scan 06/07/2017 * Full Code (Latest Code Status on File) Date Activated Date Inactivated Comments 06/27/2017 5:44 PM * Full Code Date Activated Date Inactivated Comments 06/27/2017 8:25 AM 06/27/2017 5:44 PM Care Teams Retail Salesworker Relationship Specialty Start Date End Date Lawrence Gary MD [address] [place] [address] PCP - General Psychiatry, General 10/18/16
--- OUTSIDE RECORDS SUMMARY | 2024-09-21 15:27 | XMS_ITS | Encounter Summary ---
Author Organization [facility] Address [address] [place] [address] Care Team Providers Care Cat And Dog Bather Name Role Phone Lawrence Gary MD Primary Care Provider [phone] Encounter Details Date Type Department Care Team (Late st Contact Info) Description 04/21/2022 Scanned Document [facility] Pulmonary [address] [place] [phone] Pulmonary, Scan Social History Tobacco Use Types Packs/Day Years Used Date Smoking Tobacco: Former Cigarettes 2 5 1 [phone] Smokeless Tobacco: Never Alcohol Use Standard Drinks/Week [...] on filedocumented in this encounter Care Teams Cat And Dog Bather Relationship Specialty Start Date End Date Lawrence Gary MD [address] [place] [address] PCP - General Psychiatry, General 10/18/16 documented as of this encounter
--- OUTSIDE RECORDS SUMMARY | 2024-09-21 15:27 | XMS_ITS | Encounter Summary ---
Author Organization [facility] Address [address] [place] [address] Care Team Providers Care Meter Tester Primary Name Role Phone Lawrence Gary MD Primary Care Provider [phone] Encounter Details Date Type Department Care Team (Late st Contact Info) Description 10/21/2000 Scanned Document [facility] Colorectal Surgery [address] [place] [address] Provider, MD Qasim [address] [place] [address] Social History Tobacco Use Types Packs/Day Years Used Date Smoking Tobacco: Never Assessed Sex and Gender Information Value Date Recorded Sex Assigned at Not on file Gender Identity Not on file Sexual Orientation Not on file documented as of this encounter Plan of Treatment Not on file documented as of this encounter Visit Diagnoses Not on filedocumented in this encounter Care Teams Meter Tester Primary Relationship Specialty Start Date End Date Lawrence Gary MD [address] [place] [address] PCP - General Psychiatry, General 10/18/16 documented as of this encounter
--- OUTSIDE RECORDS SUMMARY | 2024-09-21 15:27 | XMS_ITS | Encounter Summary ---
Author Organization [facility] Address [address] [place] [address] Care Team Providers Care Director Graphics Name Role Phone Lawrence Gary MD Primary Care Provider [phone] Encounter Details Date Type Department Care Team (Late st Contact Info) Description 04/19/2017 Scanned Document [facility] Colorectal Surgery [address] [place] [address] Provider, MD Qasim [address] [place] [address] Social History Tobacco Use Types Packs/Day Years [...] filedocumented in this encounter Care Teams Director Graphics Relationship Specialty Start Date End Date Lawrence Gary MD [facility] [place] [address] PCP - General Psychiatry, General 10/18/16 documented as of this encounter
--- OUTSIDE RECORDS SUMMARY | 2024-09-21 15:27 | XMS_ITS | Encounter Summary ---
Author Organization [employer] [facility] Address [address] [facility] 7 [place] [address] Care Team Providers Care Pigment Furnace Tender Name Role Phone Unavailable Primary Care Provider [...]
--- NOTE | 2024-09-21 15:34 | ECG_ITS ---
Test Reason : CP Blood Pressure : */* mmHG Vent. Rate : 71 BPM Atrial Rate : 71 BPM P-R Int : 120 ms QRS Dur : 88 ms QT Int : 406 ms P-R-T Axes : 24 12 31 degrees QTcB Int : 441 ms Normal sinus rhythm Normal ECG No previous ECGs available Referred By: Yogi Villasenor Electronically Signed By: PEPE BORGES
== END ==
LOC: HO.CARD 14:40
PROVIDERS: Visit Provider Hospitalist
DX: R07.89 Other chest pain (principal)
CPT/HCPCS: 93005; 99212

== ENCOUNTER → 2024-09-21 15:34 | Outpatient (BNV) | payer MEDICARE, SELFPAY | PROVIDERS: Visit Provider Internal Medicine | DX: R07.9 Chest pain, unspecified (principal) | CPT/HCPCS: 93010 ==

== ENCOUNTER 2024-12-12 10:39 | Outpatient (AMB) | payer MEDICARE, SELFPAY ==
--- NOTE | 2024-12-12 10:41 | A.OFFVIS_ITS ---
Vital Signs 12/12/24 10:43 Height 5 ft 8 in Weight 223 lb 12.307 oz BMI 34.0 BP 160/100 H Blood Pressure Location Rt brachial Position Sitting Pulse 79 Pulse Source Pulse Oximeter Pulse Oximetry (%) 97 Oxygen Delivery Method Room Air Intake Visit Reasons: back pain Intake Note: Patent presents today for back pain follow up. Allergies acetaminophen [From PERCOCET] Allergy (Severe, Verified 12/12/24 10:42) RASH latex Allergy (Severe, Verified 12/12/24 10:42) Rash HPI HPI back pain: Details: In the last 6 days she has had acute on chronic worsening lower back pain with bilateral radiation around buttocks. Right leg has experience numbness for at least 2-3 months. Denies bowel or bladder incontinence. She went to urgent Care yesterday and received an anti-inflammatory injection ? Toradol. She was also prescribed nabumetone 500 mg twice a day, which she took twice without benefit. Since having medication from urgent care she has been able to get up from seated position without as much difficulty as she was before but she contin ues to have persistent symptoms. Lidocaine patches were ineffective. Heat did not provide relief. Denies trauma leading to onset of symptoms. She also has been experiencing increased pain in her trochanteric bursae. She is unable to get comfortable at night due to uncontrolled pain. [facility] Medical History Dyspnea Chest discomfort GERD (gastroesophageal reflux disease) RP (rectal prolapse) Hemoptysis Asthma-COPD overlap syndrome Osteopenia Atelectasis Pulmonary nodules Asthma Surgical History H/O: hysterectomy Hx of cholecystectomy Family History Mother Asthma HTN (hypertension) Cardiovascular disease Sister Asthma HTN (hypertension) Cancer Paternal Grandmother Colon cancer Social History Household Members: Spouse Both parents involved: No Caregiver staying overnight: No Housing: Apartment Are you a primary client care coordinator to a significant other at home: No Do you presently have visiting nurse or other home services: No 75 years or older and lives alone: No Alcohol intake: never Patient Tobacco Use Status: Never used Tobacco e-Cigarette/Vaping Use: Never Used service: No Current occupational status: retired Current occupational exposures/hazards: No Cognitive needs: No Hearing needs: Yes Vision needs: Yes (wear glasses) Physical Exam Vital Signs: Last Vital Signs Pulse 79 12/12/24 10:43 BP 160/100 H 12/12/24 10:43 Pulse Ox 97 12/12/24 10:43 Oxygen Delivery Method Room Air 12/12/24 10:43 BMI result Body Mass Index 34.0 Const Other: General: Comfortable Skin: No lesions seen MSK: Tender to palpate lower lumbar spinous process and paraspinal muscles. Tender SI joints. Negative ANGELO. Tender bilateral trochanteric bursae. Limited full flexion of hips due to pain. Good external rotation of bilateral hips. Limited lumbar flexion due to pain. Office Procedures AMB Joint Injection/Aspiration Coding 46188 - Bilateral Large Joint Procedure code (CPT) selection complete AMB Joint Injection/Aspiration Joint Injection/Aspiration Details: Bilateral trochanteric bursa Prep: site was prepped using aseptic technique Injected into each site: 40 mg of, Kenalog, with 1 mL of and 1% plain lidocaine Procedure: The patient tolerated the procedure well. Postprocedure protocol was discussed with patient. Coding 59219 - Bilateral Large Joint Procedure code (CPT) selection complete Office Meds lidocaine (PF) 10 mg/mL (1 %) injection solution Performing Provider: Ab Thomas MD Performing Location: [facility] Administered by: Ab Thomas MD on 12/12/24 12:39 Dose Route Admin Location Dispensed Lot Number Expiration Date [facility] Technology Risk Intern 10 mg Infiltration 2 mL [id number] [facility] Kenalog 40 mg/mL suspension for injection Performing Provider: Ab Thomas MD Performing Location: [facility] Administered by: Ab Thomas MD on 12/12/24 12:39 Dose Route Admin Location Dispensed Lot Number Expiration Date [facility] Technology Risk Intern 40 mg intrabursal 1 mL [id number] [place] [facility] lidocaine (PF) 10 mg/mL (1 %) injection solution Performing Provider: Ab Thomas MD Performing Location: [facility] Administered by: Ab Thomas MD on 12/12/24 12:39 Dose Route Admin Location Dispensed Lot Number Expiration Date [facility] Technology Risk Intern 10 mg Infiltration 2 mL [id number] [employer] Kenalog 40 mg/mL suspension for injection Performing Provider: Ab Thomas MD Performing Location: [facility] Rheumatology[facility] Administered by: Ab Thomas MD on 12/12/24 12:39 Dose Route Admin Location Dispensed Lot Number Expiration Date [facility] Technology Risk Intern 40 mg intrabursal 1 mL [id number] [place] [facility] Results Reviewed Results Reviewed: Labs from August 2024 reviewed. Assessment & Plan Assessment & Plan (1) Low back pain potentially associated with radiculopathy: Comment: I am concerned that she has lumbar pathology contributing to nerve impingement. She also had localized pain to her SI joints. Workup has been ordered. We discussed conservative management. Code(s): M54.50 - Low back pain, unspecified Category: Medical Plan: L-spine and SI joint x-ray ordered for further evaluation PT ordered for patient. She prefers to go to PT and Lane Gabapentin 300 mg t.i.d. prescribed. She will call office in a few weeks if there is no change in her back pain and radicular symptoms. I will then increase dose of gabapentin to 600 mg 3 times a day. At this time I am avoiding acetaminophen and NSAIDs due to her history of transaminitis with background hepatic steatosis. If she does not find relief on gabapentin, I will cautiously prescribe an NSAID with close monitoring of her kidney and liver function. Return to clinic in 3 months (2) Greater trochanteric bursitis of both hips: Comment: Recurrent. Last cortisone injections for bilateral trochanteric bursitis treatment were August 2024, July 2023, September 2022, August 2022, January 2022 Code(s): M70.61 - Trochanteric bursitis, right hip; M70.62 - Trochanteric bursitis, left hip Category: Medical Plan: Patient received bilateral trochanteric bursa cortisone injection (3) Transaminitis: Comment: Due to hepatic steatosis. She has had history of worsening transaminitis when she has used NSAIDs in the past. Code(s): R74.01 - Elevation of levels of liver transaminase levels Category: Medical Plan: Avoiding acetaminophen and oral NSAIDs at this time Orders: Orders XR lumbar spine 2-3V Today M54.50 - Low back pain, unspecified XR sacroiliac joint min 3V Today M54.50 - Low back pain, unspecified AMB Joint Injection/Aspiration Today M70.61 - Trochanteric bursitis, right hip, M70.62 - Trochanteric bursitis, left hip AMB Joint Injection/Aspiration Today M70.61 - Trochanteric bursitis, right hip, M70.62 - Trochanteric bursitis, left hip PT Evaluation and Treatment Today M54.50 - Low back pain, unspecified, M70.61 - Trochanteric bursitis, right hip, M70.62 - Trochanteric bursitis, left hip Medications: New gabapentin 300 mg PO TID 90 caps 2RF Coding Level of Care Code Est Pt Level 4 (56316) Complex EM visit Add On G2211 Diagnoses Low back pain potentially associated with radiculopathy M54.50 Greater trochanteric bursitis of both hips M70.61; M70.62 Transaminitis R74.01 CPT Codes Coding - 34282 - Bilateral Large Joint: 91744 - Bilateral Large Joint ([id number]) Coding - 16013 - Bilateral Large Joint: 72593 - Bilateral Large Joint ([id number])
[2024-12-12 10:43] VITALS: BP 160/100; PULSE 79; O2SAT 97; BMI 34.0
--- OUTSIDE RECORDS SUMMARY | 2024-12-12 11:42 | XMS_ITS | Clinical Summary ---
Author Organization [facility] Address [address] [place] [address] Phone Care Team Providers Care Iuss Acoustic Analyst Name Role Phone Duran Gomez MD Primary [...] needed Active cholecalciferol (VITAMIN D-3) 50 MCG (2000 UT) capsule Take by mouth 1 (one) time each day 1 Active linaCLOtide (Linzess) 290 MCG capsule Take 1 capsule by mouth 1 (one) time each day Active omeprazole (PriLOSEC) [address] capsule Take 40 mg by mouth 1 (one) time each day 1 Active sucralfate (CARAFATE) 1 GM/10ML suspension 1 Active ibuprofen (IBU) 600 MG tablet Take 600 mg by mouth every 6 (six) hours if needed for mild pain Active diphenhydrAMINE HCl, Sleep, 25 MG tablet dispersible Take by mouth Active Fish Oil-Cholecalcif dereje ([employer] FISH OIL + D3 PO) Take by mouth Active losartan (COZAAR) 100 MG tablet Take 1 tablet (100 mg total) by mouth 1 (one) time each day 90 tablet 3 5 Active amLODIPine (NORVASC) 10 MG tablet Take 1 tablet (10 mg total) by mouth 1 (one) time each day 5 Active amLODIPine (NORVASC) 5 MG tablet Take 1 tablet (5 mg total) by mouth 1 (one) time each day 90 tablet 3 5 025 Discontinued Active Problems Problem Noted Date Diagnosed Date Hypertension 11/20/2020 Hypertensive heart and renal disease with (congestive) heart failure 11/20/2020 Vitamin D deficiency 11/20/2020 Diverticulitis of large intestine 06/07/2017 Encounters Date Type Department Care Team Description 12/06/2024 2:15 PM EDT Office Visit [facility] [address] [place] [address] Jude Pinto MD Hypertension (Primary Dx) 10/31/2024 Refill [facility] [address] [address] Josephine Gomez 10/31/2024 Office Communication [facility] [address] [address] Melony Jones 10/29/2024 Orders Only [facility] [address] [address] Jude Pinto MD Hypertension 10/15/2024 Refill [facility] [address] [address] Jude Pinto MD from Last 3 Months Immunizations Immunization Administration Dates Next Due Influenza Split High [...] Sign Reading Time Taken Comments Blood Pressure 129/78 12/06/2024 2:18 PM EDT Pulse 81 12/06/2024 2:18 PM EDT Temperature - - Respiratory Rate - - Oxygen Saturation 97% 09/21/2019 12:00 PM EST Inhaled Oxygen Concentration - - Weight 98.4 kg (217 lb) 12/06/2024 2:18 PM EDT Height 172.7 cm (5' 8 ) 12/08/2020 10:03 AM EDT Body Mass Index 32.99 12/08/2020 10:03 AM EDT Plan of Treatment Upcoming Encounters Date Type Department Care Team (Late st Contact Info) Description 12/12/2025 1:00 PM EDT Office Visit [facility] [address] [place] [address] Jude Pinto MD [address] [phone] Health Maintenance Due Date Last Done Comments Breast Cancer Screening 1950 Pneumococcal Vaccine: 50+ Years (1 of 2 - PCV) 1969 Colorectal Cancer Screening: Annual FOBT 1999 Colorectal Cancer Screening: Colonoscopy 1999 Colorectal Cancer Screening: Sigmoidoscopy 1999 Influenza Vaccine (Season Ended) 2025 06/01/2020, 07/17/2018 Hepatitis B Vaccine Aged Out No longe r eligible based on patient's age to complete this topic Insurance [facility] Care Teams Iuss Acoustic Analyst Relationship Specialty Start Date End Date Duran Gomez MD [address] [place] [address] PCP - General Family Medicine 12/29/23
--- OUTSIDE RECORDS SUMMARY | 2024-12-12 11:43 | XMS_ITS | Encounter Summary ---
Author Organization [facility] Address [address] [place] [address] Care Team Providers Care Manager Client Name Role Phone Lawrence Gary MD Primary Care Provider [phone] Encounter Details Date Type Department Care Team (Late st Contact Info) Description 04/19/2017 Scanned Document [facility] Colorectal Surgery [address] [place] [address] Provider, Qasim, [address] [place] [address] Social History Tobacco Use Types Packs/Day Years Used Date Smoking Tobacco: Former Alcohol Use Standard Drinks/Week Comments Yes 0 (1 standard drink = 0.6 oz pur e alcohol) Comments Unknown Sex and Gender Information Value Date Recorded Sex Assigned at Not on file Legal Sex Female 10:17 AM EDT Gender Identity Not on file Sexual Orientation Not on file documented as of this encounter Plan of Treatment Not on file documented as of this encounter Procedures Procedure Name Priority Date/Time Associated Diagnosis Comments CT ABDOMEN+PELVIS W/CONTRAST Routine 04/19/2017 documented in this encounter Results * CT Abdomen+pelvis w/contrast (04/19/2017) Anatomical Region Laterality Modality Abdomen, Pelvis Computed Tomogra phy us External Provider MD CÁRDENAS CT ORDERABLES Final Res ult documented in this encounter Visit Diagnoses Not on filedocumented in this encounter Care Teams Manager Client Relationship Specialty Start Date End Date Lawrence Gary MD [address] [place] [address] PCP - General Psychiatry, General 10/18/16 documented as of this encounter
--- OUTSIDE RECORDS SUMMARY | 2024-12-12 11:43 | XMS_ITS | Encounter Summary ---
Author Organization [facility] Address [address] [place] [address] Care Team Providers Care Pinion And Wheel Truer Name Role Phone Lawrence Gary MD Primary Care Provider [phone] Encounter Details Date Type Department Care Team (Late st Contact Info) Description 07/09/2014 Scanned Document [address] [place] [phone] Provider, Generic Social History Tobacco Use Types [...] Narrative 07/09/2014 Ordered by an unspecified provider. us Generic Provider IMG US ORDERABLES Final Result documented in this encounter Visit Diagnoses Not on filedocumented in this encounter Care Teams Pinion And Wheel Truer Relationship Specialty Start Date End Date Lawrence Gary MD [address] [place] [address] PCP - General Psychiatry, General 10/18/16 documented as of this encounter
--- OUTSIDE RECORDS SUMMARY | 2024-12-12 11:43 | XMS_ITS | Encounter Summary ---
Author Organization [facility] Address [address] [place] [address] Care Team Providers Care Auto Locator Name Role Phone Lawrence Gary MD Primary Care Provider [phone] Encounter Details Date Type Department Care Team (Late st Contact Info) Description 08/04/2007 Scanned Document [facility] Colorectal Surgery [address] [place] [address] Provider, Qasim, [address] [place] [address] Social History Tobacco Use Types Packs/Day Years [...] (08/04/2007) Anatomical Region Laterality Modality Abdomen Ultrasound us External Provider MD CÁRDENAS US ORDERABLES Final Res ult documented in this encounter Visit Diagnoses Not on filedocumented in this encounter Care Teams Auto Locator Relationship Specialty Start Date End Date Lawrence Gary MD [address] [place] [address] PCP - General Psychiatry, General 10/18/16 documented as of this encounter
--- OUTSIDE RECORDS SUMMARY | 2024-12-12 11:43 | XMS_ITS | Encounter Summary ---
Author Organization [facility] Address [address] [place] [address] Care Team Providers Care Jewel Setter Name Role Phone Lawrence Gary MD Primary Care Provider [phone] Encounter Details Date Type Department Care Team (Late st Contact Info) Description 07/06/2006 Scanned Document [address] [phone] Provider, Generic Social History Tobacco Use Types [...] on filedocumented in this encounter Care Teams Jewel Setter Relationship Specialty Start Date End Date Lawrence Gary MD [address] [place] [address] PCP - General Psychiatry, General 10/18/16 documented as of this encounter
--- OUTSIDE RECORDS SUMMARY | 2024-12-12 11:43 | XMS_ITS | Encounter Summary ---
Author Organization [facility] Address [address] [place] [address] Care Team Providers Care Manager Medical Writing Name Role Phone Lawrence Gary MD Primary Care Provider [phone] Encounter Details Date Type Department Care Team (Late st Contact Info) Description 10/11/2016 Scanned Document [address] [place] [phone] Provider, Generic Social History Tobacco Use Types [...] Narrative 10/11/2016 Ordered by an unspecified provider. us Generic Provider IMG US ORDERABLES Final Result documented in this encounter Visit Diagnoses Not on filedocumented in this encounter Care Teams Manager Medical Writing Relationship Specialty Start Date End Date Lawrence Gary MD [address] [place] [address] PCP - General Psychiatry, General 10/18/16 documented as of this encounter
--- OUTSIDE RECORDS SUMMARY | 2024-12-12 11:43 | XMS_ITS | Encounter Summary ---
Author Organization [facility] Address [address] [place] [address] Care Team Providers Care Waterworks Employee Name Role Phone Lawrence Gary MD Primary Care Provider [phone] Encounter Details Date Type Department Care Team (Late st Contact Info) Description 2017 Scanned Document [facility] Colorectal Surgery [address] [place] [address] Lawrence Gary MD [facility] [place] [address] Social History Tobacco Use Types Packs/Day Years [...] on filedocumented in this encounter Care Teams Waterworks Employee Relationship Specialty Start Date End Date Lawrence Gary MD [address] [place] [address] PCP - General Psychiatry, General 10/18/16 documented as of this encounter
--- OUTSIDE RECORDS SUMMARY | 2024-12-12 11:43 | XMS_ITS | Clinical Summary ---
Author Organization [address] [facility] Address [address] [place] [address] Phone Care Team Providers Care Digital Imaging Specialist Name Role Phone Fabiola Mike MICHELLE Primary Care Provider [phone] Allergies Active Allergy Reactions Criticality Noted Date [...] Otherwise, she will follow up with Dr. Mednoza in the clinic in six months. Hyperlipidemia [...] antihypertensive medications are managed by the patient's client service administrator whom she sees on a regular basis. client service administrator next month. The patient was instructed to continue to monitor her blood pressure at home. Dyspnea 07/15/2020 Moderate persistent asthma 07/15/2020 Asthma 07/09/2017 Diverticulitis 07/09/2017 Lung nodules 07/09/2017 Encounters Date Type Department Care Team Description 09/18/2024 Telephone [facility] [address] [place] [address] Fabiola Mike NP Referral (Received routine paper referral - ) from Last 3 Months Immunizations Name Administration Dates Next Due Influenza [...] antihypertensive medications are managed by the patient's client service administrator whom she sees on a regular basis. client service administrator next month. The patient was instructed to [...] Care Team (Late st Contact Info) Description 06/11/2025 2:30 PM EST Office Visit [facility] [address] [place] [address] Benton Mendoza MD [address] [place] [address] [address] [place] [address] Health Maintenance Due Date Last Done Comments Breast Cancer Screening 1950 DTaP,Tdap,and Td Vaccines (1 - Tdap) 1969 Pneumococcal Vaccine: 50+ Ye ars (1 of 2 - PCV) 1969 Zoster Vaccines (1 of 2) 2000 RSV Immunization Adult Patie nts (1 - Risk 60-74 years 1-dose series) 2010 COVID-19 Vaccine (1 - 2023-2 5 season) 2024 Cholesterol Screening (Lipid Panel) 09/14/2024 Colorectal Cancer Screening: Colonoscopy 09/14/2024 Depression Screening 09/14/2024 Falls Risk Assessment 09/14/2024 Hepatitis C Screening 09/14/2024 Hypertension/CHF/CAD Annual BMP Blood Test 09/14/2024 Medicare Annual Wellness Visit 09/14/2024 Osteoporosis Screening (Bone Density Screening) 09/14/2024 Social Influencers of Health Screening 09/14/2024 Influenza Vaccine (Season Ended) 2025 07/17/20 18 HIB Vaccines Aged Out No longer eligi [...] age to complete this topic Meningococcal B Vaccine Aged Out No l onger eligible based on patient's age to complete this topic RSV Immunization Patients Un chandrika 20 months Aged Out No longer eligible b ased on patient's age to complete this topic Varicella Vaccines Aged Out No longer eligible based on patient's age to complete this topic Insurance [employer] Advance Directives Documents on File Type Date Recorded Patient Potato Peeler Expl anation Health Care Decision (hx) 07/23/2011 AD RENEE DIRECTIVE Health Care Decision (hx) 07/23/2011 AD RENEE DIRECTIVE Health Care Decision (hx) 07/23/2011 AD RENEE DIRECTIVE Health Care Decision (hx) 07/23/2011 AD RENEE DIRECTIVE Care Teams Digital Imaging Specialist Relationship Specialty Start Date End Date Fabiola Mike NP [address] [place] [address] [address] [place] [address] PCP - General Primary Care 09/14/24
--- OUTSIDE RECORDS SUMMARY | 2024-12-12 11:43 | XMS_ITS | Clinical Summary ---
Author Organization [facility] Address [address] [facility] 7t [place] [address] Care Team Providers Care Ticket Dispatcher Name Role Phone Unavailable Primary Care Provider [...]
--- OUTSIDE RECORDS SUMMARY | 2024-12-12 11:43 | XMS_ITS | Encounter Summary ---
Author Organization [facility] Address [address] [place] [address] Care Team Providers Care Tool Room Lathe Operator Name Role Phone Lawrence Gary MD Primary Care Provider [phone] Encounter Details Date Type Department Care Team (Late st Contact Info) Description 08/24/2016 Scanned Document [address] [place] [phone] Provider, Generic Social History Tobacco Use Types [...] Narrative 08/25/2016 Ordered by an unspecified provider. us Generic Provider HX AMB PROCEDURES Final Result documented in this encounter Visit Diagnoses Not on filedocumented in this encounter Care Teams Tool Room Lathe Operator Relationship Specialty Start Date End Date Lawrence Gary MD [address] [place] [address] PCP - General Psychiatry, General 10/18/16 documented as of this encounter
--- OUTSIDE RECORDS SUMMARY | 2024-12-12 11:43 | XMS_ITS | Encounter Summary ---
Author Organization [facility] Address [address] [place] [address] Care Team Providers Care Data Control Clerk Supervisor Name Role Phone Lawrence Gary MD Primary Care Provider [phone] Encounter Details Date Type Department Care Team (Late st Contact Info) Description 10/19/2000 Scanned Document [facility] Colorectal Surgery [address] [place] [address] Provider, Qasim, [address] [place] [address] Social History Tobacco Use Types Packs/Day Years [...] / tubes (10/19/2000) External Provider NURSING TREATMENT ORDERABLE S - ONCE Final Result documented in this encounter Visit Diagnoses Not on filedocumented in this encounter Care Teams Data Control Clerk Supervisor Relationship Specialty Start Date End Date Lawrence Gary MD [address] [place] [address] PCP - General Psychiatry, General 10/18/16 documented as of this encounter
--- OUTSIDE RECORDS SUMMARY | 2024-12-12 11:43 | XMS_ITS | Encounter Summary ---
Author Organization [email or web address] Address [address] [facility] 7 [place] [address] Care Team Providers Care Skill Labor Name Role Phone Unavailable Primary Care Provider [...]
--- OUTSIDE RECORDS SUMMARY | 2024-12-12 11:43 | XMS_ITS | Encounter Summary ---
Author Organization [facility] Address [address] [place] [address] Care Team Providers Care Prestressed Concrete Laborer Name Role Phone Lawrence Gary MD Primary Care Provider [phone] Encounter Details Date Type Department Care Team (Late st Contact Info) Description 02/07/2014 Scanned Document [address] [place] [phone] Provider, Generic Social History Tobacco Use Types [...] Narrative 02/07/2014 Ordered by an unspecified provider. us Generic Provider HX AMB PROCEDURES Final Result * HX GASTROENTEROLOGY COLONOSCOPY-SCAN (02/07/2014) Narrative 02/07/2014 Ordered by an unspecified provider. us Generic Provider HX AMB PROCEDURES Final Result documented in this encounter Visit Diagnoses Not on filedocumented in this encounter Care Teams Prestressed Concrete Laborer Relationship Specialty Start Date End Date Lawrence Gary MD [facility] [place] [address] PCP - General Psychiatry, General 10/18/16 documented as of this encounter
--- OUTSIDE RECORDS SUMMARY | 2024-12-12 11:43 | XMS_ITS | Encounter Summary ---
Author Organization [facility] Address [address] [facility] 7 [place] [address] Care Team Providers Care Software Computer Specialist Name Role Phone Unavailable Primary Care Provider [...]
--- OUTSIDE RECORDS SUMMARY | 2024-12-12 11:43 | XMS_ITS | Encounter Summary ---
Author Organization [facility] Address [address] [place] [address] Care Team Providers Care Power Lineman Name Role Phone Lawrence Gary MD Primary Care Provider [phone] Encounter Details Date Type Department Care Team (Late st Contact Info) Description 10/25/2023 Scanned Document [facility] Pulmonary [address] [place] [phone] Pulmonary, Scan Social History Tobacco Use Types Packs/Day Years Used Date Smoking Tobacco: Former Cigarettes 2 5 1 969 - 1974 Smokeless Tobacco: Never Alcohol Use Standard Drinks/Week Comments Yes 0 (1 standard drink = 0.6 oz pur e alcohol) occasionally Comments No Sex and Gender Information Value Date Recorded Sex Assigned at Not on file Legal Sex Female 10:17 AM EDT Gender Identity Not on file Sexual Orientation Not on file documented as of this encounter Plan of Treatment Not on file documented as of this encounter Visit Diagnoses Not on filedocumented in this encounter Care Teams Power Lineman Relationship Specialty Start Date End Date Lawrence Gary MD [address] [place] [address] PCP - General Psychiatry, General 10/18/16 documented as of this encounter
--- OUTSIDE RECORDS SUMMARY | 2024-12-12 11:43 | XMS_ITS | Clinical Summary ---
Author Organization [facility] Address [address] [place] [address] Care Team Providers Care Teletypesetter Monitor Name Role Phone Lawrence Gary MD Primary Care Provider [phone] Allergies Active Allergy Reactions Criticality Noted Date Comments Gluten GI Intolerance/Nausea/Vomiting High 07/01/2017 Lactose (Mild /Moderate) GI Intolerance/Nausea/Vomiting Medium 07/01/2017 Latex Rash/Dermatitis Medium 11/10/2016 Oxycodone-Acetaminophen GI Intolerance/Nausea/Vomiting Medium 11/10/2016 Medications lisinopril-hydro chlorothiazide (PRINZIDE,ZESTOR ETIC) 20-25 MG per tablet Take 1 tablet by mouth daily. 7 Active acetaminophen (TYLENOL) 500 MG tablet Take 1 tablet (500 mg total) by mouth 4 times daily (every 6 hours) as needed for mild pain. Active PROAIR HFA 108 (90 Base) MCG/ACT inhaler Inhale 2 puffs as needed. 1 7 Active minocycline (MINOCIN) 100 MG capsule take 1 capsule by mouth twice a day for 7 days 0 8 Active amLODIPine (NORVASC) 10 MG tablet Take 1 tablet (10 mg total) by mouth daily. 2 Active fexofenadine (LUCIA) 180 MG tablet Take 1 tablet (180 mg total) by mouth. Active Linzess 290 MCG Cap capsule 2 Active losartan (COZAAR) 100 MG tablet 2 Active OMEprazole (PriLOSEC) 20 MG capsule 2 Active albuterol (PROVENTIL) (0.083%) 2.5 mg/3 mL nebulizer solutionIndicati ons:Moderate persistent asthma without complication Take 3 mL (2.5 mg total) by nebulization 4 times daily (every 6 hours) as needed for wheezing. 125 mL 5 3 Active budesonide-formo terol (SYMBICORT) 80-4.5 MCG/ACT inhalerIndicatio ns:Moderate persistent asthma without complication Inhale 2 puffs 2 (two) times a day. 10.2 g 3 3 Active spacer for MDI (Aerochamber/Griselda atheRite/Ellipse ) DeviceIndication s:Moderate persistent asthma without complication Use as instructed 1 each 3 Active Active Problems Problem Noted Date Diagnosed [...] 1 969 - 1974 Smokeless Tobacco: Never Tobacco Cessation:Counseling Given: Not [...] Bone Density (Females,Ages 65 and older) 2015 COVID-19 Vaccine (1 - 2023-2 5 season) 2024 Influenza Vaccine 03/01/2025 05/15/2007 Colonoscopy 06/27/2027 06/27/2017, 02/07/2014 Hepatitis B Vaccines [...] Generic Provider HX AMB PROCEDURES Final Result from Last 3 Months or Most Recently Relevant to Health Maintenance Insurance [employer] MEDICARE OUT OF NETWORK Advance Directives Documents on File Type Date Recorded Patient Physician Assistant Surgery Expl anation Advance Directive-Scan 06/07/2017 * Full Code (Latest Code Status on File) Date Activated Date Inactivated Comments 06/27/2017 5:44 PM * Full Code Date Activated Date Inactivated Comments 06/27/2017 8:25 AM 06/27/2017 5:44 PM Care Teams Teletypesetter Monitor Relationship Specialty Start Date End Date Lawrence Gary MD [facility] [place] [address] PCP - General Psychiatry, General 10/18/16
--- OUTSIDE RECORDS SUMMARY | 2024-12-12 11:43 | XMS_ITS | Encounter Summary ---
Author Organization [facility] Address [address] [place] [address] Care Team Providers Care Loom Doffer Name Role Phone Lawrence Gary MD Primary Care Provider [phone] Encounter Details Date Type Department Care Team (Late st Contact Info) Description 10/21/2000 Scanned Document [facility] Colorectal Surgery [address] [place] [address] Provider, Qasim, [address] [place] [address] Social History Tobacco Use Types Packs/Day Years [...] on filedocumented in this encounter Care Teams Loom Doffer Relationship Specialty Start Date End Date Lawrence Gary MD [address] [place] [address] PCP - General Psychiatry, General 10/18/16 documented as of this encounter
--- OUTSIDE RECORDS SUMMARY | 2024-12-12 11:43 | XMS_ITS | Encounter Summary ---
Author Organization [facility] Address [address] [place] [address] Care Team Providers Care Pharmacy Intake Coordinator Name Role Phone Lawrence Gary MD Primary Care Provider [phone] Encounter Details Date Type Department Care Team (Late st Contact Info) Description 08/23/2000 Scanned Document [facility] Colorectal Surgery [address] [place] [address] Provider, External, [address] [place] [address] Social History Tobacco Use Types Packs/Day Years [...] WOUND (08/23/2000) External Provider MD HOFF ORDERABLE PERFORMABLE F inal Result documented in this encounter Visit Diagnoses Not on filedocumented in this encounter Care Teams Pharmacy Intake Coordinator Relationship Specialty Start Date End Date Lawrence Gary MD [address] [place] [address] PCP - General Psychiatry, General 10/18/16 documented as of this encounter
--- OUTSIDE RECORDS SUMMARY | 2024-12-12 11:43 | XMS_ITS | Encounter Summary ---
Author Organization [facility] Address [address] [place] [address] Care Team Providers Care Tombstone Setter Name Role Phone Lawrence Gary MD Primary Care Provider [phone] Encounter Details Date Type Department Care Team (Late st Contact Info) Description 04/21/2022 Scanned Document [facility] Pulmonary [address] [place] [phone] Pulmonary, Scan Social History Tobacco Use Types Packs/Day Years Used Date Smoking Tobacco: Former Cigarettes 2 5 1 969 - 1994 Smokeless Tobacco: Never Alcohol Use Standard Drinks/Week [...] on filedocumented in this encounter Care Teams Tombstone Setter Relationship Specialty Start Date End Date Lawrence Gary MD [address] [place] [address] PCP - General Psychiatry, General 10/18/16 documented as of this encounter
== END 2024-12-12 11:28 | disposition home or self-care (01) ==
LOC: HO.RHES 10:40
PROVIDERS: PCP Internal Medicine; Visit Provider Internal Medicine Rheumatology
DX: M54.50 Low back pain, unspecified (principal); M70.61 Trochanteric bursitis, right hip; M70.62 Trochanteric bursitis, left hip; R74.01 Elevation of levels of liver transaminase levels
CPT/HCPCS: 20610; 99214

== ENCOUNTER 2024-12-12 10:39 | Outpatient (REF) | payer BC, SELFPAY ==
--- NOTE | ~2024-12-12 | XR_ITS ---
EXAMINATION: XR LUMBOSACRAL SPINE CLINICAL INFORMATION: M54.50 - Low back pain, unspecified COMPARISON: None available. TECHNIQUE: Three views of the lumbosacral spine. FINDINGS: There is a minimal levoconvex scoliosis centered at L4. There is straightening of the normal lumbar lordosis. Normal bone mineralization. No fractures, compression deformity, or suspicious bone lesions. There is a 3 mm degenerative appearing anterolisthesis of L4 on L5. Alignment is otherwise anatomic. Mild to moderate degenerative disc changes present most notable at L3-S1. Mild to moderate degenerative facet changes most notable at L3-S1. Normal facet alignment. Cholecystectomy clips are present. Anastomotic staple line is noted to the right of the lower L-spine. Surgical susan are seen abutting the left inferior sacrum. Soft tissues otherwise normal. XR/XR lumbar spine 2-3V IMPRESSION: 1. No acute bony abnormalities. 2. Mild to moderate degenerative spondylosis of the lumbar spine most significant at L3-S1. Electronically signed by: Danis Young MD 12/13/2024 08:34 AM EDT
--- NOTE | ~2024-12-12 | XR_ITS ---
EXAMINATION: XR SACROILIAC JOINTS CLINICAL INFORMATION: M54.50 - Low back pain, unspecified COMPARISON: None available. TECHNIQUE: 3 views of the sacroiliac joints FINDINGS: Bones and soft tissues are normal. No fracture. Alignment is anatomic. Sacroiliac joint spaces are well-maintained without erosions or surrounding sclerosis. There are surgical clip overlying the left inferior sacrum. There are degenerative changes of the lower lumbar spine. XR/XR sacroiliac joint min 3V IMPRESSION: Normal sacroiliac joints. No evidence of inflammatory SI joint arthropathy. Electronically signed by: Danis Young MD 12/13/2024 08:31 AM EDT
--- OUTSIDE RECORDS SUMMARY | 2024-12-12 12:51 | XMS_ITS | Clinical Summary ---
Author Organization [employer] Address [address] [facility] 7t [place] [address] Care Team Providers Care Nut Feeder Name Role Phone Unavailable Primary Care Provider [...]
--- OUTSIDE RECORDS SUMMARY | 2024-12-12 12:51 | XMS_ITS | Clinical Summary ---
Author Organization [facility] Address [address] [place] [address] Care Team Providers Care Programmer Developer Name Role Phone Lawrence Gary MD Primary Care Provider [phone] Allergies Active Allergy Reactions Criticality Noted Date [...] Documents on File Type Date Recorded Patient Net Software Engineer Expl anation Advance Directive-Scan 06/07/2017 * Full Code (Latest Code Status on File) Date Activated Date Inactivated Comments 06/27/2017 5:44 PM * Full Code Date Activated Date Inactivated Comments 06/27/2017 8:25 AM 06/27/2017 5:44 PM Care Teams Programmer Developer Relationship Specialty Start Date End Date Lawrence Gary MD [facility] [place] [address] PCP - General Psychiatry, General 10/18/16
--- OUTSIDE RECORDS SUMMARY | 2024-12-12 12:51 | XMS_ITS | Encounter Summary ---
Author Organization [facility] Address [address] [place] [address] Care Team Providers Care Horse Show Manager Name Role Phone Lawrence Gary MD Primary Care Provider [phone] Encounter Details Date Type Department Care Team (Late st Contact Info) Description 04/19/2017 Scanned Document [facility] Colorectal Surgery [address] [place] [address] Provider, Qasim, [address] [place] [address] Social History Tobacco Use Types Packs/Day Years [...] on filedocumented in this encounter Care Teams Horse Show Manager Relationship Specialty Start Date End Date Lawrence Gary MD [address] [place] [address] PCP - General Psychiatry, General 10/18/16 documented as of this encounter
--- OUTSIDE RECORDS SUMMARY | 2024-12-12 12:51 | XMS_ITS | Encounter Summary ---
Author Organization [facility] Address [address] [place] [address] Care Team Providers Care Line Assigner Name Role Phone Lawrence Gary MD Primary Care Provider [phone] Encounter Details Date Type Department Care Team (Late st Contact Info) Description 10/21/2000 Scanned Document [facility] Colorectal Surgery [address] [place] [address] Provider, Qasim, [address] [place] [address] Social History Tobacco Use Types Packs/Day Years [...] on filedocumented in this encounter Care Teams Line Assigner Relationship Specialty Start Date End Date Lawrence Gary MD [address] [place] [address] PCP - General Psychiatry, General 10/18/16 documented as of this encounter
--- OUTSIDE RECORDS SUMMARY | 2024-12-12 12:51 | XMS_ITS | Encounter Summary ---
Author Organization [facility] Address [address] [place] [address] Care Team Providers Care Us Administrative Law Judge Name Role Phone Lawrence Gary MD Primary Care Provider Encounter Details Date Type Department Care Team (Late st Contact Info) Description 02/07/2014 Scanned Document [address] [place] [phone] Provider, Generic Social History Tobacco Use Types [...] on filedocumented in this encounter Care Teams Us Administrative Law Judge Relationship Specialty Start Date End Date Lawrence Gary MD [facility] [place] [address] PCP - General Psychiatry, General 10/18/16 documented as of this encounter
--- OUTSIDE RECORDS SUMMARY | 2024-12-12 12:51 | XMS_ITS | Encounter Summary ---
Author Organization [facility] Address [address] [place] [address] Care Team Providers Care Explosives Operator Name Role Phone Lawrence Gary MD Primary Care Provider [phone] Encounter Details Date Type Department Care Team (Late st Contact Info) Description 08/24/2016 Scanned Document [address] [place] [phone] Provider, Generic Social History Tobacco Use Types [...] on filedocumented in this encounter Care Teams Explosives Operator Relationship Specialty Start Date End Date Lawrence Gary MD [address] [place] [address] PCP - General Psychiatry, General 10/18/16 documented as of this encounter
--- OUTSIDE RECORDS SUMMARY | 2024-12-12 12:51 | XMS_ITS | Encounter Summary ---
Author Organization [facility] Address [address] [place] [address] Care Team Providers Care Weighmaster Name Role Phone Lawrence Gary MD Primary Care Provider [phone] Encounter Details Date Type Department Care Team (Late st Contact Info) Description 10/19/2000 Scanned Document [facility] Colorectal Surgery [address] [place] [address] Provider, Qasim, [address] [place] [address] Social History Tobacco Use Types Packs/Day Years [...] on filedocumented in this encounter Care Teams Weighmaster Relationship Specialty Start Date End Date Lawrence Gary MD [address] [place] [address] PCP - General Psychiatry, General 10/18/16 documented as of this encounter
--- OUTSIDE RECORDS SUMMARY | 2024-12-12 12:51 | XMS_ITS | Encounter Summary ---
Author Organization [facility] Address [address] [place] [address] Care Team Providers Care Toolmaker Grade Three Name Role Phone Lawrence Gary MD Primary Care Provider [phone] Encounter Details Date Type Department Care Team (Late st Contact Info) Description [address] [facility] Colorectal Surgery [address] [place] [address] Lawrence Gary MD [facility] [place] [address] Social History Tobacco Use Types Packs/Day Years [...] on filedocumented in this encounter Care Teams Toolmaker Grade Three Relationship Specialty Start Date End Date Lawrence Gary MD [address] [place] [address] PCP - General Psychiatry, General 10/18/16 documented as of this encounter
--- OUTSIDE RECORDS SUMMARY | 2024-12-12 12:51 | XMS_ITS | Encounter Summary ---
Author Organization [facility] Address [address] [place] [address] Care Team Providers Care Reroller Hand Name Role Phone Lawrence Gary MD Primary Care Provider [phone] Encounter Details Date Type Department Care Team (Late st Contact Info) Description 10/11/2016 Scanned Document [address] [place] [phone] Provider, Generic Social History Tobacco Use Types [...] on filedocumented in this encounter Care Teams Reroller Hand Relationship Specialty Start Date End Date Lawrence Gary MD [address] [place] [address] PCP - General Psychiatry, General 10/18/16 documented as of this encounter
--- OUTSIDE RECORDS SUMMARY | 2024-12-12 12:51 | XMS_ITS | Encounter Summary ---
Author Organization [facility] Address [address] [place] [address] Care Team Providers Care Enterprise Integration Architect Name Role Phone Lawrence Gary MD Primary Care Provider [phone] Encounter Details Date Type Department Care Team (Late st Contact Info) Description 08/23/2000 Scanned Document [facility] Colorectal Surgery [address] [place] [address] Provider, External, [address] [place] [address] Social History Tobacco Use Types Packs/Day Years [...] on filedocumented in this encounter Care Teams Enterprise Integration Architect Relationship Specialty Start Date End Date Lawrence Gary MD [address] [place] [address] PCP - General Psychiatry, General 10/18/16 documented as of this encounter
--- OUTSIDE RECORDS SUMMARY | 2024-12-12 12:51 | XMS_ITS | Encounter Summary ---
Author Organization [facility] Address [address] [place] [address] Care Team Providers Care Service Captain Name Role Phone Lawrence Gary MD Primary Care Provider [phone] Encounter Details Date Type Department Care Team (Late st Contact Info) Description 10/25/2023 Scanned Document [facility] Pulmonary [address] [place] [phone] Pulmonary, Scan Social History Tobacco Use Types [...] on filedocumented in this encounter Care Teams Service Captain Relationship Specialty Start Date End Date Lawrence Gary MD [address] [place] [address] PCP - General Psychiatry, General 10/18/16 documented as of this encounter
--- OUTSIDE RECORDS SUMMARY | 2024-12-12 12:51 | XMS_ITS | Clinical Summary ---
Author Organization [facility] Address [address] [place] [address] Phone Care Team Providers Care Shale Miner Blasting Name Role Phone Duran Gomez MD Primary Care Provider [phone] Allergies Active Allergy Reactions Criticality Noted Date [...] Office Visit [facility] [address] [place] [address] Jude Pinto MD Hypertension (Primary Dx) 10/31/2024 Refill [facility] [address] [phone] Josephine Gomez 10/31/2024 Office Communication [facility] [address] [phone] Melony Jones 10/29/2024 Orders Only [facility] [address] [address] Jude Pinto MD Hypertension 10/15/2024 Refill [facility] [address] [address] Jude Pinto MD from Last 3 Months [...] Office Visit [facility] [address] [place] [address] Jude Pinto MD [address] [phone] Health Maintenance Due Date Last Done Comments [...] [facility] Care Teams Shale Miner Blasting Relationship Specialty Start Date End Date Duran Gomez MD [address] [place] [address] PCP - General Family Medicine 12/29/23
--- OUTSIDE RECORDS SUMMARY | 2024-12-12 12:51 | XMS_ITS | Encounter Summary ---
Author Organization [employer] [facility] Address [address] [facility] 7 [place] [address] Care Team Providers Care Yarn Cleaner Name Role Phone Unavailable Primary Care Provider [...]
--- OUTSIDE RECORDS SUMMARY | 2024-12-12 12:51 | XMS_ITS | Encounter Summary ---
Author Organization [facility] Address [address] [place] [address] Care Team Providers Care High School Guidance Counselor Name Role Phone Lawrence Gary MD Primary Care Provider [phone] Encounter Details Date Type Department Care Team (Late st Contact Info) Description 04/21/[address] [facility] Pulmonary [address] [place] [phone] Pulmonary, Scan Social History Tobacco Use Types Packs/Day Years Used Date Smoking Tobacco: Former Cigarettes 2 5 1 [phone] - [phone] Smokeless Tobacco: Never Alcohol Use Standard Drinks/Week [...] on filedocumented in this encounter Care Teams High School Guidance Counselor Relationship Specialty Start Date End Date Lawrence Gary MD [address] [place] [address] PCP - General Psychiatry, General 10/18/16 documented as of this encounter
--- OUTSIDE RECORDS SUMMARY | 2024-12-12 12:51 | XMS_ITS | Encounter Summary ---
Author Organization [facility] Address [address] [place] [address] Care Team Providers Care Ribbon Hand Name Role Phone Lawrence Gary MD Primary Care Provider [phone] Encounter Details Date Type Department Care Team (Late st Contact Info) Description 07/09/2014 Scanned Document [address] [place] [phone] Provider, Generic Social History Tobacco Use Types [...] on filedocumented in this encounter Care Teams Ribbon Hand Relationship Specialty Start Date End Date Larwence Gary MD [address] [place] [address] PCP - General Psychiatry, General 10/18/16 documented as of this encounter
--- OUTSIDE RECORDS SUMMARY | 2024-12-12 12:51 | XMS_ITS | Encounter Summary ---
Author Organization [facility] Address [address] [place] [address] Care Team Providers Care Timber Treatment Plant Operator Name Role Phone Lawrence Gary MD Primary Care Provider [phone] Encounter Details Date Type Department Care Team (Late st Contact Info) Description 08/04/2007 Scanned Document [facility] Colorectal Surgery [address] [place] [address] Provider, Qasim, [address] [place] [address] Social History Tobacco Use Types Packs/Day Years [...] on filedocumented in this encounter Care Teams Timber Treatment Plant Operator Relationship Specialty Start Date End Date Lawrence Gary MD [address] [place] [address] PCP - General Psychiatry, General 10/18/16 documented as of this encounter
--- OUTSIDE RECORDS SUMMARY | 2024-12-12 12:51 | XMS_ITS | Encounter Summary ---
Author Organization [facility] Address [address] [place] [address] Care Team Providers Care Derrick Builder Name Role Phone Lawrence Gary MD Primary Care Provider [phone] Encounter Details Date Type Department Care Team (Late st Contact Info) Description 07/06/2006 Scanned Document [address] [phone] Provider, Generic Social History Tobacco Use Types [...] on filedocumented in this encounter Care Teams Derrick Builder Relationship Specialty Start Date End Date Lawrence Gary MD [address] [place] [address] PCP - General Psychiatry, General 10/18/16 documented as of this encounter
--- OUTSIDE RECORDS SUMMARY | 2024-12-12 12:51 | XMS_ITS | Clinical Summary ---
Author Organization [facility] Address [address] [place] [address] Phone Care Team Providers Care Counselor At Law Name Role Phone Fabiola Mike MICHELLE Primary Care Provider [phone] Allergies Active Allergy Reactions Criticality Noted Date [...] antihypertensive medications are managed by the patient's resolute professional whom she sees on a regular basis. resolute professional next month. The patient was instructed to continue to monitor her blood pressure at home. Dyspnea 07/15/2020 Moderate persistent asthma 07/15/2020 Asthma 07/09/2017 Diverticulitis 07/09/2017 Lung nodules 07/09/2017 Encounters Date Type Department Care Team Description 09/18/[address] [facility] Cardiology [facility] [address] [place] [address] Fabiola Mike NP Referral (Received [...] antihypertensive medications are managed by the patient's resolute professional whom she sees on a regular basis. resolute professional next month. The patient was instructed to [...] Description 06/11/2025 2:30 PM EST Office Visit [facility] Cardiology [facility] [address] [place] [address] Benton Mendoza MD [address] [place] [address] [address] [place] [address] Health Maintenance Due Date Last Done Comments [...] Documents on File Type Date Recorded Patient Licensed Master Social Worker Expl anation Health Care Decision (hx) 07/23/2011 AD RENEE DIRECTIVE Health Care Decision (hx) 07/23/2011 AD RENEE DIRECTIVE Health Care Decision (hx) 07/23/2011 AD RENEE DIRECTIVE Health Care Decision (hx) 07/23/2011 AD RENEE DIRECTIVE Care Teams Counselor At Law Relationship Specialty Start Date End Date Fabiola Mike NP [address] [place] [address] 1 [place] [address] PCP - General Primary Care 09/14/24
--- OUTSIDE RECORDS SUMMARY | 2024-12-12 12:51 | XMS_ITS | Encounter Summary ---
Author Organization [employer] Address [address] [facility] 7 [place] [address] Care Team Providers Care Bag Loader Name Role Phone Unavailable Primary Care Provider [...]
== END 2024-12-12 10:40 | disposition home or self-care (01) ==
LOC: HO.XRAY 10:39
PROVIDERS: PCP Internal Medicine; Visit Provider Internal Medicine Rheumatology
DX: M54.50 Low back pain, unspecified (principal); M70.61 Trochanteric bursitis, right hip; M70.62 Trochanteric bursitis, left hip; R74.01 Elevation of levels of liver transaminase levels
CPT/HCPCS: 20610; 72100; 72202; 99212; J2003; J3300

== ENCOUNTER → 2024-12-12 12:27 | Outpatient (BNV) | payer BC, SELFPAY | PROVIDERS: PCP Internal Medicine; Visit Provider Radiology Diagnostic Radiology | DX: M54.50 Low back pain, unspecified (principal); M47.896 Other spondylosis, lumbar region | CPT/HCPCS: 72100; 72202 ==

== ENCOUNTER 2025-03-20 13:28 | Outpatient (AMB) | payer BC, SELFPAY ==
[2025-03-20 13:30] VITALS: BP 130/84; PULSE 72; O2SAT 92; BMI 35.6
--- NOTE | 2025-03-20 13:30 | MHC.OFFVIS ---
Vital Signs 03/20/25 13:30 Height 5 ft 8 in Weight 233 lb 14.567 oz BMI 35.6 BP 130/84 Blood Pressure Location Lt brachial Position Sitting Pulse 72 Pulse Source Pulse Oximeter Pulse Oximetry (%) 92 Oxygen Delivery Method Room Air Intake Visit Reasons: 3 months Intake Note: Patent presents today for back pain follow up. Accompanied by: Self / Same As Patient Allergies acetaminophen (From PERCOCET) Allergy (Severe, Verified 03/20/25 13:30) RASH latex Allergy (Severe, Verified 03/20/25 13:30) Rash HPI HPI 3 months: Details: COntinues to have back pain with radiculopathy right leg and numb/paresthesia in thigh. PT caused more pain. She takes gabapentin with tylenol qhs, which allows her to got to sleep. She takes ibuprofen with tylenol combination pill PRN pain. No urinary or bowl incontinence. She feels her bladder is weaker. After 10-15 minutes of standing she has radicular symptoms. Relieved with rest. PFSH Medical History Dyspnea Chest discomfort GERD (gastroesophageal reflux disease) RP (rectal prolapse) Hemoptysis Asthma-COPD overlap syndrome Osteopenia Atelectasis Pulmonary nodules Asthma Surgical History H/O: hysterectomy Hx of cholecystectomy Family History Mother Asthma HTN (hypertension) Cardiovascular disease Sister Asthma HTN (hypertension) Cancer Paternal Grandmother Colon cancer Social History Household Members: Spouse Both parents involved: No Caregiver staying overnight: No Housing: Apartment Are you a primary family day care worker to a significant other at home: No Do you presently have visiting nurse or other home services: No 75 years or older and lives alone: No Alcohol intake: never Patient Tobacco Use Status: Never used Tobacco e-Cigarette/Vaping Use: Never Used service: No Current occupational status: retired Current occupational exposures/hazards: No Cognitive needs: No Hearing needs: Yes Vision needs: Yes (wear glasses) Physical Exam Vital Signs: Last Vital Signs Pulse 72 03/20/25 13:30 BP 130/84 03/20/25 13:30 Pulse Ox 92 03/20/25 13:30 Oxygen Delivery Method Room Air 03/20/25 13:30 BMI result Body Mass Index 35.6 Const Other: General: Comfortable Skin: No lesions seen MSK: Tender to palpate lower lumbar spinous process and paraspinal muscles. Tender SI joints. Negative ANGELO. Tender bilateral trochanteric bursae. Limited full flexion of hips due to pain. Good external rotation of bilateral hips. Limited lumbar flexion due to pain. Right straight leg raising test positive. Office Procedures AMB Joint Injection/Aspiration Joint Injection/Aspiration Details: Bilateral trochanteric bursa Prep: site was prepped using aseptic technique Injected into each site: 40 mg of, Kenalog, with 1 mL of and 1% plain lidocaine Procedure: Informed verbal consent was obtained. The patient tolerated the procedure well. Postprocedure protocol was discussed with patient. Coding 41637 - Large joint Procedure code (CPT) selection complete AMB Joint Injection/Aspiration Coding 70620 - Bilateral Large Joint Procedure code (CPT) selection complete Office Meds lidocaine (PF) 10 mg/mL (1 %) injection solution Performing Provider: Ab Thomas MD Performing Location: [facility] Administered by: Alyx Yung RN on 03/20/25 14:03 Dose Route Admin Location Dispensed Lot Number Expiration Date [facility] Stress Test Technician 10 mg Infiltration 2 mL [id number] 10/29/26 10880-568-94 [employer] Total Dispensed Waste 2 mL 50 % Kenalog 40 mg/mL suspension for injection Performing Provider: Ab Thomas MD Performing Location: [facility] Administered by: Alxy Yung RN on 03/20/25 14:03 Dose Route Admin Location Dispensed Lot Number Expiration Date [facility] Stress Test Technician 40 mg intrabursal 1 mL [id number] 03/31/27 2486-8383-40 [facility] Total Dispensed Waste 1 mL 0 % lidocaine (PF) 10 mg/mL (1 %) injection solution Performing Provider: Ab Thomas MD Performing Location: [facility] Administered by: Ab Thomas MD on 03/20/25 13:57 Dose Route Admin Location Dispensed Lot Number Expiration Date [facility] Stress Test Technician 10 mg Infiltration 2 mL [id number] 10/29/26 49597-915-39 [employer] Total Dispensed Waste 2 mL 50 % Kenalog 40 mg/mL suspension for injection Performing Provider: Ab Thomas MD Performing Location: [facility] Administered by: Ab Thomas MD on 03/20/25 13:57 Dose Route Admin Location Dispensed Lot Number Expiration Date [facility] Stress Test Technician 40 mg intrabursal 1 mL [id number] 03/31/27 2689-3360-06 [facility] Total Dispensed Waste 1 mL 0 % Results Reviewed Results Reviewed: EXAMINATION: XR LUMBOSACRAL SPINE CLINICAL INFORMATION: M54.50 - Low back pain, unspecified COMPARISON: None available. TECHNIQUE: Three views of the lumbosacral spine. FINDINGS: There is a minimal levoconvex scoliosis centered at L4. There is straightening of the normal lumbar lordosis. Normal bone mineralization. No fractures, compression deformity, or suspicious bone lesions. There is a 3 mm degenerative appearing anterolisthesis of L4 on L5. Alignment is otherwise anatomic. Mild to moderate degenerative disc changes present most notable at L3-S1. Mild to moderate degenerative facet changes most notable at L3-S1. Normal facet alignment. Cholecystectomy clips are present. Anastomotic staple line is noted to the right of the lower L-spine. Surgical susan are seen abutting the left inferior sacrum. Soft tissues otherwise normal. XR/XR lumbar spine 2-3V IMPRESSION: 1. No acute bony abnormalities. 2. Mild to moderate degenerative spondylosis of the lumbar spine most significant at L3-S1. Assessment & Plan Assessment & Plan (1) Low back pain potentially associated with radiculopathy: Comment: Pain is uncontrolled. She has lumbar spondylosis on x-ray. I am concerned she has nerve impingement. She was unable to tolerate physical therapy. She is taking Tylenol, ibuprofen and gabapentin 300 mg q.h.s. without relief. She was unable to tolerate gabapentin in the morning due to increased somnolence. Code(s): M54.50 - Low back pain, unspecified Category: Medical Plan: She will try taking gabapentin 600 mg q.h.s. She will continue to take Tylenol 500 mg q.h.s. Creatinine ordered for drug monitoring on gabapentin MRI L-spine ordered without contrast Pain management referral for consideration of L-spine cortisone injection. We discussed the Lyrica may be an option if she is unable to tolerate higher dose of gabapentin (2) Lumbar spondylosis: Code(s): M47.816 - Spondylosis without myelopathy or radiculopathy, lumbar region Category: Medical Plan: See above (3) Greater trochanteric bursitis of both hips: Comment: Recurrent. Pain is uncontrolled. Cortisone injections are lasting 8-9 weeks. Rheumatology history: Last cortisone injections for bilateral trochanteric bursitis treatment were August 2024, July 2023, September 2022, August 2022, January 2022, 11/2024. Code(s): M70.61 - Trochanteric bursitis, right hip; M70.62 - Trochanteric bursitis, left hip Category: Medical Plan: Patient received bilateral trochanteric bursa cortisone injections Return to clinic in 3 months Orders: Orders AMB Joint Injection/Aspiration Today M70.61 - Trochanteric bursitis, right hip, M70.62 - Trochanteric bursitis, left hip Creatinine Today M54.50 - Low back pain, unspecified, M70.61 - Trochanteric bursitis, right hip, M70.62 - Trochanteric bursitis, left hip MR lumbar spine wo con Today M54.50 - Low back pain, unspecified AMB Joint Injection/Aspiration Today M70.61 - Trochanteric bursitis, right hip, M70.62 - Trochanteric bursitis, left hip Referrals Pain Management Referral M54.50 - Low back pain, unspecified Medications: New [Seat lift] As directed Seat lift. Dx: lumbar spondylosis with radiculopathy 1 ea 0RF Coding Level of Care Code Est Pt Level 4 (87571) Complex EM visit Add On G2211 Diagnoses Low back pain potentially associated with radiculopathy M54.50 Lumbar spondylosis M47.816 Greater trochanteric bursitis of both hips M70.61; M70.62 CPT Codes Coding - 80320 - Bilateral Large Joint: 38974 - Bilateral Large Joint ([id number]) Coding - 87156 Large joint: 12019 - Large joint ([id number])
--- OUTSIDE RECORDS SUMMARY | 2025-03-20 14:22 | XMS_ITS | Clinical Summary ---
Author Organization [facility] Address [address] [place] [address] Phone Care Team Providers Care Neon Electrician Name Role Phone Duran Gomez MD Primary [...] (one) time each day 90 tablet 3 10/31/2024 Active amLODIPine (NORVASC) 10 MG tablet Take 1 tablet (10 mg total) by mouth 1 (one) time each day 90 tablet 3 12/25/2024 12/26/19 26 Active Active Problems Problem Noted Date Diagnosed Date Hypertension 11/20/2020 Hypertensive heart and renal disease with (congestive) heart failure 11/20/2020 Vitamin D deficiency 11/20/2020 Diverticulitis of large intestine 06/07/2017 Encounters Date Type Department Care Team Description 12/23/2024 Refill [facility] [address] [phone] Jude Pinto MD from Last 3 Months [...] Office Visit [facility] [address] [phone] Jude Pinto MD [address] [address] Health Maintenance Due Date Last Done Comments Breast Cancer Screening 1950 Pneumococcal Vaccine: 50+ Years (1 of 2 - PCV) 1969 Colorectal Cancer Screening: Annual FOBT 1999 Colorectal Cancer Screening: Colonoscopy 1999 Colorectal Cancer Screening: Sigmoidoscopy 1999 Influenza Vaccine (#1) 2025 , 07/17/2018 Hepatitis B Vaccine Aged Out No longe r eligible based on patient's age to complete this topic Insurance [place] [address] [address] [place] [id number] [place] [address] Care Teams Neon Electrician Relationship Specialty Start Date End Date Duran Gomez MD [address] [place] [id number] PCP - General Family Medicine 12/29/23
--- OUTSIDE RECORDS SUMMARY | 2025-03-20 14:22 | XMS_ITS | Clinical Summary ---
Author Organization [facility] Address [address] [place] [address] Phone Care Team Providers Care Stoker Installer Name Role Phone Cee Fabiola MARTINEZ Primary Care Provider [phone] Allergies Active Allergy Reactions Criticality Noted Date [...] antihypertensive medications are managed by the patient's emergency medical technician basic whom she sees on a regular basis. emergency medical technician basic next month. The patient was instructed to [...] antihypertensive medications are managed by the patient's emergency medical technician basic whom she sees on a regular basis. emergency medical technician basic next month. The patient was instructed to [...] Description 06/11/2025 2:30 PM EST Office Visit [facility] [address] [place] [address] Kris-Benton Carreno MD [address] [place] [address] [address] [place] [address] Health Maintenance Due Date Last Done Comments Breast Cancer Screening 1950 DTaP,Tdap,and Td Vaccines (1 - Tdap) 1969 Pneumococcal Vaccine: 50+ Ye ars (1 of 2 - PCV) 1969 Zoster Vaccines (1 of 2) 2000 RSV Immunization Adult Patie nts (1 - Risk 60-74 years 1-dose series) 2010 COVID-19 Vaccine (1 - 2023-2 5 season) 2024 Depression Screening 08/01/2024 Cholesterol Screening (Lipid Panel) 09/14/2024 Colorectal Cancer Screening: Colonoscopy 09/14/2024 Falls Risk Assessment 09/14/2024 Hepatitis C Screening 09/14/2024 Hypertension/CHF/CAD Annual BMP Blood Test 09/14/2024 Medicare Annual Wellness Visit 09/14/2024 Osteoporosis Screening (Bone Density Screening) 09/14/2024 Social Influencers of Health Screening 09/14/2024 Influenza Vaccine (#1) 2025 07/17/2018 HIB Vaccines Aged Out No longer eligi [...] complete this topic Insurance [employer] [place] MEDICARE ADVANTAGE Advance Directives Documents on File Type Date Recorded Patient Golf Player Assistant Expl anation Health Care Decision (hx) 07/23/2011 AD RENEE DIRECTIVE Health Care Decision (hx) 07/23/2011 AD RENEE DIRECTIVE Health Care Decision (hx) 07/23/2011 AD RENEE DIRECTIVE Health Care Decision (hx) 07/23/2011 AD RENEE DIRECTIVE Care Teams Stoker Installer Relationship Specialty Start Date End Date Fabiola Mike NP [address] [place] [address] [address] [place] [address] PCP - General Primary Care 09/14/24
--- OUTSIDE RECORDS SUMMARY | 2025-03-20 14:22 | XMS_ITS | Encounter Summary ---
Author Organization [employer] Address [address] [facility] 7 [place] [address] Care Team Providers Care Chain Maker Hand Name Role Phone Unavailable Primary Care [...]
--- OUTSIDE RECORDS SUMMARY | 2025-03-20 14:22 | XMS_ITS | Encounter Summary ---
Author Organization [facility] Address [address] [place] [address] Care Team Providers Care Bank Clerk Name Role Phone Lawrence Gary MD Primary Care Provider [phone] Encounter Details Date Type Department Care Team (Late st Contact Info) Description 04/21/2022 Scanned Document [facility] Pulmonary [address] [place] [phone] Pulmonary, Scan Social History Tobacco Use Types Packs/Day Years Used Date Smoking Tobacco: Former Cigarettes 2 5 1 [phone] Smokeless Tobacco: Never Alcohol Use Standard Drinks/Week [...] on filedocumented in this encounter Care Teams Bank Clerk Relationship Specialty Start Date End Date Lawrence Gary MD [address] [place] [address] PCP - General Psychiatry, General 10/18/16 documented as of this encounter
--- OUTSIDE RECORDS SUMMARY | 2025-03-20 14:22 | XMS_ITS ---
Author Name [facility] Organization Unknown History of Medication Use Medication Directions Dispensed Refills Start Date End Date Stat us albuterol (PROVENTIL) (0.083%) 2.5 mg/3 mL nebulizer solution Take 3 mL (2.5 mg total) by nebulization 4 times daily (every 6 hours) as needed for wheezing. 06/13/2023 06/13/2023 active budesonide-formotero l (SYMBICORT) 80-4.5 MCG/ACT inhaler Inhale 2 puffs 2 (two) times a day. 06/13/2023 active OMEprazole (PriLOSEC) 20 MG capsule 06/13/2022 active Linzess 290 MCG Cap capsule 05/07/2022 active amLODIPine (NORVASC) 10 MG tablet Take 1 tablet (10 mg total) by mouth daily. 12/30/2021 active acetaminophen (TYLENOL) 500 MG tablet Take 1 tablet (500 mg total) by mouth 4 times daily (every 6 hours) as needed for mild pain. active fexofenadine (LUCIA) 180 MG tablet Take 1 tablet (180 mg total) by mouth. active Allergies Allergen Reaction Severity Comment Documented Date Source Statu s LACTOSE (MILD /MODERATE) GI INTOLERANCE/NAUSEA/ VOMITING 07/01/2017 [facility] active OXYCODONE-ACETAMINO PHEN GI INTOLERANCE/NAUSEA/ VOMITING 11/10/2016 [facility] active GLUTEN GI INTOLERANCE/NAUSEA/ VOMITING [facility] LATEX RASH/DERMATITIS [facility] Problems Problem Status Onset Date Problem Type Date of Resoluti on Source Diverticulitis large intestine active 2017-06-27 ProblemAct [facility] Pulmonary nodules active 2022-06-29 ProblemAct [facility] Moderate persistent asthma without complication active 2022-06-29 ProblemAct [facility] Sjogren's syndrome active 2023-06-13 ProblemAct [facility] Encounters Encounter Type Encounter Reason Primary Diagnosis Location Date Ambulatory Moderate persistent asthma, uncomplicated Moderate persistent asthma, uncomplicated TRA 06/13/2023 Ambulatory Moderate persistent asthma, uncomplicated Moderate persistent asthma, uncomplicated TRA 08/04/2022 Ambulatory Moderate persist ent asthma, uncomplicated TRA 06/29/2022 Care Team Organization Name Specialty Phone Email Start Date End Da te TRA [facility] LUCERO Primary Care 06/29/2022 10/18/19 25 [facility] Primary Care 06/29/2022 09/27/19 23
== END 2025-03-20 14:52 | disposition home or self-care (01) ==
LOC: HO.RHES 13:29
PROVIDERS: PCP Internal Medicine; Visit Provider Internal Medicine Rheumatology
DX: M54.50 Low back pain, unspecified (principal); M47.816 Spondylosis without myelopathy or radiculopathy, lumbar region; M70.61 Trochanteric bursitis, right hip; M70.62 Trochanteric bursitis, left hip
CPT/HCPCS: 20610; 99214

== ENCOUNTER 2025-03-20 13:28 | Outpatient (REF) | payer BC, SELFPAY ==
[2025-03-20 18:35] LABS: Estimated Glomerular Filt Rate > 60
== END 2025-03-20 13:29 | disposition home or self-care (01) ==
LOC: HO.HKASLDS 13:28
PROVIDERS: Visit Provider Internal Medicine Rheumatology
DX: M70.61 Trochanteric bursitis, right hip (principal); M70.62 Trochanteric bursitis, left hip; M54.50 Low back pain, unspecified; M47.816 Spondylosis without myelopathy or radiculopathy, lumbar region
CPT/HCPCS: 20610; 36415; 82565; J2003; J3300

== ENCOUNTER 2025-04-01 13:04 | Outpatient (REF) | payer BC, SELFPAY ==
--- NOTE | ~2025-04-01 | MR_ITS ---
EXAMINATION: MR LUMBAR SPINE WITHOUT CONTRAST CLINICAL INFORMATION: Low back pain, unspecified. M54.50. COMPARISON: Correlated to x-ray dated December 12, 2024. TECHNIQUE: MRI of the lumbar spine was obtained using routine sequences without contrast. FINDINGS: Last rib-bearing vertebra labeled T12. There is a small and superior endplate compression deformity representing 20% volume loss with associated bone marrow STIR signal center and the L3 vertebra. Multilevel marginal osteophyte formation and decreased intervertebral disc height pronounced at L2-3. Grade 1 anterolisthesis L4-5 and to a lesser extent L3-4. Conus medullaris ends at pedicle of L1 with normal signal. T12-L1: No herniated disc. No neuroforamina stenosis. L1-2: Broad-based disc bulging. Facet joint and ligamentum flavum hypertrophy. No compression upon neural elements. L2-3: Broad-based disc bulging. Facet joint and ligamentum flavum hypertrophy. CSF effacement of thecal sac and reduced AP diameter of the central spinal canal. Bilateral, left greater than the right side neuroforamina narrowing. There is likely encroachment of the neural elements of the thecal sac and exiting nerve roots. L3-4: Broad-based disc bulging. Facet joint and ligamentum flavum hypertrophy. Reduced AP diameter of the thecal sac and bilateral neuroforamina stenosis encroaching the neural elements both thecal sac and exiting nerve roots. L4-5: Broad-based disc bulging. Facet joint and ligamentum flavum hypertrophy. Reduced AP diameter of the thecal sac and bilateral neuroforamina stenosis likely encroaching the neural elements. L5-S1: Broad-based disc bulging. Facet joint hypertrophy. Bilateral neuroforamina stenosis likely encroaching the exiting nerve roots. No prevertebral compartment hematoma, mass or fluid collection. Asymmetric volume loss right psoas muscle. Fatty signal within the lower lumbar muscles from L4 likely denervation.. MR/MR lumbar spine wo con IMPRESSION: Multilevel spondylosis resulting in central spinal canal stenosis at L3-4, L2-3 and to a lesser extent L4-5 and bilateral neuroforamina stenosis at L3-4 and L5-S1 and to a lesser extent L4-5 likely encroaching the neural elements. Grade 1 anterolisthesis L4-5 on a degenerative basis. Electronically signed by: Jorge Luis Taylor MD 04/02/2025 07:59 AM EDT
--- OUTSIDE RECORDS SUMMARY | 2025-04-01 13:21 | XMS_ITS | Encounter Summary ---
Author Organization [facility] Address [address] [place] [address] Care Team Providers Care Surgical Coder Name Role Phone Lawrence Gary MD Primary Care Provider [phone] Encounter Details Date Type Department Care Team (Late st Contact Info) Description 08/24/2016 Scanned Document [address] [place] [phone] Provider, Generic Social History Tobacco Use Types [...] on filedocumented in this encounter Care Teams Surgical Coder Relationship Specialty Start Date End Date Lawrence Gary MD [address] [place] [address] PCP - General Psychiatry, General 10/18/16 documented as of this encounter
--- OUTSIDE RECORDS SUMMARY | 2025-04-01 13:21 | XMS_ITS | Encounter Summary ---
Author Organization [facility] Address [address] [place] [address] Care Team Providers Care Mining Captain Name Role Phone Lawrence Gary MD Primary Care Provider [phone] Encounter Details Date Type Department Care Team (Late st Contact Info) Description 02/07/2014 Scanned Document [address] [place] [phone] Provider, Generic Social History Tobacco Use Types [...] on filedocumented in this encounter Care Teams Mining Captain Relationship Specialty Start Date End Date Lawrence Gary MD [facility] [place] [address] PCP - General Psychiatry, General 10/18/16 documented as of this encounter
--- OUTSIDE RECORDS SUMMARY | 2025-04-01 13:21 | XMS_ITS | Clinical Summary ---
Author Organization [facility] Address [address] [place] [address] Phone Care Team Providers Care Inspector Of Weights And Measures Name Role Phone Cee Fabiola MARTINEZ Primary Care Provider [phone] Allergies Active Allergy Reactions Criticality Noted Date [...] antihypertensive medications are managed by the patient's operating manager whom she sees on a regular basis. operating manager next month. The patient was instructed to [...] antihypertensive medications are managed by the patient's operating manager whom she sees on a regular basis. operating manager next month. The patient was instructed to [...] Description 06/11/2025 2:30 PM EST Office Visit [facility] [address] [place] [address] Kris-Benton Carreno MD [address] [place] [address] [address] [place] [address] Health Maintenance Due Date Last Done Comments Breast Cancer Screening 1950 DTaP,Tdap,and Td Vaccines (1 - Tdap) 1969 Pneumococcal Vaccine: 50+ Ye ars (1 of 2 - PCV) 1969 Zoster Vaccines (1 of 2) 2000 RSV Immunization Adult Patie nts (1 - Risk 60-74 years 1-dose series) 2010 Depression Screening 08/01/2024 Cholesterol Screening (Lipid Panel) 09/14/2024 Colorectal Cancer Screening: Colonoscopy 09/14/2024 Falls Risk Assessment 09/14/2024 Hepatitis C Screening 09/14/2024 Hypertension/CHF/CAD Annual BMP Blood Test 09/14/2024 Medicare Annual Wellness Visit 09/14/2024 Osteoporosis Screening (Bone Density Screening) 09/14/2024 Social Influencers of Health Screening 09/14/2024 COVID-19 Vaccine ( - 2023-2 5 season) 2025 Influenza Vaccine (#1) 2025 07/17/2018 HIB Vaccines [...] Documents on File Type Date Recorded Patient Attorney Law Clerk Expl anation Health Care Decision (hx) 07/23/2011 AD RENEE DIRECTIVE Health Care Decision (hx) 07/23/2011 AD RENEE DIRECTIVE Health Care Decision (hx) 07/23/2011 AD RENEE DIRECTIVE Health Care Decision (hx) 07/23/2011 AD RENEE DIRECTIVE Care Teams Inspector Of Weights And Measures Relationship Specialty Start Date End Date Fabiola Mike NP [address] [place] [phone] PCP - General Primary Care 09/14/24
--- OUTSIDE RECORDS SUMMARY | 2025-04-01 13:21 | XMS_ITS | Clinical Summary ---
Author Organization [employer] Address [address] [facility] 7t [place] [address] Care Team Providers Care Wrap Knitting Machine Operator Name Role Phone Unavailable Primary Care [...] Vaccines (1 of 2) 2000 COVID-19 Vaccine (1 - 2023-2 5 season) 2024 Influenza Vaccine (#1) 2025 RSV Patients and Pa tients Aged 60 [...]
--- OUTSIDE RECORDS SUMMARY | 2025-04-01 13:21 | XMS_ITS | Clinical Summary ---
Author Organization [facility] Address [address] [place] [address] Phone Care Team Providers Care Drier Take Off Tender Name Role Phone Duran Gomez MD Primary [...] each day 90 tablet 3 12/25/2024 12/26/19 Active Active Problems Problem Noted Date Diagnosed Date Hypertension 11/20/2020 Hypertensive heart and renal disease with (congestive) heart failure 11/20/2020 Vitamin D deficiency 11/20/2020 Diverticulitis of large intestine 06/07/2017 Immunizations Immunization Administration Dates Next Due Influenza [...] Visit [facility] [address] [place] [phone] Jdue Pinto MD [address] [address] Health Maintenance Due Date Last Done Comments Breast Cancer Screening 1950 Pneumococcal Vaccine: 50+ Years (1 of 2 - PCV) 1969 Colorectal Cancer Screening: Annual FOBT 1999 Colorectal Cancer Screening: Colonoscopy 1999 Colorectal Cancer Screening: Sigmoidoscopy 1999 Influenza Vaccine (#1) 2025 , 07/17/2018 Hepatitis B Vaccine Aged Out No longe r eligible based on patient's age to complete this topic Insurance [facility] Care Teams Drier Take Off Tender Relationship Specialty Start Date End Date Duran Gomez MD [address] [place] [phone] PCP - General Family Medicine 12/29/23
--- OUTSIDE RECORDS SUMMARY | 2025-04-01 13:21 | XMS_ITS | Encounter Summary ---
Author Organization [facility] Address [address] [place] [address] Care Team Providers Care Dining Room Coordinator Name Role Phone Lawrence Gary MD Primary Care Provider [phone] Encounter Details Date Type Department Care Team (Late st Contact Info) Description 04/21/2022 Scanned Document [facility] Pulmonary [address] [place] [phone] Pulmonary, Scan Social History Tobacco Use Types Packs/Day Years Used Date Smoking Tobacco: Former Cigarettes 2 5 1 969 - 3766 Smokeless Tobacco: Never Alcohol Use Standard Drinks/Week [...] on filedocumented in this encounter Care Teams Dining Room Coordinator Relationship Specialty Start Date End Date Lawrence Gary MD [address] [place] [address] PCP - General Psychiatry, General 10/18/16 documented as of this encounter
--- OUTSIDE RECORDS SUMMARY | 2025-04-01 13:21 | XMS_ITS | Encounter Summary ---
Author Organization [facility] Address [address] [place] [address] Care Team Providers Care Counter Sales Representative Name Role Phone Lawrence Gary MD Primary Care Provider [phone] Encounter Details Date Type Department Care Team (Late st Contact Info) Description 2017 Scanned Document [facility] Colorectal Surgery [address] [place] [address] Lawrence Gary MD [facility] [place] [address] Social History Tobacco Use Types Packs/Day Years [...] on filedocumented in this encounter Care Teams Counter Sales Representative Relationship Specialty Start Date End Date Lawrence Gary MD [address] [place] [phone] PCP - General Psychiatry, General 10/18/16 documented as of this encounter
--- OUTSIDE RECORDS SUMMARY | 2025-04-01 13:21 | XMS_ITS | Encounter Summary ---
Author Organization [facility] Address [address] [place] [address] Care Team Providers Care Extension Service Agent Name Role Phone Lawrence Gary MD Primary Care Provider [phone] Encounter Details Date Type Department Care Team (Late st Contact Info) Description 07/09/2014 Scanned Document [address] [place] [address] [phone] Provider, Generic Social History Tobacco Use Types [...] on filedocumented in this encounter Care Teams Extension Service Agent Relationship Specialty Start Date End Date Lawrence Gary MD [address] [place] [address] PCP - General Psychiatry, General 10/18/16 documented as of this encounter
--- OUTSIDE RECORDS SUMMARY | 2025-04-01 13:21 | XMS_ITS | Encounter Summary ---
Author Organization [facility] Address [address] [place] [address] Care Team Providers Care Sanitation Tank Washer Name Role Phone Lawrence Gary MD Primary Care Provider Encounter Details Date Type Department Care Team (Late st Contact Info) Description 10/21/2000 Scanned Document [facility] Colorectal Surgery [address] [place] [address] Provider, Qasim, [address] [place] [address] Social History Tobacco Use Types Packs/Day Years [...] on filedocumented in this encounter Care Teams Sanitation Tank Washer Relationship Specialty Start Date End Date Lawrence Gary MD [address] [place] [address] PCP - General Psychiatry, General 10/18/16 documented as of this encounter
--- OUTSIDE RECORDS SUMMARY | 2025-04-01 13:21 | XMS_ITS | Encounter Summary ---
Author Organization [facility] Address [address] [place] [address] Care Team Providers Care Deburrer Strip Name Role Phone Lawrence Gary MD Primary Care Provider [phone] Encounter Details Date Type Department Care Team (Late st Contact Info) Description 08/23/2000 Scanned Document [facility] Colorectal Surgery [address] [place] [address] Provider, External, [address] [place] [address] Social History Tobacco Use Types Packs/Day Years [...] on filedocumented in this encounter Care Teams Deburrer Strip Relationship Specialty Start Date End Date Lawrence Gary MD [address] [place] [address] PCP - General Psychiatry, General 10/18/16 documented as of this encounter
--- OUTSIDE RECORDS SUMMARY | 2025-04-01 13:21 | XMS_ITS | Clinical Summary ---
Author Organization [facility] Address [address] [place] [address] Care Team Providers Care Stations Superintendent Name Role Phone Lawrence Gary MD Primary Care Provider [phone] Allergies Active Allergy Reactions Criticality Noted Date [...] 82 06/29/2022 2:57 PM EST Temperature 37.1 C (98.7 F) 06/29/2022 2:57 PM EST Respiratory Rate 18 08/16/2017 3:38 PM EST [...] Vaccine 03/01/2025 05/15/2007 Colonoscopy 06/27/2027 06/27/2017, 02/07/2014 Advance Care Planning Completed 06/07/2017 Hepatitis B Vaccines Aged Out No long [...] Documents on File Type Date Recorded Patient Meeting Manager Jose Rafael white Advance Directive-Scan 06/07/2017 * Full Code (Latest Code Status on File) Date Activated Date Inactivated Comments 06/27/2017 5:44 PM * Full Code Date Activated Date Inactivated Comments 06/27/2017 8:25 AM 06/27/2017 5:44 PM Care Teams Stations Superintendent Relationship Specialty Start Date End Date Lawrence Gary MD [facility] [place] [address] PCP - General Psychiatry, General 10/18/16
--- OUTSIDE RECORDS SUMMARY | 2025-04-01 13:21 | XMS_ITS | Encounter Summary ---
Author Organization [facility] Address [address] [place] [address] Care Team Providers Care Advisory Application Developer Name Role Phone Lawrence Gary MD Primary Care Provider [phone] Encounter Details Date Type Department Care Team (Late st Contact Info) Description 04/19/2017 Scanned Document [facility] Colorectal Surgery [address] [place] [address] Provider, Qasim, [address] [place] [address] Social History Tobacco Use Types Packs/Day Years [...] on filedocumented in this encounter Care Teams Advisory Application Developer Relationship Specialty Start Date End Date Lawrence Gary MD [address] [place] [address] PCP - General Psychiatry, General 10/18/16 documented as of this encounter
--- OUTSIDE RECORDS SUMMARY | 2025-04-01 13:21 | XMS_ITS | Encounter Summary ---
Author Organization [facility] Address [address] [facility] 7 [place] [address] Care Team Providers Care Timber Feller Name Role Phone Unavailable Primary Care Provider [...]
--- OUTSIDE RECORDS SUMMARY | 2025-04-01 13:21 | XMS_ITS | Encounter Summary ---
Author Organization [facility] Address [address] [place] [address] Care Team Providers Care Collection Agent Name Role Phone Lawrence Gary MD Primary Care Provider [phone] Encounter Details Date Type Department Care Team (Late st Contact Info) Description 08/04/2007 Scanned Document [facility] Colorectal Surgery [address] [place] [address] Provider, Qasim, [address] [place] [address] Social History Tobacco Use Types Packs/Day Years [...] on filedocumented in this encounter Care Teams Collection Agent Relationship Specialty Start Date End Date Lawrence Gary MD [address] [place] [address] PCP - General Psychiatry, General 10/18/16 documented as of this encounter
--- OUTSIDE RECORDS SUMMARY | 2025-04-01 13:21 | XMS_ITS | Encounter Summary ---
Author Organization [facility] Address [address] [place] [address] Care Team Providers Care Rubber Mold Maker Name Role Phone Lawrence Gary MD Primary Care Provider Encounter Details Date Type Department Care Team (Late st Contact Info) Description 10/11/2016 Scanned Document [address] [place] [phone] Provider, Generic Social History Tobacco Use Types [...] on filedocumented in this encounter Care Teams Rubber Mold Maker Relationship Specialty Start Date End Date Lawrence Gary MD [address] [place] [address] PCP - General Psychiatry, General 10/18/16 documented as of this encounter
--- OUTSIDE RECORDS SUMMARY | 2025-04-01 13:21 | XMS_ITS | Encounter Summary ---
Author Organization [facility] Address [address] [place] [address] Care Team Providers Care Construction Helper Name Role Phone Lawrence Gary MD Primary Care Provider [phone] Encounter Details Date Type Department Care Team (Late st Contact Info) Description 10/25/2023 Scanned Document [facility] Pulmonary [address] [place] [address] [phone] Pulmonary, Scan Social History Tobacco Use Types [...] on filedocumented in this encounter Care Teams Construction Helper Relationship Specialty Start Date End Date Lawrence Gary MD [address] [place] [address] PCP - General Psychiatry, General 10/18/16 documented as of this encounter
--- OUTSIDE RECORDS SUMMARY | 2025-04-01 13:21 | XMS_ITS | Encounter Summary ---
Author Organization [facility] Address [address] [place] [address] Care Team Providers Care Topper Press Operator Automatic Name Role Phone Lawrence Gary MD Primary Care Provider [phone] Encounter Details Date Type Department Care Team (Late st Contact Info) Description 07/06/2006 Scanned Document [address] [phone] Provider, Generic Social History Tobacco Use Types [...] on filedocumented in this encounter Care Teams Topper Press Operator Automatic Relationship Specialty Start Date End Date Lawrence Gary MD [address] [place] [address] PCP - General Psychiatry, General 10/18/16 documented as of this encounter
--- OUTSIDE RECORDS SUMMARY | 2025-04-01 13:21 | XMS_ITS | Encounter Summary ---
Author Organization [facility] Address [address] [facility] 7 [place] [address] Care Team Providers Care Manager Planning Name Role Phone Unavailable Primary Care Provider [...]
--- OUTSIDE RECORDS SUMMARY | 2025-04-01 13:21 | XMS_ITS | Encounter Summary ---
Author Organization [facility] Address [address] [place] [address] Care Team Providers Care Vp Celebrity Services Name Role Phone Lawrence Gary MD Primary Care Provider [phone] Encounter Details Date Type Department Care Team (Late st Contact Info) Description 10/19/2000 Scanned Document [facility] Colorectal Surgery [address] [place] [address] Provider, Qasim, [address] [place] [address] Social History Tobacco Use Types Packs/Day Years [...] on filedocumented in this encounter Care Teams Vp Celebrity Services Relationship Specialty Start Date End Date Lawrence Gary MD [address] [place] [address] PCP - General Psychiatry, General 10/18/16 documented as of this encounter
== END 2025-04-01 13:05 | disposition home or self-care (01) ==
LOC: HO.MRI 13:04
PROVIDERS: Visit Provider Internal Medicine Rheumatology
DX: M54.50 Low back pain, unspecified (principal)
CPT/HCPCS: 72148

== ENCOUNTER → 2025-04-01 13:05 | Outpatient (BNV) | payer BC, SELFPAY | PROVIDERS: Visit Provider Radiology Diagnostic Radiology | DX: M47.816 Spondylosis without myelopathy or radiculopathy, lumbar region (principal); M48.061 Spinal stenosis, lumbar region without neurogenic claudication | CPT/HCPCS: 72148 ==

== ENCOUNTER 2025-04-02 14:40 | Outpatient (AMB) | payer BC, SELFPAY ==
--- NOTE | 2025-04-02 14:42 | MHC.OFFVIS ---
Vital Signs 04/02/25 14:43 Height 5 ft 8 in Weight 220 lb 7.396 oz BMI 33.5 BP 142/74 H Blood Pressure Location Lt brachial Position Sitting Pulse 75 Pulse Source Pulse Oximeter Pulse Oximetry (%) 96 Oxygen Delivery Method Room Air Intake Visit Reasons: Pulm Nodules Drill Rig Operator Helper Required: No Accompanied by: Spouse Allergies acetaminophen (From PERCOCET) Allergy (Severe, Verified 04/02/25 14:45) RASH latex Allergy (Severe, Verified 04/02/25 14:45) Rash HPI Comments Details: The patient is a 74-year-old woman with known history of pulmonary nodules and asthma. Overall her respiratory status waxes and wanes. She still has a difficult time going up a flight of stairs. Rrpx-cp-jprxtgob severity. She does use her Symbicort on a regular basis. She tries not to use her rescue inhaler. She is concerned about the winter because as usually her worse months. At this point will optimize her respiratory therapy adding Spiriva to her regimen. We also looked at her CT scan of the chest last done August 2019 demonstrating stable pulmonary nodules although she did have increased atelectasis specially at the right base. Will plan to repeat a CT scan of the chest sometime in the fall of 2020. 12/08/2021 the patient has a telephone visit today. She is doing relatively well. Denies any significant shortness of breath or wheezing. She does have intermittent cough mild in severity. She continues use her nebulized therapy with good response. She did recently have a CT scan of the chest that I personally reviewed and compared to previous. Patient has multiple pulmonary nodules. It appears that 1 of the nodules slightly increased in size. But all the nodules are subcentimeter in size largest 1 measuring 6 mm. There was a question of PET scan on the actual impression from the radiologist. However explained to the patient that based on the small size a PET scan would not be an accurate study at this time. No significant changes from the nodule standpoint. Will request another CT scan in a year's time. Will plan to discuss the case in tumor conference with Radiology present. This will be can clear 5 the request for PET scan. we also reviewed her last pulmonary function study that actually occurred back in March 2021 which demonstrated a mild diffusion impairment along with a low normal total lung capacity. The patient understands that she does have increased abdominal pressure due to an elevated BMI that is likely contributing to the low total lung capacity and diffusing capacity. The patient also has some evidence of atelectasis on her CT scan although some of it has actually improved when compared to previous. 11/28/2023 the patient is here for pulmonary follow-up visit. Overall the patient has been doing well. She was lost to follow-up for appeared of time because she was trying change her care to [facility]. But was too far away. Her last CT scan of the chest was back in January 2023 and will send a Bakari. I do have city although have not been able to downloaded into the system. They did documented new 3 mm pulmonary nodule. His hard to know if this nodule is completing but we need to compared to previous. The patient has had numerous nodules prior to that. The largest nodule documented on her last CT scan from [facility] back in January was most 5.9-6 mm in size. On that CT scan also described ground-glass opacities in the dimensions small airways disease suggesting mosaic pattern. We did review her most recent CT scan that we have available the system from 2021 and I did not see any mosaic pattern at that time. The patient did have significant atelectasis primarily in the right lower lobe area. Once we were able to download this CD will get compare. The patient is concerned about too many CT scans because the very expensive with a co-pay of 250 dollars. Therefore will try to minimize the exposure to radiation into the exposure to the cat scans. Although now with a new 3 mm pulmonary nodule we need to continue surveillance. She stopped the nebulized therapy was switched over to Symbicort. She does use it as needed. She is still getting shortness breath with activity. Auqm-wl-bsvgvjpv severity. She also has other comorbidities such as musculoskeletal issues that also limit her activity. She does we did talk about pulmonary rehabilitation. When she finishes home physical therapy we can consider pulmonary function studies in order to get a pulmonary rehabilitation. 09/21/2024 the patient is here for pulmonary follow-up visit. Overall she is doing okay. She is having issues with bursitis and recently got a shot for the bursa and seems to be walking better. But now that she is walking better she seems to be more short of breath. Dwdm-ty-otqetbny severity. She does complaint of some chest heaviness as well. Some substernal discomfort that comes and goes. Right now she does not have it. She has not had an EKG in some time and she has not had a stress test either. She did undergo a pulmonary function study back in 2020 without any obstructive airway disease. And does not have any significant wheezing or rhonchi or diminished breath sounds on exam. The patient did have a CT scan of the chest demonstrating a new pulmonary nodule potentially in the left upper lobe. I will have to compare to her previous CT scans available. I do not foresee that this is a significant finding. She has likely had this before specially since it was only compared to a CT scan from 2016. Still if the nodules new was only 3 mm in size and will just need another CT scan in a year's time. We did go for a walking oximetry the patient did good and her oxygen was stable. Will go ahead and have her get a EKG and also a cardiac stress test. 04/02/2025 the patient is here for a pulmonary follow-up visit. Overall she is doing okay she can still complains of dyspnea on exertion. The Symbicort has not been very effective. She is willing to try Spiriva along with Symbicort to see if this provides additional relief. The patient also has a CT scan from September 2024 demonstrating a new pulmonary nodule subcentimeter in size. Her other nodules are stable. In view of her worsening respiratory complaints in the new nodule will plan to repeat the another CAT scan in the winter of 2025. [facility] Medical History Dyspnea Chest discomfort GERD (gastroesophageal reflux disease) RP (rectal prolapse) Hemoptysis Asthma-COPD overlap syndrome Osteopenia Atelectasis Pulmonary nodules Asthma Surgical History H/O: hysterectomy Hx of cholecystectomy Family History Mother Asthma HTN (hypertension) Cardiovascular disease Sister Asthma HTN (hypertension) Cancer Paternal Grandmother Colon cancer Social History Household Members: Spouse Both parents involved: No Caregiver staying overnight: No Housing: Apartment Are you a primary healthcare educator to a significant other at home: No Do you presently have visiting nurse or other home services: No 75 years or older and lives alone: No Alcohol intake: never Patient Tobacco Use Status: Never used Tobacco e-Cigarette/Vaping Use: Never Used service: No Current occupational status: retired Current occupational exposures/hazards: No Cognitive needs: No Hearing needs: Yes Vision needs: Yes (wear glasses) Review of Systems Const Denies night sweats ENT Denies change in voice, Denies lip swelling, Reports epistaxis, Denies mouth pain, Reports nasal congestion, Reports nasal discharge and Denies tongue swelling Card Denies chest pain and Reports dyspnea on exertion Resp Reports cough, Denies hemoptysis and Reports dyspnea on exertion GI Denies abdominal pain Musc Reports abnormal gait Neuro Denies Neuro-related abnormal movements and Reports abnormal gait Psych Denies no additional complaints Solis/Lymph Denies easy bleeding and Denies lymphadenopathy Aller/Immun Denies lip swelling and Denies tongue swelling Physical Exam Vital Signs: Last Vital Signs Pulse 75 04/02/25 14:43 BP 142/74 H 04/02/25 14:43 Pulse Ox 96 04/02/25 14:43 Oxygen Delivery Method Room Air 04/02/25 14:43 BMI result Body Mass Index 33.5 Const General: comfortable and alert HEENT Head: Yes normocephalic General nose exam: Abnormal external nose present and Nasal discharge present Eyes Pupils: Equal, round and reactive pupils present Neck Neck: Yes normal visual inspection, Yes full ROM and Yes no lymphadenopathy Chest Chest palpation & inspection: normal inspection of the chest Resp Effort & Inspection: normal respiratory effort Auscultation: diminished lung sounds Cardio Rate: regular rate Rhythm: regular rhythm Heart sounds: S1 normal heart sound present and S2 normal heart sound present GI Palpation (GI): Soft to palpation and nontender Auscultation: normal bowel sounds General: Yes no CVA tenderness Back/Spine/Pelvis Back: no CVA tenderness Skin General skin exam: no rashes or lesions noted Neuro Cranial nerves: Yes Equal, round and reactive pupils present Extrem General: Yes no clubbing, cyanosis or edema Assessment & Plan Assessment & Plan (1) Asthma-COPD overlap syndrome: Code(s): J44.9 - Chronic obstructive pulmonary disease, unspecified Category: Medical (2) Pulmonary nodules: Code(s): R91.8 - Other nonspecific abnormal finding of lung field Category: Medical (3) Sjogren's syndrome with keratoconjunctivitis sicca: Code(s): M35.01 - Sjogren syndrome with keratoconjunctivitis Category: Medical (4) Dyspnea: Code(s): R06.00 - Dyspnea, unspecified Category: Medical Qualifiers: Dyspnea type: dyspnea on exertion Qualified Code(s): R06.09 - Other forms of dyspnea (5) Atelectasis: Code(s): J98.11 - Atelectasis Category: Medical (6) Asthma: Code(s): J45.909 - Unspecified asthma, uncomplicated Category: Medical Qualifiers: Asthma complication type: uncomplicated Asthma persistence: persistent Asthma severity: moderate Qualified Code(s): J45.40 - Moderate persistent asthma, uncomplicated (7) Chest discomfort: Code(s): R07.89 - Other chest pain Category: Medical Plan Continue symbicort start Spiriva daily CT chest in 09/2025, prefers [facility] Cardiology referral for a nuclear stress test F/U 6-8 months Medications: New tiotropium bromide 2.5 mcg/actuation (Spiriva Respimat) 2 puffs inhalation DAILY 1 ea 11RF 30 days Coding Level of Care Code Est Pt Level 4 (45835) Complex EM visit Add On G2211 Diagnoses Asthma-COPD overlap syndrome J44.9 Pulmonary nodules R91.8 Sjogren's syndrome with keratoconjunctivitis sicca M35.01 Dyspnea on exertion R06.09 Dyspnea type: dyspnea on exertion Atelectasis J98.11 Moderate persistent asthma without complication J45.40 Asthma complication type: uncomplicated Asthma persistence: persistent Asthma severity: moderate Chest discomfort R07.89 Time Spent (min) 17
[2025-04-02 14:43] VITALS: BP 142/74; PULSE 75; O2SAT 96; BMI 33.5
--- OUTSIDE RECORDS SUMMARY | 2025-04-02 15:56 | XMS_ITS | Encounter Summary ---
Author Organization [facility] Address [address] [place] [address] Care Team Providers Care Vice President Sales And Marketing Name Role Phone Lawrence Gary MD Primary Care Provider [phone] Encounter Details Date Type Department Care Team (Late st Contact Info) Description 10/11/2016 Scanned Document [address] [place] [phone] Provider, Generic Social History Tobacco Use Types [...] on filedocumented in this encounter Care Teams Vice President Sales And Marketing Relationship Specialty Start Date End Date Lawrence Gary MD [address] [place] [address] PCP - General Psychiatry, General 10/18/16 documented as of this encounter
--- OUTSIDE RECORDS SUMMARY | 2025-04-02 15:56 | XMS_ITS | Encounter Summary ---
Author Organization [facility] Address [address] [place] [address] Care Team Providers Care Oil And Gas Recruiter Name Role Phone Lawrence Gary MD Primary Care Provider [phone] Encounter Details Date Type Department Care Team (Late st Contact Info) Description 08/04/2007 Scanned Document [facility] Colorectal Surgery [address] [place] [address] Provider, Qasim, [address] [place] [address] Social History Tobacco Use Types Packs/Day Years [...] on filedocumented in this encounter Care Teams Oil And Gas Recruiter Relationship Specialty Start Date End Date Lawrence Gary MD [address] [place] [address] PCP - General Psychiatry, General 10/18/16 documented as of this encounter
--- OUTSIDE RECORDS SUMMARY | 2025-04-02 15:56 | XMS_ITS | Encounter Summary ---
Author Organization [facility] Address [address] [place] [address] Care Team Providers Care Custom Car Builder Name Role Phone Lawrence Gary MD Primary Care Provider [phone] Encounter Details Date Type Department Care Team (Late st Contact Info) Description 04/19/2017 Scanned Document [facility] Colorectal Surgery [address] [place] [address] Provider, Qasim, [address] [place] [address] Social History Tobacco Use Types Packs/Day Years [...] on filedocumented in this encounter Care Teams Custom Car Builder Relationship Specialty Start Date End Date Lawrence Gary MD [address] [place] [address] PCP - General Psychiatry, General 10/18/16 documented as of this encounter
--- OUTSIDE RECORDS SUMMARY | 2025-04-02 15:56 | XMS_ITS | Encounter Summary ---
Author Organization [facility] Address [address] [place] [address] Care Team Providers Care Loom Fixer Supervisor Name Role Phone Lawrence Gary MD Primary Care Provider [phone] Encounter Details Date Type Department Care Team (Late st Contact Info) Description 02/07/2014 Scanned Document [address] [place] [phone] Provider, Generic Social History Tobacco Use Types [...] filedocumented in this encounter Care Teams Loom Fixer Supervisor Relationship Specialty Start Date End Date Lawrence Gary MD [facility] [place] [address] PCP - General Psychiatry, General 10/18/16 documented as of this encounter
--- OUTSIDE RECORDS SUMMARY | 2025-04-02 15:56 | XMS_ITS | Encounter Summary ---
Author Organization [facility] Address [address] [place] [address] Care Team Providers Care Web Operations Specialist Name Role Phone Lawrence Gary MD Primary Care Provider [phone] Encounter Details Date Type Department Care Team (Late st Contact Info) Description 04/21/2022 Scanned Document [facility] Pulmonary [address] [place] [phone] Pulmonary, Scan Social History Tobacco Use Types Packs/Day Years Used Date Smoking Tobacco: Former Cigarettes 2 5 1 969 - 2914 Smokeless Tobacco: Never Alcohol Use Standard Drinks/Week [...] on filedocumented in this encounter Care Teams Web Operations Specialist Relationship Specialty Start Date End Date Lawrence Gary MD [address] [place] [address] PCP - General Psychiatry, General 10/18/16 documented as of this encounter
--- OUTSIDE RECORDS SUMMARY | 2025-04-02 15:56 | XMS_ITS | Encounter Summary ---
Author Organization [facility] Address [address] [place] [address] Care Team Providers Care Pharmacologist Name Role Phone Lawrence Gary MD Primary Care Provider [phone] Encounter Details Date Type Department Care Team (Late st Contact Info) Description 10/25/2023 Scanned Document [facility] Pulmonary [address] [place] [phone] Pulmonary, Scan Social History Tobacco Use Types [...] on filedocumented in this encounter Care Teams Pharmacologist Relationship Specialty Start Date End Date Lawrence Gary MD [address] [place] [address] PCP - General Psychiatry, General 10/18/16 documented as of this encounter
--- OUTSIDE RECORDS SUMMARY | 2025-04-02 15:56 | XMS_ITS | Encounter Summary ---
Author Organization [facility] Address [address] [place] [address] Care Team Providers Care Sensitizer Name Role Phone Lawrence Gary MD Primary Care Provider [phone] Encounter Details Date Type Department Care Team (Late st Contact Info) Description 10/21/2000 Scanned Document [facility] Colorectal Surgery [address] [place] [address] Provider, Qasim, [address] [place] [address] Social History Tobacco Use Types Packs/Day Years [...] on filedocumented in this encounter Care Teams Sensitizer Relationship Specialty Start Date End Date Lawrence Gary MD [address] [place] [address] PCP - General Psychiatry, General 10/18/16 documented as of this encounter
--- OUTSIDE RECORDS SUMMARY | 2025-04-02 15:56 | XMS_ITS | Encounter Summary ---
Author Organization [facility] Address [address] [place] [address] Care Team Providers Care Drafter Marine Name Role Phone Lawrence Gary MD Primary Care Provider [phone] Encounter Details Date Type Department Care Team (Late st Contact Info) Description 08/24/2016 Scanned Document [address] [place] [phone] Provider, Generic Social History Tobacco Use Types [...] on filedocumented in this encounter Care Teams Drafter Marine Relationship Specialty Start Date End Date Lawrence Gary MD [address] [place] [address] PCP - General Psychiatry, General 10/18/16 documented as of this encounter
--- OUTSIDE RECORDS SUMMARY | 2025-04-02 15:56 | XMS_ITS | Clinical Summary ---
Author Organization [facility] Address [address] [place] [address] Phone Care Team Providers Care Compliance Consultant Name Role Phone Cee Fabiola MARTINEZ Primary Care Provider [phone] Allergies Active Allergy Reactions Criticality Noted Date [...] antihypertensive medications are managed by the patient's germination testing manager whom she sees on a regular basis. germination testing manager next month. The patient was instructed [...] antihypertensive medications are managed by the patient's germination testing manager whom she sees on a regular basis. germination testing manager next month. The patient was instructed [...] Description 06/11/2025 2:30 PM EST Office Visit [facility] [address] [place] [address] Kris-Benton Carreno MD [address] [place] [address] [address] [place] [address] Health Maintenance Due Date Last [...] Documents on File Type Date Recorded Patient Theater Projectionist Expl anation Health Care Decision (hx) 07/23/2011 AD RENEE DIRECTIVE Health Care Decision (hx) 07/23/2011 AD ERNEE DIRECTIVE Health Care Decision (hx) 07/23/2011 AD RENEE DIRECTIVE Health Care Decision (hx) 07/23/2011 AD RENEE DIRECTIVE Care Teams Compliance Consultant Relationship Specialty Start Date End Date Fabiola Mike NP [address] [place] [phone] PCP - General Primary Care 09/14/24
--- OUTSIDE RECORDS SUMMARY | 2025-04-02 15:56 | XMS_ITS | Clinical Summary ---
Author Organization [facility] Address [address] [place] [address] Phone Care Team Providers Care Geologic Technician Name Role Phone Duran Gomez MD Primary [...] Visit [facility] [address] [place] [phone] Jude Pinto MD [address] [phone] Health Maintenance Due Date Last Done Comments Breast Cancer Screening 1950 Pneumococcal Vaccine: 50+ Years (1 of 2 - PCV) 1969 Colorectal Cancer Screening: Annual FOBT 1999 Colorectal Cancer Screening: Colonoscopy 1999 Colorectal Cancer Screening: Sigmoidoscopy 1999 Influenza Vaccine (#1) 2025 , 07/17/2018 Hepatitis B Vaccine Aged Out No longe r eligible based on patient's age to complete this topic Insurance [facility] Care Teams Geologic Technician Relationship Specialty Start Date End Date Duran Gomez MD [address] [place] [address] PCP - General Family Medicine 12/29/23
--- OUTSIDE RECORDS SUMMARY | 2025-04-02 15:56 | XMS_ITS | Clinical Summary ---
Author Organization [employer] Address [address] [facility] 7[address] [place] [address] Care Team Providers Care Preprint Analyst Name Role Phone Unavailable Primary Care Provider [...]
--- OUTSIDE RECORDS SUMMARY | 2025-04-02 15:56 | XMS_ITS | Encounter Summary ---
Author Organization [facility] Address [address] [place] [address] Care Team Providers Care Tire Curer Name Role Phone Lawrence Gary MD Primary Care Provider [phone] Encounter Details Date Type Department Care Team (Late st Contact Info) Description 10/19/2000 Scanned Document [facility] Colorectal Surgery [address] [place] [address] Provider, Qasim, [address] [place] [address] Social History Tobacco Use Types Packs/Day Years [...] on filedocumented in this encounter Care Teams Tire Curer Relationship Specialty Start Date End Date Lawrence Gary MD [address] [place] [address] PCP - General Psychiatry, General 10/18/16 documented as of this encounter
--- OUTSIDE RECORDS SUMMARY | 2025-04-02 15:56 | XMS_ITS | Encounter Summary ---
Author Organization [facility] Address [address] [place] [address] Care Team Providers Care Die Maker Name Role Phone Lawrence Gary MD Primary Care Provider [phone] Encounter Details Date Type Department Care Team (Late st Contact Info) Description 2017 Scanned Document [facility] Colorectal Surgery [address] [place] [address] Lawrence Gary MD [facility] [place] [address] Social History Tobacco Use Types Packs/Day Years [...] on filedocumented in this encounter Care Teams Die Maker Relationship Specialty Start Date End Date Lawrence Gary MD [address] [place] [address] PCP - General Psychiatry, General 10/18/16 documented as of this encounter
--- OUTSIDE RECORDS SUMMARY | 2025-04-02 15:56 | XMS_ITS | Encounter Summary ---
Author Organization [facility] Address [address] [place] [address] Care Team Providers Care Black Ash Burner Operator Name Role Phone Lawrence Gary MD Primary Care Provider [phone] Encounter Details Date Type Department Care Team (Late st Contact Info) Description 07/09/2014 Scanned Document [address] [place] [phone] Provider, Generic Social History Tobacco Use Types [...] on filedocumented in this encounter Care Teams Black Ash Burner Operator Relationship Specialty Start Date End Date Lawrence Gary MD [address] [place] [address] PCP - General Psychiatry, General 10/18/16 documented as of this encounter
--- OUTSIDE RECORDS SUMMARY | 2025-04-02 15:56 | XMS_ITS | Encounter Summary ---
Author Organization [facility] Address [address] [place] [address] Care Team Providers Care Supervisor Area Name Role Phone Lawrence Gary MD Primary Care Provider Encounter Details Date Type Department Care Team (Late st Contact Info) Description 08/23/[address] [facility] Colorectal Surgery [address] [place] [address] Provider, External, [address] [place] [address] Social History Tobacco Use Types Packs/Day Years [...] on filedocumented in this encounter Care Teams Supervisor Area Relationship Specialty Start Date End Date Lawrence Gary MD [address] [place] [address] PCP - General Psychiatry, General 10/18/16 documented as of this encounter
--- OUTSIDE RECORDS SUMMARY | 2025-04-02 15:56 | XMS_ITS | Clinical Summary ---
Author Organization [facility] Address [address] [place] [address] Care Team Providers Care Fire Fighter [employer] Name Role Phone Lawrence Gary MD Primary Care Provider [phone] Allergies Active Allergy Reactions Criticality Noted Date [...] Documents on File Type Date Recorded Patient International Organizer Jose Rafael white Advance Directive-Scan 06/07/2017 * Full Code (Latest Code Status on File) Date Activated Date Inactivated Comments 06/27/2017 5:44 PM * Full Code Date Activated Date Inactivated Comments 06/27/2017 8:25 AM 06/27/2017 5:44 PM Care Teams Fire Fighter [employer] Relationship Specialty Start Date End Date Lawrence Gary MD [facility] [place] [address] PCP - General Psychiatry, General 10/18/16
--- OUTSIDE RECORDS SUMMARY | 2025-04-02 15:56 | XMS_ITS | Encounter Summary ---
Author Organization [employer] Address [address] [facility] 7 [place] [address] Care Team Providers Care Life Insurance Actuary Name Role Phone Unavailable Primary Care Provider [...]
--- OUTSIDE RECORDS SUMMARY | 2025-04-02 15:56 | XMS_ITS | Encounter Summary ---
Author Organization [facility] Address [address] [facility] 7 [place] [address] Care Team Providers Care Precision Farming Specialist Name Role Phone Unavailable Primary Care [...]
--- OUTSIDE RECORDS SUMMARY | 2025-04-02 15:56 | XMS_ITS | Encounter Summary ---
Author Organization [facility] Address [address] [place] [address] Care Team Providers Care Enterprise Systems Architect Name Role Phone Lawrence Gary MD Primary Care Provider Encounter Details Date Type Department Care Team (Late st Contact Info) Description 07/06/2006 Scanned Document [address] [phone] Provider, Generic Social History Tobacco Use Types [...] filedocumented in this encounter Care Teams Enterprise Systems Architect Relationship Specialty Start Date End Date Lawrence Gary MD [address] [place] [address] PCP - General Psychiatry, General 10/18/16 documented as of this encounter
== END 2025-04-02 15:11 | disposition home or self-care (01) ==
LOC: HO.HPS 14:41
PROVIDERS: PCP Internal Medicine; Visit Provider Hospitalist
DX: J44.9 Chronic obstructive pulmonary disease, unspecified (principal); R91.8 Other nonspecific abnormal finding of lung field; M35.01 Sjogren syndrome with keratoconjunctivitis; R06.09 Other forms of dyspnea; J98.11 Atelectasis; J45.40 Moderate persistent asthma, uncomplicated; R07.89 Other chest pain
CPT/HCPCS: 99214

== ENCOUNTER 2025-05-22 14:07 | Outpatient (AMB) | payer BC, SELFPAY ==
--- NOTE | 2025-05-22 14:10 | A.OFFVIS_ITS ---
Vital Signs 05/22/25 14:12 Height 5 ft 8 in Weight 220 lb BMI 33.4 BP 140/63 H Blood Pressure Location Rt brachial Position Sitting Respiration 16 Pulse 84 Pulse Source Pulse Oximeter Pulse Oximetry (%) 93 Oxygen Delivery Method Room Air Intake Visit Reasons: Low Back Pain Clinical Psychology Professor Required: No Accompanied by: Self / Same As Patient Allergies acetaminophen (From PERCOCET) Allergy (Severe, Verified 04/02/25 14:45) RASH latex Allergy (Severe, Verified 04/02/25 14:45) Rash HPI Comments Details: Agnes is very pleasant 75 years old female who presents in my office with complains on pain in lower back with radiation of the pain into the bilateral lower extremities on the right the pain radiates to the level of the knee and on the left the pain radiates to the upper thigh she reports that walking increases her pain flexing forward aggravates her pain Valsalva maneuver does not affects her pain and bending over to strip picker stuff from the floor aggravates her pain also prolonged sitting aggravates her pain. Because of her pain she can not sleep normally can not do activities of daily living she is able to take care of herself and from time to time she is able to function normally. He is retired individual she sometimes needs walker for ambulation. She reports that heat topical medications and oral medications make her pain better. Her pain is most severe in the morning and the evening and less severe in the afternoon. In terms of tissue damage he describes her pain as tingling, stinging, dull, sore, hurting, aching, radiating, and piercing sensation. She had an MRI of the lumbar spine results of which dictated as below. She had physical therapy very extensive at [facility] which did not help her pain and she had chiropractic manipulations which made her pain worse. She received trochanteric injections by her primary care physician in the past but Nevro injections to address her lower back pain. Her past medical history significant for hypertension dizziness and fainting shortness for breath asthma digestive problems and arthritis. Past surgical history significant for total hysterectomy in appendicitis in rectocele in 1999 bladder suspension in 1999, colon resection in 1999 and hemicolectomy in 2018. She admits stopping smoking cigarettes 50 years ago she drinks 4 oz of scotch daily, she drinks caffeinated beverages 12 oz daily and she denies recreational drugs. [facility] Medical History Dyspnea Chest discomfort GERD (gastroesophageal reflux disease) RP (rectal prolapse) Hemoptysis Asthma-COPD overlap syndrome Osteopenia Atelectasis Pulmonary nodules Asthma Surgical History H/O: hysterectomy Hx of cholecystectomy Family History Mother Asthma HTN (hypertension) Cardiovascular disease Sister Asthma HTN (hypertension) Cancer Paternal Grandmother Colon cancer Social History Household Members: Spouse Both parents involved: No Caregiver staying overnight: No Housing: Apartment Are you a primary manager managed care to a significant other at home: No Do you presently have visiting nurse or other home services: No 75 years or older and lives alone: No Alcohol intake: never Patient Tobacco Use Status: Never used Tobacco e-Cigarette/Vaping Use: Never Used service: No Current occupational status: retired Current occupational exposures/hazards: No Cognitive needs: No Hearing needs: Yes Vision needs: Yes (wear glasses) Review of Systems Const All systems reviewed & are unremarkable except as noted in HPI and below ENT Reports Normal hearing present Neuro Reports Normal hearing present, Denies Abnormal speech present, Denies confusion and Denies Sensory deficit (Neuro) Psych Denies confusion Physical Exam Vital Signs: Last Vital Signs Pulse 84 05/22/25 14:12 Resp 16 05/22/25 14:12 BP 140/63 H 05/22/25 14:12 Pulse Ox 93 05/22/25 14:12 Oxygen Delivery Method Room Air 05/22/25 14:12 BMI result Body Mass Index 33.4 Const General: no acute distress; No confusion Orientation/consciousness: patient oriented x3 and No confusion Eyes General: appearance normal, both eyes and all related structures Pupils: Equal, round and reactive pupils present EOM: EOMs intact bilaterally Neck Neck: Yes full ROM Chest Chest palpation & inspection: normal inspection of the chest Resp Effort & Inspection: normal respiratory effort, able to speak in complete senten javier, normal respiratory pattern, no audible wheezes and no cough Cardio Jugular venous distension: no JVD GI Inspection: Yes normal to inspection Back/Spine/Pelvis Other: SLR is negative bilaterally, Lasegue test is negative bilaterally, Valsalva is negative, loading test is negative, Serafin test is negative, [place] test is negative, pelvic compression and pelvic distraction test bilaterally negative. Bending forward aggravates her pain bending backwards does not affects her pain. Neuro General: patient oriented x3, gait normal and No confusion Cranial nerves: Yes CN's II-XII intact bilaterally, Yes Equal, round and reactive pupils present, Yes Normal hearing present and Yes Ability to bilaterally elevate shoulders present Speech: No Abnormal speech present Gait exam (Neuro): Normal gait present Motor exam (neuro): 5/5 motor strength present throughout Sensory Exam: No Sensory deficit (Neuro) Extrem General: No pedal edema Psych Speech and movement: Normal speech and movement present Affect: normal affect Attitude: cooperative Thought process: Normal thought process present Thought content: Normal thought content present Insight: Good insight present (Psych) Judgement: Good judgement present (Psych) Results Reviewed Results Reviewed: MRI of the lumbar spine was obtained using routine sequences without contrast. FINDINGS: Last rib-bearing vertebra labeled T12. There is a small and superior endplate compression deformity representing 20% volume loss with associated bone marrow STIR signal center and the L3 vertebra. Multilevel marginal osteophyte formation and decreased intervertebral disc height pronounced at L2-3. Grade 1 anterolisthesis L4-5 and to a lesser extent L3-4. Conus medullaris ends at pedicle of L1 with normal signal. T12-L1: No herniated disc. No neuroforamina stenosis. L1-2: Broad-based disc bulging. Facet joint and ligamentum flavum hypertrophy. No compression upon neural elements. L2-3: Broad-based disc bulging. Facet joint and ligamentum flavum hypertrophy. CSF effacement of thecal sac and reduced AP diameter of the central spinal canal. Bilateral, left greater than the right side neuroforamina narrowing. There is likely encroachment of the neural elements of the thecal sac and exiting nerve roots. L3-4: Broad-based disc bulging. Facet joint and ligamentum flavum hypertrophy. Reduced AP diameter of the thecal sac and bilateral neuroforamina stenosis encroaching the neural elements both thecal sac and exiting nerve roots. L4-5: Broad-based disc bulging. Facet joint and ligamentum flavum hypertrophy. Reduced AP diameter of the thecal sac and bilateral neuroforamina stenosis likely encroaching the neural elements. L5-S1: Broad-based disc bulging. Facet joint hypertrophy. Bilateral neuroforamina stenosis likely encroaching the exiting nerve roots. No prevertebral compartment hematoma, mass or fluid collection. Asymmetric volume loss right psoas muscle. Fatty signal within the lower lumbar muscles from L4 likely denervation.. IMPRESSION: Multilevel spondylosis resulting in central spinal canal stenosis at L3-4, L2-3 and to a lesser extent L4-5 and bilateral neuroforamina stenosis at L3-4 and L5-S1 and to a lesser extent L4-5 likely encroaching the neural elements. Grade 1 anterolisthesis L4-5 on a degenerative basis. Assessment & Plan Assessment & Plan (1) Spondylolisthesis at L4-L5 level: Code(s): M43.16 - Spondylolisthesis, lumbar region Category: Medical Plan Initially I was thinking about cluneal nerve block to diagnose and treat the pain of this patient because on the physical exam I could not point out on any neuropathic or facetogenic pain, however unstable spondylolisthesis needs to be ruled out 1st. I will order x-ray of the lumbar spine bending only to make sure that there is no unstable spondylolisthesis. I will schedule this patient for appointment with me in 2 weeks and we will discuss further pain management depending on the x-ray results. If unstable spondylolisthesis would be found I will refer her to Neurosurgery. Orders: Orders XR lumbar spine bending only Today M43.16 - Spondylolisthesis, lumbar region Patient Instructions: I here by testify that I spent 45 minutes in conversation with this patient as well as evaluating patient diagnostic records as well as evaluating patient's prior injections as well as planning her care and organizing this note. Coding Level of Care Code New Pt Level 4 (35408) Diagnoses Spondylolisthesis at L4-L5 level M43.16
[2025-05-22 14:12] VITALS: BP 140/63; PULSE 84; RESP 16; O2SAT 93; BMI 33.4
--- OUTSIDE RECORDS SUMMARY | 2025-05-22 20:21 | XMS_ITS | Encounter Summary ---
Author Organization [facility] Address [address] [place] [address] Care Team Providers Care Motorman/Woman Name Role Phone Lawrence Gary MD Primary Care Provider [phone] Encounter Details Date Type Department Care Team (Late st Contact Info) Description 08/24/2016 Scanned Document [address] [place] [phone] Provider, Generic Social History Tobacco Use Types [...] on filedocumented in this encounter Care Teams Motorman/Woman Relationship Specialty Start Date End Date Lawrence Gary MD [address] [place] [address] PCP - General Psychiatry, General 10/18/16 documented as of this encounter
--- OUTSIDE RECORDS SUMMARY | 2025-05-22 20:21 | XMS_ITS | Clinical Summary ---
Author Organization [facility] Address [address] [place] [address] Care Team Providers Care Pipe And Tank Fabricator Name Role Phone Lawrence Gary MD Primary Care Provider [phone] Allergies Active Allergy Reactions Criticality Noted Date [...] Zoster (Shingles) Vaccine (1 of 2) 2000 DXA Bone Density (Females,Ages 65 and older) 2015 Influenza Vaccine 03/01/2025 05/15/2007 COVID-19 Vaccine (1 - 2023-2 5 season) 2025 RSV Vaccine 50 years and older and Patients (1 - 1-dose 75+ series) 2025 Colonoscopy 06/27/2027 06/27/2017, 02/07/2014 Advance Care Planning [...] Documents on File Type Date Recorded Patient Book Salesman Expl anatdread Advance Directive-Scan 06/07/2017 * Full Code (Latest Code Status on File) Date Activated Date Inactivated Comments 06/27/2017 5:44 PM * Full Code Date Activated Date Inactivated Comments 06/27/2017 8:25 AM 06/27/2017 5:44 PM Care Teams Pipe And Tank Fabricator Relationship Specialty Start Date End Date Lawrence Gary MD [facility] [place] [address] PCP - General Psychiatry, General 10/18/16
--- OUTSIDE RECORDS SUMMARY | 2025-05-22 20:21 | XMS_ITS | Clinical Summary ---
Author Organization [employer] Address [address] [facility] 7t [place] [address] Care Team Providers Care Spring Internship Name Role Phone Unavailable Primary Care Provider [...] 1962 DTaP/Tdap/Td Vaccines (1 - Tdap) 1969 Pneumococcal Vaccine: 50+ Ye ars (1 of 1 - PCV) 2000 Zoster Vaccines (1 of 2) 2000 COVID-19 Vaccine (1 - 2023-2 5 season) 2025 Influenza Vaccine (#1) 2025 RSV Patients and [...]
--- OUTSIDE RECORDS SUMMARY | 2025-05-22 20:21 | XMS_ITS | Encounter Summary ---
Author Organization [facility] Address [address] [place] [address] Care Team Providers Care Head Turbine Operator Name Role Phone Lawrence Gary MD Primary Care Provider [phone] Encounter Details Date Type Department Care Team (Late st Contact Info) Description 04/21/2022 Scanned Document [facility] Pulmonary [address] [place] [phone] Pulmonary, Scan Social History Tobacco Use Types Packs/Day Years Used Date Smoking Tobacco: Former Cigarettes 2 5 1 [phone] - 2696 Smokeless Tobacco: Never Alcohol Use Standard Drinks/Week [...] on filedocumented in this encounter Care Teams Head Turbine Operator Relationship Specialty Start Date End Date Lawrence Gary MD [address] [place] [address] PCP - General Psychiatry, General 10/18/16 documented as of this encounter
--- OUTSIDE RECORDS SUMMARY | 2025-05-22 20:21 | XMS_ITS | Encounter Summary ---
Author Organization [facility] Address [address] [place] [address] Care Team Providers Care Applications Development Analyst Name Role Phone Lawrence Gary MD Primary Care Provider [phone] Encounter Details Date Type Department Care Team (Late st Contact Info) Description 08/04/2007 Scanned Document [facility] Colorectal Surgery [address] [place] [address] Provider, Qasim, [address] [place] [address] Social History Tobacco Use Types Packs/Day Years [...] on filedocumented in this encounter Care Teams Applications Development Analyst Relationship Specialty Start Date End Date Lawrence Gary MD [address] [place] [address] PCP - General Psychiatry, General 10/18/16 documented as of this encounter
--- OUTSIDE RECORDS SUMMARY | 2025-05-22 20:21 | XMS_ITS | Encounter Summary ---
Author Organization [facility] Address [address] [place] [address] Care Team Providers Care Home Delivery Driver Name Role Phone Lawrence Gary MD Primary Care Provider [phone] Encounter Details Date Type Department Care Team (Late st Contact Info) Description 2017 Scanned Document [facility] Colorectal Surgery [address] [place] [address] Lawrence Gary MD [facility] [place] [address] Social History Tobacco Use Types Packs/Day Years [...] on filedocumented in this encounter Care Teams Home Delivery Driver Relationship Specialty Start Date End Date Lawrence Gary MD [address] [place] [address] PCP - General Psychiatry, General 10/18/16 documented as of this encounter
--- OUTSIDE RECORDS SUMMARY | 2025-05-22 20:21 | XMS_ITS | Encounter Summary ---
Author Organization [facility] Address [address] [place] [address] Care Team Providers Care Road Supervisor Name Role Phone Lawrence Gary MD Primary Care Provider Encounter Details Date Type Department Care Team (Late st Contact Info) Description 02/07/2014 Scanned Document [address] [place] [phone] Provider, Generic Social History Tobacco Use Types [...] on filedocumented in this encounter Care Teams Road Supervisor Relationship Specialty Start Date End Date Lawrence Gary MD [facility] [place] [address] PCP - General Psychiatry, General 10/18/16 documented as of this encounter
--- OUTSIDE RECORDS SUMMARY | 2025-05-22 20:21 | XMS_ITS | Encounter Summary ---
Author Organization [facility] Address [address] [place] [address] Care Team Providers Care Fire Protection Engineer Name Role Phone Lawrence Gary MD Primary Care Provider [phone] Encounter Details Date Type Department Care Team (Late st Contact Info) Description 10/19/2000 Scanned Document [facility] Colorectal Surgery [address] [place] [address] Provider, Qasim, [address] [place] [address] Social History Tobacco Use Types Packs/Day Years [...] on filedocumented in this encounter Care Teams Fire Protection Engineer Relationship Specialty Start Date End Date Lawrence Gary MD [address] [place] [address] PCP - General Psychiatry, General 10/18/16 documented as of this encounter
--- OUTSIDE RECORDS SUMMARY | 2025-05-22 20:21 | XMS_ITS | Encounter Summary ---
Author Organization [facility] Address [address] [place] [address] Care Team Providers Care Turbogenerator Operator Name Role Phone Lawrence Gary MD Primary Care Provider [phone] Encounter Details Date Type Department Care Team (Late st Contact Info) Description 04/19/2017 Scanned Document [facility] Colorectal Surgery [address] [place] [address] Provider, Qasim, [address] [place] [address] Social History Tobacco Use Types Packs/Day Years [...] on filedocumented in this encounter Care Teams Turbogenerator Operator Relationship Specialty Start Date End Date Lawrence Gary MD [address] [place] [address] PCP - General Psychiatry, General 10/18/16 documented as of this encounter
--- OUTSIDE RECORDS SUMMARY | 2025-05-22 20:21 | XMS_ITS | Encounter Summary ---
Author Organization [facility] Address [address] [place] [address] Care Team Providers Care Motion Picture Director Name Role Phone Lawrence Gary MD Primary Care Provider [phone] Encounter Details Date Type Department Care Team (Late st Contact Info) Description 08/23/2000 Scanned Document [facility] Colorectal Surgery [address] [place] [address] Provider, External, [address] [place] [address] Social History Tobacco Use Types Packs/Day Years [...] on filedocumented in this encounter Care Teams Motion Picture Director Relationship Specialty Start Date End Date Lawrence Gary MD [address] [place] [address] PCP - General Psychiatry, General 10/18/16 documented as of this encounter
--- OUTSIDE RECORDS SUMMARY | 2025-05-22 20:21 | XMS_ITS | Encounter Summary ---
Author Organization [facility] Address [address] [place] [address] Care Team Providers Care Burrer Operator Name Role Phone Lawrence Gary MD Primary Care Provider [phone] Encounter Details Date Type Department Care Team (Late st Contact Info) Description 07/09/2014 Scanned Document [address] [place] [phone] Provider, Generic Social History Tobacco Use Types [...] on filedocumented in this encounter Care Teams Burrer Operator Relationship Specialty Start Date End Date Lawrence Gary MD [address] [place] [address] PCP - General Psychiatry, General 10/18/16 documented as of this encounter
--- OUTSIDE RECORDS SUMMARY | 2025-05-22 20:21 | XMS_ITS | Encounter Summary ---
Author Organization [facility] Address [address] [place] [address] Care Team Providers Care Optical Element Coater Name Role Phone Lawrence Gary MD Primary Care Provider [phone] Encounter Details Date Type Department Care Team (Late st Contact Info) Description 10/21/2000 Scanned Document [facility] Colorectal Surgery [address] [place] [address] Provider, Qasim, [address] [place] [address] Social History Tobacco Use Types Packs/Day Years [...] on filedocumented in this encounter Care Teams Optical Element Coater Relationship Specialty Start Date End Date Lawrence Gary MD [address] [place] [address] PCP - General Psychiatry, General 10/18/16 documented as of this encounter
--- OUTSIDE RECORDS SUMMARY | 2025-05-22 20:21 | XMS_ITS | Clinical Summary ---
Author Organization [facility] Address [address] [place] [address] Phone Care Team Providers Care Hub Associate Name Role Phone Cee Fabiola MARTINEZ Primary Care Provider [phone] Allergies Active Allergy Reactions Criticality Noted Date [...] antihypertensive medications are managed by the patient's microwave remote sensing scientist whom she sees on a regular basis. microwave remote sensing scientist next month. The patient was instructed to continue to monitor her blood pressure at home. Dyspnea 07/15/2020 Moderate persistent asthma 07/15/2020 Asthma 07/09/2017 Diverticulitis 07/09/2017 Lung nodules 07/09/2017 Immunizations Immunization Administration Dates Next Due Influenza Quadravalent, MDCK [...] antihypertensive medications are managed by the patient's microwave remote sensing scientist whom she sees on a regular basis. microwave remote sensing scientist next month. The patient was instructed to [...] Description 06/11/2025 2:30 PM EST Office Visit [facility] [address] [place] [address] Kris-Benton Carreno MD [address] [place] [address] [address] [place] [address] Health Maintenance Due Date Last Done Comments Colorectal Cancer Screening: Colonoscopy 1950 DTaP,Tdap,and Td Vaccines (1 - Tdap) 1969 Pneumococcal Vaccine: 50+ Ye ars (1 of 2 - PCV) 1969 Zoster Vaccines (1 of 2) 2000 Depression Screening 08/01/2024 Cholesterol Screening (Lipid Panel) 09/14/2024 Falls Risk Assessment 09/14/2024 Hepatitis C Screening 09/14/2024 Hypertension/CHF/CAD Annual BMP Blood Test 09/14/2024 Medicare Annual Wellness Visit 09/14/2024 Osteoporosis Screening (Bone Density Screening) 09/14/2024 Social Influencers of Health Screening 09/14/2024 COVID-19 Vaccine (1 - 2023-2 5 season) 2025 Influenza Vaccine (#1) 2025 07/17/2018 RSV Immunization Adult Patie nts (1 - 1-dose 75+ series) 2025 HIB [...] patient's age to complete this topic Insurance [facility] MEDICARE ADVANTAGE [facility] MEDICARE ADVANTAGE Advance Directives Documents on File Type Date Recorded Patient Appraiser Auditor Expl anation Health Care Decision (hx) 07/23/2011 AD RENEE DIRECTIVE Health Care Decision (hx) 07/23/2011 AD RENEE DIRECTIVE Health Care Decision (hx) 07/23/2011 AD RENEE DIRECTIVE Health Care Decision (hx) 07/23/2011 AD RENEE DIRECTIVE Care Teams Hub Associate Relationship Specialty Start Date End Date Fabiola Mike NP [address] [facility] 1 [place] [address] PCP - General Primary Care 09/14/24
--- OUTSIDE RECORDS SUMMARY | 2025-05-22 20:21 | XMS_ITS | Encounter Summary ---
Author Organization [facility] Address [address] [place] [address] Care Team Providers Care Neuro Ophthalmologist Name Role Phone Lawrence Gary MD Primary Care Provider [phone] Encounter Details Date Type Department Care Team (Late st Contact Info) Description 10/11/2016 Scanned Document [address] [place] [phone] Provider, Generic Social History Tobacco Use Types [...] on filedocumented in this encounter Care Teams Neuro Ophthalmologist Relationship Specialty Start Date End Date Lawrence Gary MD [address] [place] [address] PCP - General Psychiatry, General 10/18/16 documented as of this encounter
--- OUTSIDE RECORDS SUMMARY | 2025-05-22 20:21 | XMS_ITS | Encounter Summary ---
Author Organization [employer] Address [address] [facility] 7 [place] [address] Care Team Providers Care Oil And Gas Principal Name Role Phone Unavailable Primary Care Provider [...]
--- OUTSIDE RECORDS SUMMARY | 2025-05-22 20:21 | XMS_ITS | Encounter Summary ---
Author Organization [facility] Address [address] [place] [address] Care Team Providers Care Subject Scientific Research Name Role Phone Lawrence Gary MD Primary Care Provider Encounter Details Date Type Department Care Team (Late st Contact Info) Description 07/06/2006 Scanned Document [address] [phone] Provider, Generic Social History Tobacco Use Types [...] on filedocumented in this encounter Care Teams Subject Scientific Research Relationship Specialty Start Date End Date Lawrence Gary MD [address] [place] [address] PCP - General Psychiatry, General 10/18/16 documented as of this encounter
--- OUTSIDE RECORDS SUMMARY | 2025-05-22 20:21 | XMS_ITS | Encounter Summary ---
Author Organization [facility] Address [address] [place] [address] Care Team Providers Care Lining Stamper Name Role Phone Lawrence Gary MD Primary Care Provider [phone] Encounter Details Date Type Department Care Team (Late st Contact Info) Description 10/25/2023 Scanned Document [facility] Pulmonary [place] [address] [facility] [address] [place] [address] Pulmonary, Scan Social History Tobacco Use Types [...] on filedocumented in this encounter Care Teams Lining Stamper Relationship Specialty Start Date End Date Lawrence Gary MD [address] [place] [address] PCP - General Psychiatry, General 10/18/16 documented as of this encounter
--- OUTSIDE RECORDS SUMMARY | 2025-05-22 20:21 | XMS_ITS | Encounter Summary ---
Author Organization [employer] Address [address] [facility] 7 [place] [address] Care Team Providers Care Laborer Shellfish Processing Name Role Phone Unavailable Primary Care Provider [...]
== END 2025-05-22 14:48 | disposition home or self-care (01) ==
LOC: HO.PMC 14:08
PROVIDERS: PCP Internal Medicine; Referring Provider Internal Medicine Rheumatology; Visit Provider Anesthesiology
DX: M43.16 Spondylolisthesis, lumbar region (principal)
CPT/HCPCS: 99204

== ENCOUNTER 2025-05-23 10:58 | Outpatient (REF) | payer BC, SELFPAY ==
--- NOTE | ~2025-05-23 | XR_ITS ---
EXAMINATION: XR LUMBOSACRAL SPINE BENDING FILMS ONLY CLINICAL INFORMATION: M43.16 - Spondylolisthesis, lumbar region COMPARISON: December 12, 2024 TECHNIQUE: Lateral: Flexion, neutral, and extension view x-rays of the lumbar spine. FINDINGS: There clips related to cholecystectomy. There are also surgical clips visible anterior to the mid to lower lumbar spine. There are 5 nonrib-bearing lumbar segments. T12-L1: Unremarkable L1-2: Mild disc space during. L2-3: Mild disc space narrowing and endplate sclerosis. Facet osteophytes are present. L3-4: Minimal disc space narrowing and endplate osteophytes with facet sclerosis and osteophytes. L4-5: There is subtle anterolisthesis without instability. There is minimal disc space narrowing and facet sclerosis. L5-S1: There is facet sclerosis. XR/XR lumbar spine bending only IMPRESSION: Mild degenerative disc disease and facet osteoarthritis. No instability during flexion and extension. Electronically signed by: Dinesh Martines MD 05/23/2025 11:37 AM EDT
== END 2025-05-23 10:59 | disposition home or self-care (01) ==
LOC: HO.XRAY 10:58
PROVIDERS: Visit Provider Anesthesiology
DX: M43.16 Spondylolisthesis, lumbar region (principal)
CPT/HCPCS: 72120

== ENCOUNTER → 2025-05-23 11:06 | Outpatient (BNV) | payer BC, SELFPAY | PROVIDERS: Visit Provider Radiology Diagnostic Radiology | DX: M51.369 Other intervertebral disc degeneration, lumbar region without mention of lumbar back pain or lower extremity pain (principal); M47.816 Spondylosis without myelopathy or radiculopathy, lumbar region | CPT/HCPCS: 72120 ==

== ENCOUNTER 2025-06-25 13:23 | Outpatient (AMB) | payer BC, SELFPAY ==
[2025-06-25 13:25] VITALS: BP 150/100; PULSE 93; O2SAT 95; BMI 34.0
--- NOTE | 2025-06-25 13:25 | A.OFFVIS_ITS ---
Vital Signs 06/25/25 13:25 Height 5 ft 8 in Weight 223 lb 12.307 oz BMI 34.0 BP 150/100 H Blood Pressure Location Rt brachial Position Sitting Pulse 93 Pulse Source Pulse Oximeter Pulse Oximetry (%) 95 Oxygen Delivery Method Room Air Intake Visit Reasons: 3 months Intake Note: Patent presents today for back pain follow up.BIlateral cortisone injection Accompanied by: Self / Same As Patient Allergies acetaminophen (From PERCOCET) Allergy (Severe, Verified 06/25/25 13:28) RASH latex Allergy (Severe, Verified 06/25/25 13:28) Rash HPI HPI 3 months: Details: Last trochanteric bursa cortisone injections gave her 2 months of benefit. She has seen her spinal doctor who is recommending an L-spine cortisone injection. After visit she had x-ray of her L-spine. She completed PT for lower back strengthening. [facility] Medical History Dyspnea Chest discomfort GERD (gastroesophageal reflux disease) RP (rectal prolapse) Hemoptysis Asthma-COPD overlap syndrome Osteopenia Atelectasis Pulmonary nodules Asthma Surgical History H/O: hysterectomy Hx of cholecystectomy Family History Mother Asthma HTN (hypertension) Cardiovascular disease Sister Asthma HTN (hypertension) Cancer Paternal Grandmother Colon cancer Social History Household Members: Spouse Both parents involved: No Caregiver staying overnight: No Housing: Apartment Are you a primary rn progressive care unit to a significant other at home: No Do you presently have visiting nurse or other home services: No 75 years or older and lives alone: No Alcohol intake: never Patient Tobacco Use Status: Never used Tobacco e-Cigarette/Vaping Use: Never Used service: No Current occupational status: retired Current occupational exposures/hazards: No Cognitive needs: No Hearing needs: Yes Vision needs: Yes (wear glasses) Physical Exam Vital Signs: Last Vital Signs Pulse 93 06/25/25 13:25 BP 150/100 H 06/25/25 13:25 Pulse Ox 95 06/25/25 13:25 Oxygen Delivery Method Room Air 06/25/25 13:25 BMI result Body Mass Index 34.0 Const Other: General: Comfortable Skin: No lesions seen MSK: Tender bilateral trochanteric bursae. Limited full flexion of hips due to pain. Good external rotation of bilateral hips. Office Procedures AMB Joint Injection/Aspiration Coding 99748 - Large joint Procedure code (CPT) selection complete AMB Joint Injection/Aspiration Coding 64322 - Large joint Procedure code (CPT) selection complete Office Meds lidocaine (PF) 10 mg/mL (1 %) injection solution Performing Provider: Ab Thomas MD Performing Location: [facility] Administered by: Ab Thomas MD on 06/25/25 14:07 Dose Route Admin Location Dispensed Lot Number Expiration Date ND Driver Recruiter 1 mL Infiltration 2 mL [id number] 03/31/28 41292-940-88 [employer]INA [employer] Total Dispensed Waste 2 mL 50 % Kenalog 40 mg/mL suspension for injection Performing Provider: Ab Thomas MD Performing Location: [facility] Administered by: Ab Thomas MD on 06/25/25 14:07 Dose Route Admin Location Dispensed Lot Number Expiration Date [facility] Driver Recruiter 40 mg intrabursal 1 mL [id number] 01/28/27 [address]-0 [employer] Total Dispensed Waste 1 mL 0 % lidocaine (PF) 10 mg/mL (1 %) injection solution Performing Provider: Ab Thomas MD Performing Location: [facility] Administered by: Ab Thomas MD on 06/25/25 14:07 Dose Route Admin Location Dispensed Lot Number Expiration Date [facility] Driver Recruiter 1 mL Infiltration 2 mL [id number] 03/31/28 88006-497-65 SERINA [employer] Total Dispensed Waste 2 mL 50 % Kenalog 40 mg/mL suspension for injection Performing Provider: Ab Thomas MD Performing Location: [facility] Administered by: Ab Thomas MD on 06/25/25 14:07 Dose Route Admin Location Dispensed Lot Number Expiration Date [facility] Driver Recruiter 40 mg intrabursal 1 mL [id number] 01/28/27 [address]-8 [employer] Total Dispensed Waste 1 mL 0 % Assessment & Plan Assessment & Plan (1) Greater trochanteric bursitis of both hips: Comment: Recurrent. Pain is uncontrolled. Cortisone injections are lasting 8-9 weeks. Rheumatology history: Last cortisone injections for bilateral trochanteric bursitis treatment were August 2024, July 2023, September 2022, August 2022, January 2022, 11/2024, 03/2025 Code(s): M70.61 - Trochanteric bursitis, right hip; M70.62 - Trochanteric bursitis, left hip Category: Medical Plan: Patient received bilateral trochanteric bursa cortisone injections PT ordered for patient to do local to her home for hip strengthening Return to clinic in 3 months (2) Low back pain potentially associated with radiculopathy: Comment: Pain is uncontrolled. Code(s): M54.50 - Low back pain, unspecified Category: Medical Plan: She will follow up with pain management for L-spine cortisone injection Weight management referral for medical management (3) Lumbar spondylosis: Code(s): M47.816 - Spondylosis without myelopathy or radiculopathy, lumbar region Category: Medical Plan: See above (4) Osteoarthritis of knees, bilateral: Code(s): M17.0 - Bilateral primary osteoarthritis of knee Category: Medical Plan: Encouraged weight loss. Weight management referral for medical management of weight loss PT ordered for lower extremity strengthening Orders: Orders AMB Joint Injection/Aspiration Today M70.61 - Trochanteric bursitis, right hip, M70.62 - Trochanteric bursitis, left hip AMB Joint Injection/Aspiration Today M70.61 - Trochanteric bursitis, right hip, M70.62 - Trochanteric bursitis, left hip Referrals Medical Weight Management Referral E66.811 - Obesity, class 1, M17.0 - Bilateral primary osteoarthritis of knee Coding Level of Care Code Est Pt Level 4 (30751) Diagnoses Greater trochanteric bursitis of both hips M70.61; M70.62 Low back pain potentially associated with radiculopathy M54.50 Lumbar spondylosis M47.816 Osteoarthritis of knees, bilateral M17.0 CPT Codes Coding - 49743 Large joint: 31024 - Large joint ([id number]) Coding - 06886 Large joint: 61818 - Large joint ([id number])
--- OUTSIDE RECORDS SUMMARY | 2025-06-25 17:15 | XMS_ITS | Encounter Summary ---
Author Organization [facility] Address [address] [place] [address] Care Team Providers Care Front Facer Name Role Phone Lawrence Gary MD Primary Care Provider [phone] Encounter Details Date Type Department Care Team (Late st Contact Info) Description 04/19/2017 Scanned Document [facility] Colorectal Surgery [address] [place] [address] Provider, Qasim, [address] [place] [address] Social History Tobacco Use Types Packs/Day Years [...] on filedocumented in this encounter Care Teams Front Facer Relationship Specialty Start Date End Date Lawrence Gary MD [address] [place] [address] PCP - General Psychiatry, General 10/18/16 documented as of this encounter
--- OUTSIDE RECORDS SUMMARY | 2025-06-25 17:15 | XMS_ITS | Clinical Summary ---
Author Organization [facility] Address [address] [place] [address] Phone Care Team Providers Care Superintendent Plant Protection Name Role Phone Cee Fabiola MARTINEZ Primary Care Provider [phone] Allergies Active Allergy Reactions Criticality Noted Date [...] antihypertensive medications are managed by the patient's storm chaser whom she sees on a regular basis. storm chaser next month. The patient was instructed to [...] antihypertensive medications are managed by the patient's storm chaser whom she sees on a regular basis. storm chaser next month. The patient was instructed to [...] Care Team (Late st Contact Info) Description 08/23/2025 3:00 PM EST Office Visit [facility] [address] [place] [address] Kris-Benton Carreno MD [address] [place] [address] [address] [place] [address] Health Maintenance Due Date Last [...] Health Screening 09/14/2024 COVID-19 Vaccine (1 - 2024-2 6 season) 2025 Influenza Vaccine (#1) 2025 07/17/2018 [...] patient's age to complete this topic Insurance BLUE [place] - [place] MEDICARE ADVANTAGE Advance Directives Documents on File Type Date Recorded Patient Dumpster Driver Expl anation Health Care Decision (hx) 07/23/2011 AD RENEE DIRECTIVE Health Care Decision (hx) 07/23/2011 AD RENEE DIRECTIVE Health Care Decision (hx) 07/23/2011 AD RENEE DIRECTIVE Health Care Decision (hx) 07/23/2011 AD RENEE DIRECTIVE Care Teams Superintendent Plant Protection Relationship Specialty Start Date End Date Fabiola Mike NP [address] [place] [address] [address] [place] [address] PCP - General Primary Care 09/14/24
--- OUTSIDE RECORDS SUMMARY | 2025-06-25 17:15 | XMS_ITS | Encounter Summary ---
Author Organization [email or web address] Address [address] [facility] 7 [place] [address] Care Team Providers Care Carpentry Instructor Name Role Phone Unavailable Primary Care Provider [...]
--- OUTSIDE RECORDS SUMMARY | 2025-06-25 17:15 | XMS_ITS | Encounter Summary ---
Author Organization [facility] Address [address] [place] [address] Care Team Providers Care Outside Upholsterer Name Role Phone Lawrence Gary MD Primary Care Provider Encounter Details Date Type Department Care Team (Late st Contact Info) Description 02/07/2014 Scanned Document [address] [place] [phone] Provider, Generic Social History Tobacco Use Types [...] on filedocumented in this encounter Care Teams Outside Upholsterer Relationship Specialty Start Date End Date Lawrence Gary MD [facility] [place] [address] PCP - General Psychiatry, General 10/18/16 documented as of this encounter
--- OUTSIDE RECORDS SUMMARY | 2025-06-25 17:15 | XMS_ITS | Encounter Summary ---
Author Organization [facility] Address [address] [place] [address] Care Team Providers Care Dispute Coordinator Name Role Phone Lawrence Gary MD Primary Care Provider [phone] Encounter Details Date Type Department Care Team (Late st Contact Info) Description 08/24/2016 Scanned Document [address] [place] [phone] Provider, Generic Social History Tobacco Use Types [...] on filedocumented in this encounter Care Teams Dispute Coordinator Relationship Specialty Start Date End Date Lawrence Gary MD [address] [place] [address] PCP - General Psychiatry, General 10/18/16 documented as of this encounter
--- OUTSIDE RECORDS SUMMARY | 2025-06-25 17:15 | XMS_ITS | Clinical Summary ---
Author Organization [employer] Address [address] [facility] 7t [place] [address] Care Team Providers Care Lead Scientist Name Role Phone Unavailable Primary Care Provider [...] of 2) 2000 COVID-19 Vaccine ( - 2024-2 6 season) 2025 Influenza Vaccine (#1) 2025 RSV [...]
--- OUTSIDE RECORDS SUMMARY | 2025-06-25 17:15 | XMS_ITS | Clinical Summary ---
Author Organization [facility] Address [address] [place] [address] Phone Care Team Providers Care Wrapper Stemmer Hand Name Role Phone Duran Gomez MD Primary [...] Visit [facility] [address] [place] [phone] Jude Pinto MD [address] [phone] Health Maintenance Due Date Last Done Comments Breast Cancer Screening 1950 Pneumococcal Vaccine: 50+ Years (1 of 2 - PCV) 1969 Colorectal Cancer Screening: Annual FOBT 1999 Colorectal Cancer Screening: Colonoscopy 1999 Colorectal Cancer Screening: Sigmoidoscopy 1999 Influenza Vaccine (#1) 2025 , 07/17/2018 Hepatitis B Vaccine Aged Out No longe r eligible based on patient's age to complete this topic Insurance [facility] Care Teams Wrapper Stemmer Hand Relationship Specialty Start Date End Date Duran Gomez MD [address] [place] [address] PCP - General Family Medicine 12/29/23
--- OUTSIDE RECORDS SUMMARY | 2025-06-25 17:15 | XMS_ITS | Clinical Summary ---
Author Organization [facility] Address [address] [place] [address] Care Team Providers Care Machine Cloth Measurer Name Role Phone Lawrence Gary MD Primary Care Provider [phone] Allergies Active Allergy Reactions Criticality Noted Date [...] Documents on File Type Date Recorded Patient [facility] Expl anatdread Advance Directive-Scan 06/07/2017 * Full Code (Latest Code Status on File) Date Activated Date Inactivated Comments 06/27/2017 5:44 PM * Full Code Date Activated Date Inactivated Comments 06/27/2017 8:25 AM 06/27/2017 5:44 PM Care Teams Machine Cloth Measurer Relationship Specialty Start Date End Date Lawrence Gary MD [facility] [place] [address] PCP - General Psychiatry, General 10/18/16
--- OUTSIDE RECORDS SUMMARY | 2025-06-25 17:15 | XMS_ITS | Encounter Summary ---
Author Organization [facility] Address [address] [place] [address] Care Team Providers Care Technical Adjuster Name Role Phone Lawrence Gary MD Primary Care Provider [phone] Encounter Details Date Type Department Care Team (Late st Contact Info) Description 10/25/[address] [facility] Pulmonary [place] [address] [facility] [address] [place] [address] Pulmonary, Scan Social History Tobacco Use Types [...] on filedocumented in this encounter Care Teams Technical Adjuster Relationship Specialty Start Date End Date Lawrence Gary MD [address] [place] [address] PCP - General Psychiatry, General 10/18/16 documented as of this encounter
--- OUTSIDE RECORDS SUMMARY | 2025-06-25 17:15 | XMS_ITS | Encounter Summary ---
Author Organization [facility] Address [address] [place] [address] Care Team Providers Care Shallot Packer Name Role Phone Lawrence Gary MD Primary Care Provider [phone] Encounter Details Date Type Department Care Team (Late st Contact Info) Description 04/21/[address] [facility] Pulmonary [address] [place] [phone] Pulmonary, Scan Social History Tobacco Use Types Packs/Day Years Used Date Smoking Tobacco: Former Cigarettes 2 5 1 969 - 6776 Smokeless Tobacco: Never Alcohol Use Standard Drinks/Week [...] on filedocumented in this encounter Care Teams Shallot Packer Relationship Specialty Start Date End Date Lawrence Gary MD [address] [place] [address] PCP - General Psychiatry, General 10/18/16 documented as of this encounter
--- OUTSIDE RECORDS SUMMARY | 2025-06-25 17:15 | XMS_ITS | Encounter Summary ---
Author Organization [facility] Address [address] [place] [address] Care Team Providers Care Motor Block Mechanic Name Role Phone Lawrence Gary MD Primary Care Provider [phone] Encounter Details Date Type Department Care Team (Late st Contact Info) Description 2017 Scanned Document [facility] Colorectal Surgery [address] [place] [address] Lawrence Gary MD [facility] [place] [address] Social History Tobacco Use Types Packs/Day Years [...] on filedocumented in this encounter Care Teams Motor Block Mechanic Relationship Specialty Start Date End Date Lawrence Gary MD [address] [place] [address] PCP - General Psychiatry, General 10/18/16 documented as of this encounter
--- OUTSIDE RECORDS SUMMARY | 2025-06-25 17:15 | XMS_ITS | Encounter Summary ---
Author Organization [facility] Address [address] [place] [address] Care Team Providers Care Ict Programmer Name Role Phone Lawrence Gary MD Primary Care Provider [phone] Encounter Details Date Type Department Care Team (Late st Contact Info) Description 10/11/2016 Scanned Document [address] [place] [phone] Provider, Generic Social History Tobacco Use Types [...] on filedocumented in this encounter Care Teams Ict Programmer Relationship Specialty Start Date End Date Lawrence Gary MD [address] [place] [address] PCP - General Psychiatry, General 10/18/16 documented as of this encounter
--- OUTSIDE RECORDS SUMMARY | 2025-06-25 17:15 | XMS_ITS | Encounter Summary ---
Author Organization [facility] Address [address] [place] [address] Care Team Providers Care Assistant Professor Of Life Sciences Name Role Phone Lawrence Gary MD Primary Care Provider [phone] Encounter Details Date Type Department Care Team (Late st Contact Info) Description 08/23/2000 Scanned Document [facility] Colorectal Surgery [address] [place] [address] Provider, External, [address] [place] [address] Social History Tobacco Use Types Packs/Day Years [...] on filedocumented in this encounter Care Teams Assistant Professor Of Life Sciences Relationship Specialty Start Date End Date Lawrence Gary MD [address] [place] [address] PCP - General Psychiatry, General 10/18/16 documented as of this encounter
--- OUTSIDE RECORDS SUMMARY | 2025-06-25 17:15 | XMS_ITS | Encounter Summary ---
Author Organization [facility] Address [address] [place] [address] Care Team Providers Care Industrial Analyst Name Role Phone Lawrence Gary MD Primary Care Provider [phone] Encounter Details Date Type Department Care Team (Late st Contact Info) Description 07/06/2006 Scanned Document [address] [phone] Provider, Generic Social History Tobacco Use Types [...] on filedocumented in this encounter Care Teams Industrial Analyst Relationship Specialty Start Date End Date Lawrence Gary MD [address] [place] [address] PCP - General Psychiatry, General 10/18/16 documented as of this encounter
--- OUTSIDE RECORDS SUMMARY | 2025-06-25 17:15 | XMS_ITS | Encounter Summary ---
Author Organization [employer] Address [address] [place] [address] Care Team Providers Care Commercial Lines Account Manager Name Role Phone Unavailable Primary Care [...]
--- OUTSIDE RECORDS SUMMARY | 2025-06-25 17:15 | XMS_ITS | Encounter Summary ---
Author Organization [facility] Address [address] [place] [address] Care Team Providers Care Rolling Mill Operator Name Role Phone Lawrence Gary MD Primary Care Provider [phone] Encounter Details Date Type Department Care Team (Late st Contact Info) Description 10/21/2000 Scanned Document [facility] Colorectal Surgery [address] [place] [address] Provider, Qasim, [address] [place] [address] Social History Tobacco Use Types Packs/Day Years [...] on filedocumented in this encounter Care Teams Rolling Mill Operator Relationship Specialty Start Date End Date Lawrence Gary MD [address] [place] [address] PCP - General Psychiatry, General 10/18/16 documented as of this encounter
--- OUTSIDE RECORDS SUMMARY | 2025-06-25 17:15 | XMS_ITS | Encounter Summary ---
Author Organization [facility] Address [address] [place] [address] Care Team Providers Care Online Education Manager Name Role Phone Lawrence Gary MD Primary Care Provider [phone] Encounter Details Date Type Department Care Team (Late st Contact Info) Description 08/04/2007 Scanned Document [facility] Colorectal Surgery [address] [place] [address] Provider, Qasim, [address] [place] [address] Social History Tobacco Use Types Packs/Day Years [...] on filedocumented in this encounter Care Teams Online Education Manager Relationship Specialty Start Date End Date Lawrence Gary MD [address] [place] [address] PCP - General Psychiatry, General 10/18/16 documented as of this encounter
--- OUTSIDE RECORDS SUMMARY | 2025-06-25 17:15 | XMS_ITS | Encounter Summary ---
Author Organization [facility] Address [address] [place] [address] Care Team Providers Care Intensive Care Specialist Name Role Phone Lawrence Gary MD Primary Care Provider [phone] Encounter Details Date Type Department Care Team (Late st Contact Info) Description 10/19/2000 Scanned Document [facility] Colorectal Surgery [address] [place] [address] Provider, Qasim, [address] [place] [address] Social History Tobacco Use Types Packs/Day Years [...] on filedocumented in this encounter Care Teams Intensive Care Specialist Relationship Specialty Start Date End Date Lawrence Gary MD [address] [place] [address] PCP - General Psychiatry, General 10/18/16 documented as of this encounter
--- OUTSIDE RECORDS SUMMARY | 2025-06-25 17:15 | XMS_ITS | Encounter Summary ---
Author Organization [facility] Address [address] [place] [address] Care Team Providers Care Station Detective Name Role Phone Lawrence Gary MD Primary Care Provider [phone] Encounter Details Date Type Department Care Team (Late st Contact Info) Description 07/09/2014 Scanned Document [address] [place] [phone] Provider, Generic Social History Tobacco Use Types [...] on filedocumented in this encounter Care Teams Station Detective Relationship Specialty Start Date End Date Lawrence Gary MD [address] [place] [address] PCP - General Psychiatry, General 10/18/16 documented as of this encounter
== END 2025-06-25 13:58 | disposition home or self-care (01) ==
LOC: HO.RHES 13:23
PROVIDERS: PCP Internal Medicine; Visit Provider Internal Medicine Rheumatology
DX: M70.61 Trochanteric bursitis, right hip (principal); M70.62 Trochanteric bursitis, left hip; M54.50 Low back pain, unspecified; M47.816 Spondylosis without myelopathy or radiculopathy, lumbar region; M17.0 Bilateral primary osteoarthritis of knee
CPT/HCPCS: 20610; 99213

== ENCOUNTER → 2025-06-25 13:23 | Outpatient (BNVA) | payer BC, SELFPAY | PROVIDERS: PCP Internal Medicine; Visit Provider Internal Medicine Rheumatology | DX: M70.61 Trochanteric bursitis, right hip (principal); M70.62 Trochanteric bursitis, left hip | CPT/HCPCS: 20610; J2003; J3301 ==